=== PATIENT | male | born 1940 | race Caucasian/White ===

== ENCOUNTER 2018-03-30 09:27 | Inpatient (IN) | payer OTHER ==
[~2018-03-30] VITALS: Ht 167.6 cm; Wt 66.1 kg
[2018-03-30 10:07] LABS: BASOPHILS ABSOLUTE AUTO 0.03 K/mm3 (0.00-0.23); BASOPHILS PERCENT AUTO 0 % (0-2); EOSINOPHILS ABSOLUTE AUTO 0.24 K/mm3 (0.00-0.68); EOSINOPHILS PERCENT AUTO 2 % (0-6); Hematocrit 46.5 % (37.0-53.0); Hemoglobin 15.8 g/dL (13.5-17.5); IMMATURE GRAN ABSOLUTE AUTO 0.06 K/mm3 (0.00-0.10); IMMATURE GRAN PERCENT AUTO 0 % (0-1); LYMPHOCYTES ABSOLUTE AUTO 0.95 K/mm3 (0.84-5.20); LYMPHOCYTES PERCENT AUTO 6 % (21-46); MONOCYTES ABSOLUTE AUTO 1.43 K/mm3 (0.16-1.47); MONOCYTES PERCENT AUTO 9 % (4-13); Mean Corpuscular HGB 31.6 pg (26.0-34.0); Mean Corpuscular Volume 93 fL (80-100); Mean Platelet Volume 10.3 fL (9.1-12.4); NEUTROPHILS ABSOLUTE AUTO 12.68 K/mm3 (1.96-9.15); NEUTROPHILS PERCENT AUTO 82 % (41-73); Platelet Count 295 K/mm3 (150-400); RDW Standard Deviation 48.4 fL (35.1-46.3); White Blood Cell Count 15.39 K/mm3 (4.00-11.30)
[2018-03-30] MEDS ORDERED: NIAC500ER PO (10:19)
[2018-03-30] MEDS ORDERED: NIAC500 PO (10:19)
[2018-03-30] MEDS ORDERED: Ventolin/Prove6.7 GM INH (10:20)
[2018-03-30] MEDS ORDERED: LISI20 PO (10:20)
[2018-03-30] MEDS ORDERED: METO50ER PO (10:20)
[2018-03-30] MEDS ORDERED: AMLO5 PO (10:20)
[2018-03-30] MEDS ORDERED: Zanaflex4 MG PO (10:20)
[2018-03-30] MEDS ORDERED: CELE200 PO (10:20)
[2018-03-30 10:32] LABS: Alanine Aminotransfer (ALT/SGP 37 U/L (12-78); Albumin, Blood 3.6 g/dL (3.4-5.0); Alk Phos 85 U/L (50-136); Anion Gap 9 mmol/L (6-16); Aspartate Aminotrans (AST/SGOT 29 U/L (12-37); Bilirubin, Total 0.6 mg/dL (0.1-1.0); Blood Urea Nitrogen 18 mg/dL (8-24); Bun/Creatinine Ratio 36.8 (12.0-20.0); CO2, Blood 23 mmol/L (21-32); Calcium, Blood 8.1 mg/dL (8.5-10.1); Chloride, Blood 99 mmol/L (98-108); Creatinine, Blood 0.49 mg/dL (0.60-1.20); Globulin, Blood 3.7 g/dL (2.2-4.0); Glomerular Filtration Rate >60 (60-); Glucose, Blood 141 mg/dL (70-99); Potassium, Blood 3.8 mmol/L (3.5-5.5); Sodium, Blood 131 mmol/L (136-145); Total Protein, Blood 7.3 g/dL (6.4-8.2); Troponin I 0.018 ng/mL (0.000-0.040)
[2018-03-30 14:15] LABS: Adenovirus Not Detected (NOT DETECT); Bordetella pertussis Not Detected (NOT DETECT); Chlamydophila pneumoniae Not Detected (NOT DETECT); Coronavirus 229E Not Detected (NOT DETECT); Coronavirus HKU1 Not Detected (NOT DETECT); Coronavirus NL63 Not Detected (NOT DETECT); Coronavirus OC43 Not Detected (NOT DETECT); Human Metapneumovirus Not Detected (NOT DETECT); Human Rhinovirus/Enterovirus Not Detected (NOT DETECT); Influenza A Not Detected (NOT DETECT); Influenza A/2009-H1 Not Detected (NOT DETECT); Influenza A/H1 Not Detected (NOT DETECT); Influenza A/H3 Not Detected (NOT DETECT); Influenza B Not Detected (NOT DETECT); Mycoplasma pneumoniae Not Detected (NOT DETECT); Parainfluenza Virus 1 Not Detected (NOT DETECT); Parainfluenza Virus 2 Not Detected (NOT DETECT); Parainfluenza Virus 3 Not Detected (NOT DETECT); Parainfluenza Virus 4 Not Detected (NOT DETECT); Respiratory Syncytial Virus Not Detected (NOT DETECT)
--- NOTE | 2018-03-30 17:52 | NUR ---
PT ARRIVED TO PCU 11 VIA ERICH, IN ATTENDENCE, PT IS A/OX3, BUT FEELS THAT HE IS SLIGHTLY CONFUSED DUE TO ATIVAN GIVEN HIM IN ED. HE IS COOPERATIVE WITH CARE, FOLLOWS COMMANDS WELL, DENIES PAIN, LUNGS ARE COURSE WITH EXP WHEEZING T/O, RESP EVEN AND LABORED, HE IS CURRENTLY ON 2 LITERS O2 VIA N/C, HRR, TELE IN PLACE RUNNING SR PER MONITOR, SEE STRIP, TRACE EDEMA NOTED TO B/L LE, PPP FAINT, CAP REFILL <3SEC, VS STABLE, AFEBRILE, IV SITE IS CLEAR AND PATENT, BTX4, ABD FLAT SOFT NONTENDER, VOIDS WITHOUT DIFF, INCONT WHEN ARRIVED TO ROOM, ATTENDS PLACED, SKIN C/W/D, HERI VARGAS, ORIENTED TO ROOM LAYOUT AND CALL SYSTEM.
--- NOTE | 2018-03-30 20:25 | NUR ---
PM NOTE. ASSUMED CARE OF PT APROX 1900, PT IS A&O, PLEASENT AND COOPERATIVE WITH CARE, PT WAS ADMITTED DUE TO RESP FAILURE. PT IS ON 2L NC AT REST AND 4-5 L W/ACTIVITY, PT IS ON RA AT HOME. PT HAS LABORED BREATHING AND DYSPNEA W/ACTIVITY. TELE INTACT, NSR W/PVCS, PT HAS BIGEMINAL PVCS W/ACTIVITY. PT'S BP IS 97/66, TRACE EDEMA NOTED TO THE PT'S BLE. PT'S KNEES AND HANDS ARE BRIGH RED AND WARM TO TOUCH. L/S ARE COARSE T/O W/WHEEZES. BT PRESENT AND HYPERACTIVE, ABD IS SOFT AND NONTENDER TO PALP, PT HAS LARGE UMBILLICAL HERNIA. 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 PT IS A SBA TO THE BSC W/NURSE IN THE ROOM TO INCREASE 02 PRN. CALL LIGHT IN REACH, BED IS LOCKED AND LOW WILL CONTINUE TO MONITOR.
[2018-03-31 04:14] LABS: BASOPHILS ABSOLUTE AUTO 0.01 K/mm3 (0.00-0.23); BASOPHILS PERCENT AUTO 0 % (0-2); EOSINOPHILS PERCENT AUTO 0 % (0-6); Hematocrit 44.1 % (37.0-53.0); IMMATURE GRAN ABSOLUTE AUTO 0.04 K/mm3 (0.00-0.10); IMMATURE GRAN PERCENT AUTO 1 % (0-1); LYMPHOCYTES ABSOLUTE AUTO 0.38 K/mm3 (0.84-5.20); LYMPHOCYTES PERCENT AUTO 5 % (21-46); MONOCYTES ABSOLUTE AUTO 0.26 K/mm3 (0.16-1.47); MONOCYTES PERCENT AUTO 4 % (4-13); Mean Corpuscular HGB 30.9 pg (26.0-34.0); Mean Corpuscular Volume 91 fL (80-100); Mean Platelet Volume 10.3 fL (9.1-12.4); NEUTROPHILS ABSOLUTE AUTO 6.41 K/mm3 (1.96-9.15); NEUTROPHILS PERCENT AUTO 90 % (41-73); Platelet Count 261 K/mm3 (150-400); RDW Standard Deviation 46.7 fL (35.1-46.3); Red Blood Cell Count 4.85 M/mm3 (4.30-5.90)
[2018-03-31 04:33] LABS: Anion Gap 10 mmol/L (6-16); Blood Urea Nitrogen 20 mg/dL (8-24); Bun/Creatinine Ratio 32.1 (12.0-20.0); CO2, Blood 22 mmol/L (21-32); Calcium, Blood 8.7 mg/dL (8.5-10.1); Chloride, Blood 99 mmol/L (98-108); Creatinine, Blood 0.62 mg/dL (0.60-1.20); Glomerular Filtration Rate >60 (60-); Glucose, Blood 146 mg/dL (70-99); Potassium, Blood 4.2 mmol/L (3.5-5.5); Sodium, Blood 131 mmol/L (136-145)
--- NOTE | 2018-03-31 06:35 | NUR ---
SHIFT SUMMARY. NO ACUTE CHANGES NOTED THIS SHIFT. PT VS HAVE BEEN STABLE. PT HAS BEEN STABLE ON 2L NC WHILE AT REST. W/ACTIVITY HE QUICKLY DESATS DOWN TO THE 70'S-80'S, PT REQUIRES INCREASED O2 AT 4-5 L TO RECOVER. PT HAS BEEN HAVING INCREASED/BIGEMINAL PVCS PER TELE, PT HAS HAD 2 APROX 10 SECOND RUNS OF VTACH. PT IS NOT SYMPTOMATIC DURING THESE EPISODES. EKG WAS OBTAINED. CALL LIGHT IN REACH, PT DENIES ANY CHEST PAIN/PRESSURE OR N/V.
[2018-03-31 06:46] LABS: Magnesium, Blood 1.9 mg/dL (1.6-2.4)
--- NOTE | 2018-03-31 13:02 | NUR ---
Note Pt alert and oriented. Slightly ANIAK. VSS. Pt up to recliner at bedside. Voiding per urinal. Sr with pvc. Talked with DR Azul about PVC and runs of VT during the night. No orders at this time. was here thia am. Pt/ met with Dr Azul. Continue pot.
[2018-03-31] MEDS ORDERED: BREO ELLIPTA 11 EACH INH (14:34)
--- NOTE | 2018-03-31 18:47 | NUR ---
EVENING NOTE PT ALERT AND ORIENTED. SR. PT ENJOYINGH BEING UP IN THE CHAIR WATCHING IT SNOW AND DRINKING DECAF COFFEE. DENIED PAIN OR SOB. PT STILL NEEDING 3-4L N/C. ENCOURAGED HIM TO C&DB. VSS. CONTINUE POT.
--- NOTE | 2018-03-31 19:42 | NUR ---
PM NOTE. ASSUMED CARE OF PT APROX 1900, PT IS A&O, PT IS CURRENTLY UP IN RECLINER CHAIR. PT'S BREATHING IS LABORED BUT EVEN W/RR AT 23, PT IS CURRENTLY 93% ON 3L NC. TELE INTACT, NSR W/FREQUENT PVCS IN THE 80'S, PT'S BP 121/76. 3+ EDEMA NOTED TO THE PT'S BLE. L/S COARSE, WHEEZES T/O. ABD IS SLIGHTLY FIRM BUT NONTENDER TO PALP W/UMBILLICAL HERNIA NOTED. CALL LIGHT IN REACH, WILL CONTINUE TO MONITOR.
--- NOTE | 2018-04-01 06:12 | NUR ---
SHIFT SUMMARY. NO ACUTE CHANGES NOTED THIS SHIFT. PT'S VS HAVE BEEN STABLE T/O SHIFT. PT IS CURRENTLY ON 4L NC AT 91% AT REST. WILL TRY TO TITRATE POSSIBLE. PT WOKE UP DISORIENTED, PT GOT UP AND WALKED TO THE VIVAR LOOKING FOR STAFF, PT WAS EASILY REORIENTED. PT DENIES ANY CHEST PAIN/PRESSURE OR N/V. PT IS SOB WITH ACTIVITY. CALL LIGHT IN REACH, BED IS LOCKED AND LOW WILL CONTINUE TO MONITOR UNTIL REPORT IS GIVEN TO ONCOMING SHIFT.
--- NOTE | 2018-04-01 16:59 | NUR ---
IV DRESSING ON THE RIGHT ARM NOTED EDGES WERE COMING LOOSE FROM SKIN. REMOVED OLD DRESSING, VERIFIED PATENCY OF IV AND CLEANSED AREA PER PROTOCOL, NEW STERILE DRESSING APPLIED. PT DENIES ANY TENDERNESS OF THE IV.
--- NOTE | 2018-04-02 05:29 | NUR ---
SHIFT SUMMARY PT A&O X4, PLEASANT AND COOPERATIVE. LUNG SOUNDS COARSE, DIM IN BASES. SPO2 > 92% ON 3L HUMIDIFIED NC. BREATHING TX'S PROVIDED PER ORDERS. MONITOR SHOWS SR W/ FREQUENT PVC'S, SEE RHYTHM STRIPS PRINTED IN CHART. WILL CONTINUE TO MONITOR AND PROVIDE CARE UNTIL REPORT OFF TO DAY SHIFT RN.
--- NOTE | 2018-04-02 08:15 | NUR ---
INITIAL ASSESSMENT: Pt sitting up at edge of bed. States that he is feeling much better. A/O x4. VSS. HR irregular, appears to be in bigeminy this am. LS course. BIox 94% ON 3l NC/ decreased O2 to 2l. BT positive. Pulses palp. Edema in BLE. Call light in reach. Will monitor.
--- NOTE | 2018-04-02 18:54 | NUR ---
SHift Summary: Pt sitting up in recliner chair finishing dinner. Pt has done well this shift on 2L NC. BIox has remained at 90-94%. He was able to get up to shower and tolerated well. VS have been stable this shift. NO acute changes this shift. Will report to night RN.
--- NOTE | 2018-04-02 19:40 | NUR ---
ASSUMED CARE PT RESTING IN ROOM IN CHAIR COMFORTABLY. PER DAY SHIFT PT HAS BEEN IMPROVING ON O2 AND MOBILITY. PT REPORTS LESS SOB WITH AMBULATION. PT REPORTS PROVIDER TOOK PT OFF OXYGEN ENTIRELY THIS AFTERNOON. PT REPORTS WAS P[UT BACK ON IT LATER IN AFTERNOON TO ASSIST W/ SLIGHTLY DYSPNEA. PT ON 2L AT THIS TIME. RESP EVEN UNLABORED, SATS >92%. PT ABLE TO AMBULATE TO RR WITH O2 AND CANE WITH SBA. DENIES PAIN. SKIN PWD. PT REPORTS WILL SLEEP UPRIGHT IN CHAIR TONIGHT IT IS MORE COMFORTABLE FOR HIM. CALL LIGHT IN REACH.
--- NOTE | 2018-04-03 05:43 | NUR ---
SHIFT SUMMARY PT RESTING IN ROOM COMFORTABLY IN CHAIR AT BEDSIDE. NO ACUTE CHANGES IN STATUS OVERBNIGHT. PT DID HAVE ONE RUN OF BIGEMINY PER TELE, SEE GRAPHIC CHART. PT HAS BEEN PAIN FREE T/O NIGHT. SLEPT IN CHAIR PER REQUEST FOR COMFORT. DENIES NEEDS. PT CALLS APPROPRIATELY. PT TITRATED DOWN TO 1.5L NC, TOLERATING WELL. CALL LIGHT IN REACH.
--- NOTE | 2018-04-03 07:45 | NUR ---
INITIAL ASSESSMENT: Pt sitting up in recliner chair, where he slept last noc. Pt states that it was much more comfortable then the bed. Pt on 2L N/C with biox of 92%. BP stable. BT positive. Pulses palp. Pt denies pain at this time. States that he is feeling pretty good. HR irregular, tele still shows bigeminey. NO other changes at this time. Physician in to see pt. WIll follow through with new orders. Call light in reach. Will monitor.
[2018-04-03] MEDS ORDERED: NICO21TP TOP (14:24)
[2018-04-03] MEDS ORDERED: Pedi-Dri 100,0060 GM TOP (14:25)
[2018-04-03] MEDS ORDERED: AZIT250 PO (14:25)
[2018-04-03] MEDS ORDERED: PRED20 PO (14:27)
--- NOTE | 2018-04-03 16:00 | NUR ---
DISCHARGE: PT AND GIVEN DISCHARGE INSTRUCTIONS. VERBALZIED UNDERSTANDING. DENIES QUIESTIONS. IV DISCONTINUED, CATH INTACT. PT LEFT VIA W/C WITH PROCESS AUTOMATION ENGINEER. STABLE AT TIME OF DISCHARGE.
== END 2018-04-03 15:57 | disposition home or self-care (01) | DRG 189 ==
LOC: ER 09:27 → ERHOLD 11:19 → PCU 11:19
PROVIDERS: Emergency Medicine; ADMIT Hospitalist
DX: J96.01 Acute respiratory failure with hypoxia (principal); J44.1 Chronic obstructive pulmonary disease with (acute) exacerbation; J84.9 Interstitial pulmonary disease, unspecified; E87.1 Hypo-osmolality and hyponatremia; F17.210 Nicotine dependence, cigarettes, uncomplicated; J44.9 Chronic obstructive pulmonary disease, unspecified; I10 Essential (primary) hypertension; Z85.46 Personal history of malignant neoplasm of prostate
CPT/HCPCS: 36415; 71046; 80048; 80053; 83735; 83880; 84145; 84484; 85025; 87486; 87581; 87633; 87798; 93005; 93010; 94640; 94644; 94760; 94761; 96365; 96366; 96375; 97162; 97530; 99285-25; J0456; J1650; J1940; J2060; J2930; J7050

== ENCOUNTER 2018-06-10 02:51 | Inpatient (IN) | payer OTHER ==
[~2018-06-10] VITALS: Ht 167.6 cm; Wt 66.8 kg
[~2018-06-10 02:51] MED LIST: AMLO5 PO; AZIT250 PO; BREO ELLIPTA 11 EACH INH; CELE200 PO; LISI20 PO; METO50ER PO; NIAC500 PO; NIAC500ER PO; NICO21TP TOP; PRED20 PO; Pedi-Dri 100,0060 GM TOP; Ventolin/Prove6.7 GM INH; Zanaflex4 MG PO
[2018-06-10 03:11] LABS: BASOPHILS ABSOLUTE AUTO 0.02 K/mm3 (0.00-0.23); BASOPHILS PERCENT AUTO 0 % (0-2); EOSINOPHILS ABSOLUTE AUTO 0.04 K/mm3 (0.00-0.68); EOSINOPHILS PERCENT AUTO 0 % (0-6); Hematocrit 43.8 % (37.0-53.0); Hemoglobin 14.5 g/dL (13.5-17.5); IMMATURE GRAN PERCENT AUTO 1 % (0-1); LYMPHOCYTES PERCENT AUTO 3 % (21-46); MONOCYTES ABSOLUTE AUTO 0.33 K/mm3 (0.16-1.47); MONOCYTES PERCENT AUTO 2 % (4-13); Mean Corpuscular HGB 31.5 pg (26.0-34.0); Mean Corpuscular HGB Conc 33.1 g/dL (31.5-36.5); Mean Corpuscular Volume 95 fL (80-100); Mean Platelet Volume 10.8 fL (9.1-12.4); NEUTROPHILS ABSOLUTE AUTO 15.23 K/mm3 (1.96-9.15); NEUTROPHILS PERCENT AUTO 94 % (41-73); Platelet Count 156 K/mm3 (150-400); RDW Coefficient Variation 15.7 % (11.7-14.2); White Blood Cell Count 16.22 K/mm3 (4.00-11.30)
[2018-06-10 03:28] LABS: Alanine Aminotransfer (ALT/SGP 32 U/L (12-78); Albumin, Blood 3.2 g/dL (3.4-5.0); Albumin/Globulin Ratio 1.2 (0.8-1.8); Alk Phos 52 U/L (50-136); Anion Gap 9 mmol/L (6-16); Aspartate Aminotrans (AST/SGOT 24 U/L (12-37); Bilirubin, Total 0.3 mg/dL (0.1-1.0); Blood Urea Nitrogen 19 mg/dL (8-24); Bun/Creatinine Ratio 26.4 (12.0-20.0); CO2, Blood 19 mmol/L (21-32); Calcium, Blood 7.8 mg/dL (8.5-10.1); Chloride, Blood 107 mmol/L (98-108); Creatinine, Blood 0.72 mg/dL (0.60-1.20); Globulin, Blood 2.7 g/dL (2.2-4.0); Glomerular Filtration Rate >60 (60-); Glucose, Blood 130 mg/dL (70-99); Potassium, Blood 3.8 mmol/L (3.5-5.5); Sodium, Blood 135 mmol/L (136-145); Total Protein, Blood 5.9 g/dL (6.4-8.2); Troponin I 0.143 ng/mL (0.000-0.040)
[2018-06-10 03:40] LABS: International Normalized Ratio 1.02; Prothrombin Time Results 10.8 Sec (9.7-11.5)
[2018-06-10 05:16] LABS: Source, Urine Catheter
[2018-06-10 05:27] LABS: Bilirubin, Urine Neg (Neg); Blood, Urine Neg (Neg); Glucose Qualitative, Urine Neg (Neg); Ketones, Urine Neg (Neg); Leukocyte Esterase, Urine Neg (Neg); Nitrite, Urine Neg (Neg); Protein, Urine 1+ (Neg); Urobilinogen, Urine NORM (Normal)
[2018-06-10 05:30] LABS: Appearance, Urine Clear (Clear); Color, Urine Yellow (P-Yellow)
[2018-06-10 13:21] LABS: Adenovirus Not Detected (NOT DETECT); Bordetella pertussis Not Detected (NOT DETECT); Chlamydophila pneumoniae Not Detected (NOT DETECT); Coronavirus 229E Not Detected (NOT DETECT); Coronavirus HKU1 Not Detected (NOT DETECT); Coronavirus NL63 Not Detected (NOT DETECT); Coronavirus OC43 Not Detected (NOT DETECT); Human Metapneumovirus Not Detected (NOT DETECT); Human Rhinovirus/Enterovirus Not Detected (NOT DETECT); Influenza A Not Detected (NOT DETECT); Influenza A/2009-H1 Not Detected (NOT DETECT); Influenza A/H1 Not Detected (NOT DETECT); Influenza A/H3 Not Detected (NOT DETECT); Influenza B Not Detected (NOT DETECT); Mycoplasma pneumoniae Not Detected (NOT DETECT); Parainfluenza Virus 1 Not Detected (NOT DETECT); Parainfluenza Virus 2 Not Detected (NOT DETECT); Parainfluenza Virus 3 Not Detected (NOT DETECT); Parainfluenza Virus 4 Not Detected (NOT DETECT); Respiratory Syncytial Virus Not Detected (NOT DETECT)
--- NOTE | 2018-06-10 15:10 | NUR ---
0920 ADMIT NOTE... PT ON ADMIT IMMEDIATELY UP TO BSC FOR VOID AND VERY SMALL BM. PT ON 3L AND INC TO 7L WOB INC AND SATS DOWN TO MID 80'S RANGE. PT VERY WEAK AND REQUIRING FULL SBA. LUNG QUITE DIM. TO AND MINIMAL SECRATIONS AT THIS TIME. ABX AND IVF STARTED.
--- NOTE | 2018-06-10 15:28 | NUR ---
PT CHANGED TO PCU STATUS. HE IS CONT TO REQUIRE 6L NC BUT OVERALL WOB IS DOWN AND RESTING CALMLY, BUT DOES DESAT WHILE EATING TO TALKING TO MUCH. VOIDING W/O PROBLEMS.
--- NOTE | 2018-06-10 16:59 | NUR ---
Per admit trigger, I met with Mr. Pagan and his to offer information about Advanced Directives. informed me that pt has both AD and POLST at home, and she will provide copies tomorrow. Pt asked me to pray for those who love him. Provided this and theraputic listening. I will remain available.
--- NOTE | 2018-06-10 18:12 | NUR ---
PT HAS BEEN DOWN FOR CTA OF CHEST WITH RESULTS PENDING. PT CONT TO HAVE MOD SOB AND WOB DESPITE NC O2 AT 6L. SATS REMAIN IN LOW 91-92 RANGE WITH NOTICIABLE EXERSIONAL WOB. PT EARLIEY COUGHED UP BLOODY SPUTUN X 1 THUS FAR. O2 CHANGED TO HUMIDIFIER. PT HAS BEEN VOIDING IN BED AND EVEN THIS WORK WILL CONTRUBUTE TO INC. WOB. VS NOTED.
--- NOTE | 2018-06-10 19:30 | NUR ---
ASSUMED CARE OF PT PT ALERT AND ORIENTED ON 6L HUMIDIFIED AIR VIA NC. PT SOB WITH EXERTION WITH QUICK DESATURATION AND EXTENDED RECOVERY TIME. LUNG SOUNDS CLEAR WITH DIM BASES. LR RUNNING AT 100 ML/HR. SEE FULL SHIFT ASSESSMENT
[2018-06-11 04:37] LABS: BASOPHILS ABSOLUTE AUTO 0.01 K/mm3 (0.00-0.23); BASOPHILS PERCENT AUTO 0 % (0-2); EOSINOPHILS PERCENT AUTO 0 % (0-6); Hematocrit 40.1 % (37.0-53.0); Hemoglobin 13.3 g/dL (13.5-17.5); IMMATURE GRAN PERCENT AUTO 1 % (0-1); LYMPHOCYTES ABSOLUTE AUTO 0.57 K/mm3 (0.84-5.20); LYMPHOCYTES PERCENT AUTO 3 % (21-46); MONOCYTES ABSOLUTE AUTO 1.04 K/mm3 (0.16-1.47); MONOCYTES PERCENT AUTO 6 % (4-13); Mean Corpuscular HGB 31.1 pg (26.0-34.0); Mean Corpuscular HGB Conc 33.2 g/dL (31.5-36.5); Mean Corpuscular Volume 94 fL (80-100); Mean Platelet Volume 10.8 fL (9.1-12.4); NEUTROPHILS ABSOLUTE AUTO 15.05 K/mm3 (1.96-9.15); NEUTROPHILS PERCENT AUTO 90 % (41-73); Platelet Count 132 K/mm3 (150-400); RDW Coefficient Variation 16.1 % (11.7-14.2); RDW Standard Deviation 55.7 fL (35.1-46.3); Red Blood Cell Count 4.27 M/mm3 (4.30-5.90); White Blood Cell Count 16.77 K/mm3 (4.00-11.30)
[2018-06-11 04:51] LABS: Albumin, Blood 2.5 g/dL (3.4-5.0); Anion Gap 8 mmol/L (6-16); Blood Urea Nitrogen 17 mg/dL (8-24); Bun/Creatinine Ratio 23.7 (12.0-20.0); CO2, Blood 21 mmol/L (21-32); Calcium, Blood 8.4 mg/dL (8.5-10.1); Chloride, Blood 107 mmol/L (98-108); Creatinine, Blood 0.72 mg/dL (0.60-1.20); Glomerular Filtration Rate >60 (60-); Glucose, Blood 149 mg/dL (70-99); Phosphorus, Blood 3.4 mg/dL (2.5-4.9); Potassium, Blood 4.1 mmol/L (3.5-5.5); Sodium, Blood 136 mmol/L (136-145)
--- NOTE | 2018-06-11 05:55 | NUR ---
SHIFT SUMMARY PT STABLE THROUGHOUT THE NIGHT. O2 INCREASED TO 7L AT 0000 PT'S SATS WERE BETWEEN 86-88. PT HAS HAD MODERATE AMOUNT OF TALISHA BLOOD AROUND MOUTH AND CHIN FROM COUGHING ON MULTIPLE OCCASIONS. PT COUGHING BLOOD TINGED SPUTUM INTO TISSUE NEEDED. PT AFEBRILE, SBP 140-150'S, HR IN 70'S. 1600 ML URINARY OUTPUT. WILL REPORT TO DAYSHIFT NURSE.
--- NOTE | 2018-06-11 11:24 | NUR ---
0830 PT A/O AND "FEELING FINE". O2 REQUIREMENTS HAVE GONE UP OVER THE NOC AND NOW AT 7L PER HUMIDIFIED NC. PT DENIES CHEST PAIN OR DISTRESS. IS DESAT WITH MINIMAL EXERTION AND COACHED TO CALL FOR ANY ASSISTANCE.
[2018-06-12 04:13] LABS: BASOPHILS ABSOLUTE AUTO 0.01 K/mm3 (0.00-0.23); BASOPHILS PERCENT AUTO 0 % (0-2); EOSINOPHILS PERCENT AUTO 0 % (0-6); Hematocrit 38.3 % (37.0-53.0); Hemoglobin 12.4 g/dL (13.5-17.5); IMMATURE GRAN ABSOLUTE AUTO 0.12 K/mm3 (0.00-0.10); IMMATURE GRAN PERCENT AUTO 1 % (0-1); LYMPHOCYTES ABSOLUTE AUTO 0.37 K/mm3 (0.84-5.20); LYMPHOCYTES PERCENT AUTO 2 % (21-46); MONOCYTES ABSOLUTE AUTO 1.27 K/mm3 (0.16-1.47); MONOCYTES PERCENT AUTO 7 % (4-13); Mean Corpuscular HGB 30.9 pg (26.0-34.0); Mean Corpuscular HGB Conc 32.4 g/dL (31.5-36.5); Mean Corpuscular Volume 96 fL (80-100); Mean Platelet Volume 11.5 fL (9.1-12.4); NEUTROPHILS ABSOLUTE AUTO 15.38 K/mm3 (1.96-9.15); NEUTROPHILS PERCENT AUTO 90 % (41-73); Platelet Count 142 K/mm3 (150-400); RDW Standard Deviation 56.6 fL (35.1-46.3); Red Blood Cell Count 4.01 M/mm3 (4.30-5.90); White Blood Cell Count 17.15 K/mm3 (4.00-11.30)
[2018-06-12 04:37] LABS: Albumin, Blood 2.3 g/dL (3.4-5.0); Anion Gap 6 mmol/L (6-16); Blood Urea Nitrogen 23 mg/dL (8-24); Bun/Creatinine Ratio 35.8 (12.0-20.0); CO2, Blood 23 mmol/L (21-32); Chloride, Blood 107 mmol/L (98-108); Creatinine, Blood 0.64 mg/dL (0.60-1.20); Glomerular Filtration Rate >60 (60-); Glucose, Blood 155 mg/dL (70-99); Phosphorus, Blood 2.8 mg/dL (2.5-4.9); Potassium, Blood 3.9 mmol/L (3.5-5.5); Sodium, Blood 136 mmol/L (136-145)
--- NOTE | 2018-06-12 05:44 | NUR ---
PCU NOC SHIFT SUMMARY PATIENT ALERT AND ORIENTED X4 T/O SHIFT. PATIENT HAS HYPOXIC RESPIRTORY FAILURE - PATIENT EDUCATED ON COUGH AND DEEP BREATHING AND USING HIS FLUTTER VALVE. PATIENT EDUCATED TO BE SITTING UP WHEN DRINKING DUE TO RESPIRTORY EFFORT (WOB). PATIENT REMAINS ON BEDREST T/O SHIFT. PATIENT ON 13 LPM OXYMIZER T/O SHIFT AND NSR WITH NO ACUTE CHANGES NOTED. PICC WNL, DRAWING AND WORKING WELL. FLUIDS RUNNING PER EMAR. CALL LIGHT W/I REACH. WILL CONTINUE TO MONITOR AND REPORT TO DAYSHIFT RN.
--- NOTE | 2018-06-12 13:16 | NUR ---
Assumed care of pt at approx 0700. Pt VSS. This RN noticed discrepancy between heart rate noted on bedside monitor (48 bpm) and telesales specialist monitoring hr (70's). Pt with no signs of bradycardia. All HR assessments now taken from Tele Monitoring. Pt with 4 beat run of VTach while this RN was at bedside. Pt asymptomatic, denied chest pain or chest pressure, denied shortness of breath. No other VTach runs so far this shift. Pt enjoys participating in coversation with staff, pt's mood brightens with interaction. Pt does become SOB with conversation and SIMPSON. Pt educated on eating slowely to maintain o2 sats >88% and educated to limit conversation for improved respiratory function. Dr. Waldron in this am with pt. Repeat Chest Xray ordered and obtained. RT in with pt frequently this shift for CPT and resp tx. Pt currently resting comfortably, VSS, no apparent sign of distress or discomfrt. Will continue to monitor and update as appropriate. See shift assessment for detailed assessment.
--- NOTE | 2018-06-12 17:31 | NUR ---
No acute changes this shift. Pt remains in no apparent sign of distress. Pt educated on cough and deep breathing and has been compliant with teaching, pt coughing up moderate amount of thick sputum. Pt has been followed and tx by RT thoughout shift, RT using CPT. Pt , Megha, at bedside throughout shift. She is a very supportive presence to pt. Pt remains SIMPSON and SOB with converstion, pt reminded to limit conversation in order to focus on maintaining good respiratory saturations. Pt likes to be made aware of interventions and to be updated on condition frequently. Pt A&O, calls appropriately and answers questions appropriately. Pt seems to be mentating appropriately. Pt with stable BP, but on the lower end (noon vitals 97/55). HR stable in 90's per tele monitoring because bedside monitoring has not been accurate. Left arm swelling noted just above elbow, non tender, not warm to the touch, elevated and encouaged pt to mobilize arm. Pt voids with urnial independantly. Pt remains on 13L oxymizer this shift maintaining saturations between 88-92%. Will continue to monitor and update as appropriate.
--- NOTE | 2018-06-12 22:36 | NUR ---
PM NOTE. ASSUMED CARE OF PT APROX 1900, PT IS A&Ox4, PLEASENT AND COOPERATIVE WITH CARE. PT WAS ADMITTED DUE TO PNA AND COPD EXAC. PT IS ON 15L OXYMIZER AND DESATS VERY QUICKLY WITH MOVEMENT OR TALKING. TELE INTACT, NSR W/MANY PVCS IN THE 90'S PER SHAFT MECHANIC. PT'S BP 114/64. PT HAS 2+ PITTING EDEMA TO HIS BLLE, AND GENERALIZED EDEMA TO HIS ARMS/BACK/CHEST. L/S COARSE W/EXP WHEEZES T/O, PT IS ON 15L OXYMIZER, RR 24 EVEN BUT LABORED W/ACCESSORY MUSCLE USE AT TIMES. ABD IS SLIGHTLY DISTENDED, SOFT AND NONTENDER TO PALP, PT HAS UMBILICAL HERNIA PRESENT. BT PRESENT AND HYPOACTIVE. CALL LIGHT IN REACH, BED IS LOCKED AND LOW WILL CONTINUE TO MONITOR.
[2018-06-13 05:53] LABS: BASOPHILS ABSOLUTE AUTO 0.01 K/mm3 (0.00-0.23); BASOPHILS PERCENT AUTO 0 % (0-2); EOSINOPHILS PERCENT AUTO 0 % (0-6); Hematocrit 37.8 % (37.0-53.0); Hemoglobin 12.5 g/dL (13.5-17.5); IMMATURE GRAN ABSOLUTE AUTO 0.17 K/mm3 (0.00-0.10); IMMATURE GRAN PERCENT AUTO 1 % (0-1); LYMPHOCYTES ABSOLUTE AUTO 0.45 K/mm3 (0.84-5.20); LYMPHOCYTES PERCENT AUTO 3 % (21-46); MONOCYTES ABSOLUTE AUTO 0.92 K/mm3 (0.16-1.47); MONOCYTES PERCENT AUTO 7 % (4-13); Mean Corpuscular HGB 31.3 pg (26.0-34.0); Mean Corpuscular HGB Conc 33.1 g/dL (31.5-36.5); Mean Corpuscular Volume 95 fL (80-100); Mean Platelet Volume 11.5 fL (9.1-12.4); NEUTROPHILS ABSOLUTE AUTO 12.52 K/mm3 (1.96-9.15); NEUTROPHILS PERCENT AUTO 89 % (41-73); Platelet Count 147 K/mm3 (150-400); RDW Standard Deviation 56.2 fL (35.1-46.3); White Blood Cell Count 14.07 K/mm3 (4.00-11.30)
--- NOTE | 2018-06-13 05:58 | NUR ---
SHIFT SUMMARY. PT REQUIRED AN AIRVO AT APROX 2330 THIS SHIFT PER RT'S REQUEST. ONCE AIRVO SETTINGS WERE ESTABLISHED AT 55L AND 80% FIO2 PT'S WORK OF BREATHING DECREASED AND PT WAS ABLE TO RELAX. PT STATED THAT HE SLEPT VERY WELL DUE TO THE AIRVO. PT STILL DESATS VERY QUICKLY BUT IS ABLE TO RECOVER QUICKLY WELL. PT'S OTHER VS HAVE BEEN STABLE T/O SHIFT, NO CARDIAC EVENTS NOTED ON TELE. PT DENIES ANY CHEST PAIN/PRESSURE OR N/V. CALL LIGHT IN REACH, BED IS LOCKED AND LOW WILL CONTINUE TO MONITOR UNTIL REPORT IS GIVEN TO ONCOMING RN.
[2018-06-13 06:14] LABS: Albumin, Blood 2.4 g/dL (3.4-5.0); Anion Gap 9 mmol/L (6-16); Blood Urea Nitrogen 24 mg/dL (8-24); Bun/Creatinine Ratio 36.3 (12.0-20.0); CO2, Blood 24 mmol/L (21-32); Calcium, Blood 8.2 mg/dL (8.5-10.1); Chloride, Blood 104 mmol/L (98-108); Creatinine, Blood 0.66 mg/dL (0.60-1.20); Glomerular Filtration Rate >60 (60-); Glucose, Blood 169 mg/dL (70-99); Phosphorus, Blood 3.2 mg/dL (2.5-4.9); Potassium, Blood 3.7 mmol/L (3.5-5.5); Sodium, Blood 137 mmol/L (136-145)
--- NOTE | 2018-06-13 14:31 | NUR ---
Assumed care of pt at approx 0700. VSS and pt in no apparent sign of respiratory distress. Pt denies chest pain or chest pressure. Pt denies general pain at this time. Pt states he has chronic neck pain but refuses lidocain patch. Pt a&ox4, answers questions appropriately, responds and converses as at baseline. Uses call light PRN. , Megha, with pt at bedside on and off throughout shift. Pt breathing e/u on airvo. pt boosted as needed throughout shift, able to shift in bed to comfort. ABX tx continued this AM. No acute changes so far this shift. Will continue to monitor and update as appropriate. See shift assessment for detailed assessment.
--- NOTE | 2018-06-13 18:33 | NUR ---
Pt improving overall this shift. VSS. Pt with more energy and strength this shift noted with his ability to sit on the edge of the bed for dinner this evening. Pt A&Ox4. No changes or regression in mentation noted. Pt responds appropriately, calls appropriately, is able to position self to comfort, needs help with boosts, makes needs known. Dr. Aranda in with pt this afternoon. Increase in lasix ordered and given per orders. Pt voids with urinal independantly. Dr Aranda relayed to pt that he expects his hospital stay to be between 7-10 days. Pt maintaining oxygen saturations 88-93% on 80% fio2 and 55L airvo. Pt very conversational, but becomes SIMPSON and SOB with conversation. Will continue to monitor and update as appropriate
--- NOTE | 2018-06-13 23:10 | NUR ---
PM NOTE ASSUMED CARE OF PT APROX 1900, PT IS A&Ox4, PLEASENT AND COOPERATIVE WITH CARE. PT WAS ADMITTED DUE TO PNA AND HYPOXIA. PT IS CURRENTLY ON THE AIRVO AT 55L AND 80%FIO2. TELE INTACT, NSR W/MANY PVCS IN THE 90'S PER SUPERVISOR BORDER DEPARTMENT, PT'S BP 117/81. PT HAS 2+ EDEMA TO HIS BLLE AND GENERALIZED EDEMA T/O. PT'S L/S CLEAR IN THE UPPER BASES AND FINE CRACKELS T/O THE MID RIGHT AND LEFT LOWER LOBES. RR IS 28, EVEN AND SLIGHTLY LABORED. BT PRESENT AND HYPERACTIVE, ABD IS SOFT AND NONTENDER TO PALP. CALL LIGHT IN REACH, BED IS LOCKED AND LOW WILL CONTINUE TO MONITOR.
[2018-06-14 03:58] LABS: BASOPHILS ABSOLUTE AUTO 0.02 K/mm3 (0.00-0.23); BASOPHILS PERCENT AUTO 0 % (0-2); EOSINOPHILS PERCENT AUTO 0 % (0-6); Hematocrit 40.4 % (37.0-53.0); Hemoglobin 13.2 g/dL (13.5-17.5); IMMATURE GRAN ABSOLUTE AUTO 0.29 K/mm3 (0.00-0.10); IMMATURE GRAN PERCENT AUTO 2 % (0-1); LYMPHOCYTES ABSOLUTE AUTO 0.67 K/mm3 (0.84-5.20); LYMPHOCYTES PERCENT AUTO 5 % (21-46); MONOCYTES PERCENT AUTO 8 % (4-13); Mean Corpuscular HGB 30.9 pg (26.0-34.0); Mean Corpuscular HGB Conc 32.7 g/dL (31.5-36.5); Mean Corpuscular Volume 95 fL (80-100); Mean Platelet Volume 11.6 fL (9.1-12.4); NEUTROPHILS ABSOLUTE AUTO 11.32 K/mm3 (1.96-9.15); NEUTROPHILS PERCENT AUTO 85 % (41-73); NRBC ABSOLUTE 0.05 K/mm3 (0.00-0.02); NRBC Auto 0.4 /100 WBC (0.0-0.2); Platelet Count 171 K/mm3 (150-400); RDW Coefficient Variation 15.9 % (11.7-14.2); RDW Standard Deviation 55.8 fL (35.1-46.3); Red Blood Cell Count 4.27 M/mm3 (4.30-5.90)
[2018-06-14 04:21] LABS: Albumin, Blood 2.5 g/dL (3.4-5.0); Anion Gap 9 mmol/L (6-16); Blood Urea Nitrogen 24 mg/dL (8-24); Bun/Creatinine Ratio 39.7 (12.0-20.0); CO2, Blood 26 mmol/L (21-32); Calcium, Blood 8.1 mg/dL (8.5-10.1); Chloride, Blood 102 mmol/L (98-108); Creatinine, Blood 0.61 mg/dL (0.60-1.20); Glomerular Filtration Rate >60 (60-); Glucose, Blood 166 mg/dL (70-99); Phosphorus, Blood 3.6 mg/dL (2.5-4.9); Potassium, Blood 3.5 mmol/L (3.5-5.5); Sodium, Blood 137 mmol/L (136-145)
--- NOTE | 2018-06-14 06:41 | NUR ---
SHIFT SUMMARY. NO ACUTE CHANGES NOTED THIS SHIFT. PT HAS SLEPT A FEW HOURS THIS SHIFT. PT'S O2 STATUS HAS SLIGHTLY IMPROVED FROM PREVIOUS SHIFT, HIS AIRVO SETTING ARE STILL 55L AND 80% FIO2 W/O2 SATS AT 93%. PT HAS BEEN ABLE TO USE THE URINAL INDEPENDENTLY T/O THIS SHIFT. PT'S VS HAVE BEEN STABLE. PT DENIES ANY CHEST PAIN/PRESSURE, N/V. CALL LIGHT IN REACH, BED IS LOCKED AND LOW WILL CONTINUE TO MONITOR UNTIL REPORT IS GIVEN TO ONCOMING RN.
--- NOTE | 2018-06-14 08:15 | NUR ---
INITIAL ASSESSMENT: PT IS SITTIGN UP ON THE EDGE OF THE BED WITH LABORED BREATHING. PT STATES HE WAS ABLE TO GET HIMSELF TO A DANGLING POSITION INDEPENDENTLY, THAT IS WHY HE IS SO WINDED. PT IS ALERT AND OX3. PT DENIES PAIN AT THIS TIME. HRR, SR WITH PVC'S PER FRAME HAND. PT IS ON AIRVO 55L WITH 80% FIO2, RT WAS ABLE TO TITRATE DOWN TO 70% FIO2 AT THIS TIME. PT STATES HE HAS BEEN COUGHING UP ALOT MORE SINCE RT DID CPT THIS AM. SOME BROWN TINGED SPUTUM NOTED, PT STATES EARLIER IT WAS A LITTLE MORE RED, WILL CONTINUE TO REASSESS THIS. LS DIM T/O. PT HAS PC WITH THICK SPUTUM. BT+. PT HAS UMBILLICAL HERNIA, PT STATES THIS IS CHRONIC. PPP. SOME PITTING EDEMA NOTED TO BLE. VSS. PT DENIES NEEDS AT THIS TIME, CALL LIGHT IN REACH.
--- NOTE | 2018-06-14 11:45 | NUR ---
ASSESSMENT: INITIAL ASSESSMENT UNCHAGED. VSS. RT HAS BEEN SLOWLY TITRATING OXYGEN DOWN ON THE AIRVO, CURRENTLY THE SETTINGS ARE 45L WITH A 53% FIO2. PT IS OOB TO THE CHAIR. SPUTUM IS NOW A CLEAR COLOR. IS AT BEDSIDE. PT DENIES OTHER NEEDS AT THIS TIME. CALL LIGHT IN REACH.
--- NOTE | 2018-06-14 12:55 | NUR ---
PT WAS ASSISTED TO BSC. PT COMMENTED ON HOW WEAK HIS LEGS ARE, BUT HE WAS ABLE TO PIVOT TRANSFER TO BSC, PT HAD SMALL BM. PT BACK TO CHAIR. PT DENIES OTHER NEEDS AT THIS TIME, WILL CONTINUE TO MONITOR.
--- NOTE | 2018-06-14 17:00 | NUR ---
ASSESSMENT UNCHAGED FROM INITIAL ASSESSMENT. VSS. MEDS GIVEN. PT IS SITTING ON THE COMMODE, STATES HE WANTS TO STAY ON THE COMMODE UNTIL HE HAS A BM. PT DENIES OTHER NEEDS AT THIS TIME. CALL LIGHT IN REACH, WILL CONTINUE TO MONITOR.
--- NOTE | 2018-06-14 18:35 | NUR ---
PT HAS DONE REALLY WELL T/O THE SHIFT. OXYGEN ON AIRVO HAS BEEN ABLE TO BE TITRATED DOWN TO 45L AND FIO2 DOWN TO 45%. VSS, T/O THE SHIFT. NO ACUTE CHANGES THIS SHIFT, WILL REPORT TO ONCOMING RN.
[2018-06-15 05:14] LABS: BASOPHILS ABSOLUTE AUTO 0.06 K/mm3 (0.00-0.23); BASOPHILS PERCENT AUTO 0 % (0-2); EOSINOPHILS PERCENT AUTO 0 % (0-6); Hematocrit 40.7 % (37.0-53.0); Hemoglobin 13.4 g/dL (13.5-17.5); IMMATURE GRAN ABSOLUTE AUTO 0.77 K/mm3 (0.00-0.10); IMMATURE GRAN PERCENT AUTO 5 % (0-1); LYMPHOCYTES ABSOLUTE AUTO 0.72 K/mm3 (0.84-5.20); LYMPHOCYTES PERCENT AUTO 4 % (21-46); MONOCYTES ABSOLUTE AUTO 1.69 K/mm3 (0.16-1.47); MONOCYTES PERCENT AUTO 10 % (4-13); Mean Corpuscular HGB 31.1 pg (26.0-34.0); Mean Corpuscular HGB Conc 32.9 g/dL (31.5-36.5); Mean Corpuscular Volume 94 fL (80-100); Mean Platelet Volume 11.6 fL (9.1-12.4); NEUTROPHILS ABSOLUTE AUTO 13.78 K/mm3 (1.96-9.15); NEUTROPHILS PERCENT AUTO 81 % (41-73); NRBC ABSOLUTE 0.07 K/mm3 (0.00-0.02); NRBC Auto 0.4 /100 WBC (0.0-0.2); Platelet Count 179 K/mm3 (150-400); RDW Coefficient Variation 15.4 % (11.7-14.2); RDW Standard Deviation 53.3 fL (35.1-46.3); Red Blood Cell Count 4.31 M/mm3 (4.30-5.90); White Blood Cell Count 17.02 K/mm3 (4.00-11.30)
[2018-06-15 05:29] LABS: Anion Gap 6 mmol/L (6-16); Blood Urea Nitrogen 21 mg/dL (8-24); Bun/Creatinine Ratio 36.6 (12.0-20.0); CO2, Blood 29 mmol/L (21-32); Calcium, Blood 7.9 mg/dL (8.5-10.1); Chloride, Blood 100 mmol/L (98-108); Creatinine, Blood 0.57 mg/dL (0.60-1.20); Glomerular Filtration Rate >60 (60-); Glucose, Blood 167 mg/dL (70-99); Magnesium, Blood 2.2 mg/dL (1.6-2.4); Sodium, Blood 135 mmol/L (136-145)
--- NOTE | 2018-06-15 06:08 | NUR ---
SHIFT SUMMARY PT ALERT AND ORIENTED X 3 THROUGHOUT SHIFT. HE WAS ABLE TO MAKE NEEDS KNOWN, USED CALL LIGHT APPROPRIATELY AND COMMUNICATED EFFECTIVELY WITH STAFF. PT DENIED ANY UNMET NEEDS. HE HAS BEEN PLEASANT AND COOPERATIVE WITH VITALS AND ASSESSMENTS. PT SLEPT OFF AND ON DURING THE NIGHT. PT HAD NO ACUTE CHANGES TO VITALS OR LOC. CALL LIGHT WITHIN REACH. HE PREFERRED TO SLEEP IN THE RECLINER LAST NIGHT AND WAS ABLE TO AMBULATE TO BSC WITH ONE PERSON SBA AND FWW.
--- NOTE | 2018-06-15 09:25 | NUR ---
PT BACK FROM X-RAY, PT ASSISTED TO BSC. ARIVO BACK ON, PT IS SOB WITH EXERTION.
--- NOTE | 2018-06-15 09:30 | NUR ---
INITIAL ASSESSMENT: PT IS OOB TO CHAIR. PT IS AWAKE ALERT AND OXE. PT DENIES PAIN AT THIS TIME. HRR. LS DIM T/O. BIOX WNL ON 40L FIO2 37% ON AIRVO. PT HAS DRY NPC AT THIS TIME. PT IS EATING BREAKFAST. BT+. PPP. PT HAS PITTING EDEMA TO BLE. PT IS GOING DOWN FOR A CHEST X-RAY SOON. PO AM MEDS GIVEN. VSS. X-RAY TECH IN ROOM TO GET PATIENT. PT HAS BEEN SWITCHED FROM THE ARIVO TO A NRB FLUSH, BIOX WNL FOR TRANSPORT.
--- NOTE | 2018-06-15 09:45 | NUR ---
PT ASSISTED OFF THE BSC, WAS ABLE TO HAVE A SMALL BM. PT BACK TO CHAIR. REST OR AM MEDS GIVEN. PT DENIES OTHER NEEDS AT THIS TIME. CALL LIGHT IN REACH, WILL CONTINUE TO MONITOR.
--- NOTE | 2018-06-15 12:30 | NUR ---
INITIAL ASSESSMENT UNCHANGED. PT IS STILL SITTING UP IN THE CHAIR. AT BEDSIDE HAVING LUNCH WITH THE PATIENT. PT DENIES NEEDS AT THIS TIME, WILL CONTINUE TO MONITOR.
--- NOTE | 2018-06-15 14:00 | NUR ---
REPORT GIVEN TO GORDON RUSH.
--- NOTE | 2018-06-15 15:15 | NUR ---
ASSUMED PT CARE. INTRODUCED SELF TO PT. NO CONCERNS AT THIS TIME. SET UP I/S. IS RECEIVING CHEST PHYSIO THERAPY AT THIS TIME. BED IN LOW POSITION, CALL LITE N REACH, CALLS APPROP
--- NOTE | 2018-06-15 18:28 | NUR ---
PT STATES DOING BETTER. DID GET FROM CHAIR TO BSC TODAY WITH LITTLE ASST. MOSTLY MANAGING LINES. PT QUITE PLEASANT AND TALKATIVE. DENIES PAIN AT THIS TIME. TOLERATING AIRVO. NO OTHER CONCERNS AT THIS TIME. BED IN LOW POSITION, CALL LITE IN REACH, CALLS APPROP
[2018-06-16 00:21] LABS: Hemoglobin 10.5 g/dL (13.5-17.5)
--- NOTE | 2018-06-16 01:23 | NUR ---
PATIENT UPDATE PATIENT WAS OBSERVED TO BE INREASINGLY WEAK AND SHORT OF BREATH. HE STATED DIFFICULTY BREATHING AND REFUSED TO AMBULATE TO BSC FOR BOWEL MOVEMENT. NURSE AND BRICK VENEER MAKER, ALONG WITH PCT WENT INTO ROOM AND INSTRUCTED PATIENT ON IMPORTANCE OF GETTING TO THE BSC DUE TO BM CAUSING SERIOUS HARM TO SKIN THAT IS EXPOSED TO IT. IT WAS AT THIS TIME THAT PT WAS OBSERVED TO HAVE EXTRA LARGE MAROON BM DOWN THE FRONT OF HIS CHAIR AND OUT THE BACK OF HIS GOWN IN THE CHAIR. PT WAS AGREEABLE AT THIS TIME TO A TRANSFER TO BSC. HE HAD ADDITIONAL MAROON AND RED STOOL OUT IN THE BSC. PT DENIES ANY HISTORY OF GI BLEED AND NO REFERENCES WERE FOUND IN HIS H&P TO PAST HX OF BLEEDS. PT IS PALE AND BP IS ELEVATED. HE IS DIAPHORETIC AND CLAMMY WITH A TEMP OF 96.7. HE WAS PROVIDED WITH WARM BLANKETS, RESPIRATORY WAS CALLED TO INCREASE HIS AIRVO DUE TO HIS SOB. DOCTOR WAS NOTIFED ABOUT NEW GI BLEED AND ORDERS WERE RECIEVED TO BEGIN PROTONIX GTT AND GET STAT AND SERIAL H&H'S. PT WAS SHOWN TO HAVE A DECREASE IN HIS H&H SINCE PREVIOUS. ORDERS ARE TO MONITOR CONDITION AND IF BLEEDING DOES NOT SUBSIDE, TO TRANSFER PT TO ICU FOR CLOSER OBSERVATION. PT HAS BEEN CLEANED UP AND TRASNFERRED BACK TO HIS BED. HE IS CURRENTLY RECOVERING AT THIS TIME. O2 DEMANDS ARE STILL INCREASED AND HE CONTINUES TO BREATHE WITH INCREASED DIFFICULTY. HE WILL CONTINUE TO BE MONITORED.
--- NOTE | 2018-06-16 06:05 | NUR ---
SHIFT SUMMARY PT HAS BEEN TIRED THIS SHIFT. HE HAD INCREASED OXYGENATION NEEDS, DESATTED OFTEN AND PRESSURES TRENDED UP THIS SHIFT. PT STATED THAT HE WAS GENERALLY UNCOMFORTABLE AND HAD A DIFFICULT TIME SLEEPING. HE DEVELOPED A GI BLEED DURING THE SHIFT (SEE PREVIOUS NOTE). PT DID HAVE SOME ADDITIONAL BLOODY STOOLS T/O THE SHIFT. DOCTOR IS AWARE AND A GI CONSULT WAS CALLED IN. PT IS CONTINUING TO BE MONITORED. PT HAD SOME AGGRAVATION AT TIMES DURING THE NIGHT. HE WAS TOO WEAK AFTER GETTING TO BED TO STAND AND USE THE BSC SO HE USED BEDPAN INSTEAD. PT WAS ABLE TO USE THE CALL LIGHT APPRORPIATELY AND IT WAS LEFT WITHIN EASY REACH. PT FINALLY GOT SOME SLEEP ABOUT 0430 AND REMAINS SLEEPING AT THIS TIME. HE WILL CONTINUE TO BE MONITORED UNTIL HANDOFF TO DAYSHIFT RN.
[2018-06-16 08:00] LABS: Hematocrit 31.8 % (37.0-53.0); Hemoglobin 10.3 g/dL (13.5-17.5)
--- NOTE | 2018-06-16 11:06 | NUR ---
AM NOTE PT ALERT AND OREINTED. UP IN THE CHAIR AT BEDSIDE. HERE. PT HAD ONE MAROON BM EARLY AM. NO CRAMPING OR BLOATING NOTED FROM PT. DR ALBA CAME TO SEE PT. PROTONIX GTT INFUSING AT 10 MG/HR. DR BOYD DID NOT ADD ANY NEW ORDERS. PT/ AGREED TO A WAIT AND SEE PLAN OF CARE D/T PT LUNG STATUS. WILL BE CHECKING H/H AT [address] STOCKTON HERE TO SEE PT. PT CONTINUE TO REQUIRE AIRVO SUPPORT AT 40%. PT TOLERATED CPT VEST THIS AM WHILE UP INT HE CHAIR. SR WITH SHORT RUNS OF VT NOTED. PT HAD SEVERAL LAST NIGHT WELL. CONTINUE POT.
[2018-06-16 16:01] LABS: Hematocrit 28.5 % (37.0-53.0); Hemoglobin 9.3 g/dL (13.5-17.5)
--- NOTE | 2018-06-16 20:21 | NUR ---
1900 ASSUMED CARE OF PATIENT. UPON ASSESSMENT PATIENT LAYING IN BED, BECOMES MORE DYSPNIC WHEN ENTER ROOM D\T MOUTH BREATING. SEE [facility] FOR FULL ASSESSMENT. CALL LIGHT IN REACH. BED IN LOW POSITION PLANS FOR THIS SHIFT DISSCUSSED.
[2018-06-17 03:47] LABS: BASOPHILS ABSOLUTE AUTO 0.03 K/mm3 (0.00-0.23); BASOPHILS PERCENT AUTO 0 % (0-2); EOSINOPHILS ABSOLUTE AUTO 0.01 K/mm3 (0.00-0.68); EOSINOPHILS PERCENT AUTO 0 % (0-6); Hemoglobin 7.5 g/dL (13.5-17.5); IMMATURE GRAN ABSOLUTE AUTO 2.53 K/mm3 (0.00-0.10); IMMATURE GRAN PERCENT AUTO 10 % (0-1); LYMPHOCYTES ABSOLUTE AUTO 2.28 K/mm3 (0.84-5.20); LYMPHOCYTES PERCENT AUTO 9 % (21-46); MONOCYTES ABSOLUTE AUTO 1.91 K/mm3 (0.16-1.47); MONOCYTES PERCENT AUTO 8 % (4-13); Mean Corpuscular HGB Conc 32.6 g/dL (31.5-36.5); Mean Corpuscular Volume 95 fL (80-100); Mean Platelet Volume 11.9 fL (9.1-12.4); NEUTROPHILS ABSOLUTE AUTO 18.65 K/mm3 (1.96-9.15); NEUTROPHILS PERCENT AUTO 73 % (41-73); NRBC ABSOLUTE 0.25 K/mm3 (0.00-0.02); Platelet Count 176 K/mm3 (150-400); RDW Standard Deviation 55.5 fL (35.1-46.3); Red Blood Cell Count 2.42 M/mm3 (4.30-5.90); White Blood Cell Count 25.41 K/mm3 (4.00-11.30)
[2018-06-17 04:17] LABS: BAND PERCENT MAN 2 % (0-8); BASOPHILS PERCENT MAN 0 % (0-2); EOSINOPHILS PERCENT MAN 0 % (0-6); LYMPHOCYTES ABSOLUTE MAN 2.03 K/mm3 (0.84-5.20); LYMPHOCYTES PERCENT MAN 8 % (21-46); MONOCYTES ABSOLUTE MAN 0.76 K/mm3 (0.16-1.47); MONOCYTES PERCENT MAN 3 % (4-13); MYELOCYTE ABSOLUTE MAN 0.25 K/mm3 (0.00-0.00); MYELOCYTE PERCENT MAN 1 % (0-0); NEUTROPHILS ABSOLUTE MAN 22.36 K/mm3 (1.96-9.15); SEG NEUTROPHILS PERCENT MAN 86 % (41-73); TOTAL CELLS COUNTED 100
--- NOTE | 2018-06-17 08:49 | NUR ---
LOW BP PT RECEIVEING A UNIT OF PRBC. DR BOYD AWARE. PT BP LOW. REPORTED TO DR STOCKTON IN PERSON. NO ORDERS RECEIVED. CONTINUE TO INFUSE BLOOD. CONTINUE POT.
--- NOTE | 2018-06-17 10:15 | NUR ---
TRANSFER TO ICU [address] STOCKTON TO TRANSFER TO ICU. ROOM ASIGNMENT RECEIVED FOR ICU 7. REPORT CALLED TO SYBIL RUSH. CALLED PT TO LET HER KNOW ABOUT TRANSFER. RECALLED NOLA AFTER HE WAS SETTLED IN ICU7. PT AGREEABLE TO MOVE. DR AUGUSTIN CAME INTO THE ROOM UPON ARRIVAL TO ICU. CONTINUE POT.
--- NOTE | 2018-06-17 10:19 | NUR ---
ASSUMED CARE REPORT FROM TYLER RUSH, PT. ARRIVES TO UNIT ON 7L HIGH FLOW NC, PT SOB UPON ARRIVAL AND TRANSFER TO ICU BED. DR. AUGUSTIN AT BEDSIDE PER DR. NAM PT PLACED ON BIPAP, 01/10, 40%. PT. CURRENTLY HAS ONE UNIT OF BLOOD PRODUCTS INFUSING, HYPOTENSIVE UPON ARRIVAL, SYSTOLIC BP IN THE 80S. PT. DENIES PAIN AT THIS TIME. DENIES N/V. PT. AFEBRILE. PROVIDED WITH WARM BLANKETS PER REQUEST. 500CC BOLUS OF LR INFUSING PER DR. AUGUSTIN AND PT STARTED ON ANTIBIOTICS. ORAL MEDICATIONS HELD UNTIL MORE RESP. STABLE AND OFF BIPAP. CALL LIGHT IN REACH, BED IN LOW POSITION.
--- NOTE | 2018-06-17 11:09 | NUR ---
UPDATE BLOOD PRODUCTS COMPLETED, PT. TOLERATING BIPAP MASK WELL. BP IMPROVING.
--- NOTE | 2018-06-17 12:00 | NUR ---
DR. BOYD AT BEDSIDE NUC MED TEST CANCELLED DUE TO PT BEING UNABLE TO LAY FLAT, PLANS FOR ABD. CT.
[2018-06-17 12:11] LABS: Hematocrit 24.6 % (37.0-53.0); Hemoglobin 8.1 g/dL (13.5-17.5)
[2018-06-17 12:38] LABS: Magnesium, Blood 2.4 mg/dL (1.6-2.4)
[2018-06-17 12:42] LABS: Anion Gap 8 mmol/L (6-16); Blood Urea Nitrogen 53 mg/dL (8-24); CO2, Blood 26 mmol/L (21-32); Calcium, Blood 7.4 mg/dL (8.5-10.1); Chloride, Blood 104 mmol/L (98-108); Creatinine, Blood 0.74 mg/dL (0.60-1.20); Glomerular Filtration Rate >60 (60-); Glucose, Blood 94 mg/dL (70-99); Phosphorus, Blood 4.1 mg/dL (2.5-4.9); Potassium, Blood 3.8 mmol/L (3.5-5.5); Sodium, Blood 138 mmol/L (136-145)
--- NOTE | 2018-06-17 13:02 | NUR ---
HYPOTENSION PT. REMAINS HYPOTENSIVE. DR. AUGUSTIN AWARE, ADDITIONAL 500CC BOLUS COMPLETED AND PT STARTED ON LEVOPHED AT 5MCG/KG/MIN. PT NOW AT BEDSIDE AND UPDATED ON PT CONDITION.
[2018-06-17 13:15] LABS: Source, Urine Clean Catch
[2018-06-17 13:28] LABS: Bilirubin, Urine Neg (Neg); Blood, Urine Neg (Neg); Glucose Qualitative, Urine Neg (Neg); Ketones, Urine Neg (Neg); Leukocyte Esterase, Urine 1+ (Neg); Nitrite, Urine Neg (Neg); Protein, Urine Neg (Neg); Specific Gravity, Urine 1.015 (1.003-1.022); Urobilinogen, Urine NORM (Normal)
[2018-06-17 14:51] LABS: Appearance, Urine Clear (Clear); Color, Urine Yellow (P-Yellow)
[2018-06-17 14:53] LABS: Red Blood Cells, Urine 0-2 /hpf (0-2); White Blood Cells, Urine 0-2 /hpf (0-5)
[2018-06-17 14:54] LABS: Bacteria Rare /hpf; Squamous Epithelial Cells Rare /hpf (Few); Yeast/Fungi Urine Few /hpf
--- NOTE | 2018-06-17 17:18 | NUR ---
PT TO CT AND BACK.
--- NOTE | 2018-06-17 17:53 | NUR ---
SHIFT SUMMARY PT. REMAINS ALERT AND ORIENTED. PT. ON BIPAP T/O SHIFT WITH SHORT BREAKS. PT. CONTINUES ON CLEAR LIQUID DIET. AWAITING CT RESULTS. PT. STARTED ON LEVOPHED THIS SHIFT TITRATED TO 10MCG/KG/MIN. PT. VSS AT THIS TIME. CALL LIGHT IN REACH, REPORT TO ONCOMING RN.
--- NOTE | 2018-06-17 19:30 | NUR ---
ASSUMED CARE OF PT PT ALERT AND ORIENTED SITTING UP IN BED WEARING BIPAP 10/5 30%. LEVOPHED INFUSING AT 15 MCG/MIN. PT DENIES PAIN AT THIS TIME, NO SIGN OF ACTIVE BLEEDING. SEE FULL SHIFT ASSESSMENT.
[2018-06-17 20:25] LABS: Hematocrit 25.2 % (37.0-53.0); Hemoglobin 8.3 g/dL (13.5-17.5)
[2018-06-17 20:45] LABS: Creatine Kinase MB 2.5 ng/mL (0.0-3.6); Creatine Kinase MB Index 2.1 (0.0-4.0); Troponin I 0.055 ng/mL (0.000-0.040)
--- NOTE | 2018-06-17 22:00 | NUR ---
PERFORMED BLADDER SCAN PER DR AUGUSTIN'S REQUEST. PT VOIDED AND FELT THAT HE HAD COMPLETELY EMPTIED HIS BLADDER, BLADDER SCAN SHOWED 430 ML OF URINE RETAINED. VICTOR MANUEL ORDONEZ INSERTED COUDE AND IMMEDIATELY 400 ML OF URINE NOTED IN BAG.
--- NOTE | 2018-06-18 02:25 | NUR ---
PT CONTINUES TO BE HYPOTENSIVE WITH MAP IN THE LOW 50'S ON 20 MCG/MIN LEVOPHED. CALL PLACED TO DR CARDENAS, ORDER FOR VASOPRESSIN PLACED.
[2018-06-18 04:31] LABS: Hematocrit 18.9 % (37.0-53.0); Hemoglobin 6.2 g/dL (13.5-17.5)
[2018-06-18 04:32] LABS: BASOPHILS ABSOLUTE AUTO 0.08 K/mm3 (0.00-0.23); BASOPHILS PERCENT AUTO 0 % (0-2); Hematocrit 20.8 % (37.0-53.0); Hemoglobin 6.7 g/dL (13.5-17.5); LYMPHOCYTES ABSOLUTE AUTO 2.34 K/mm3 (0.84-5.20); LYMPHOCYTES PERCENT AUTO 7 % (21-46); MONOCYTES PERCENT AUTO 8 % (4-13); Mean Corpuscular HGB 29.9 pg (26.0-34.0); Mean Corpuscular HGB Conc 32.2 g/dL (31.5-36.5); Mean Corpuscular Volume 93 fL (80-100); Mean Platelet Volume 11.3 fL (9.1-12.4); NRBC ABSOLUTE 2.34 K/mm3 (0.00-0.02); NRBC Auto 6.8 /100 WBC (0.0-0.2); Platelet Count 199 K/mm3 (150-400); RDW Coefficient Variation 19.6 % (11.7-14.2); RDW Standard Deviation 65.9 fL (35.1-46.3); Red Blood Cell Count 2.24 M/mm3 (4.30-5.90); White Blood Cell Count 34.55 K/mm3 (4.00-11.30)
[2018-06-18 04:37] LABS: EOSINOPHILS ABSOLUTE AUTO 0.01 K/mm3 (0.00-0.68); EOSINOPHILS PERCENT AUTO 0 % (0-6); IMMATURE GRAN ABSOLUTE AUTO 4.44 K/mm3 (0.00-0.10); IMMATURE GRAN PERCENT AUTO 13 % (0-1); NEUTROPHILS ABSOLUTE AUTO 24.78 K/mm3 (1.96-9.15); NEUTROPHILS PERCENT AUTO 72 % (41-73)
[2018-06-18 04:46] LABS: International Normalized Ratio 1.14; Prothrombin Time Results 11.9 Sec (9.7-11.5)
[2018-06-18 04:51] LABS: Alanine Aminotransfer (ALT/SGP 19 U/L (12-78); Albumin, Blood 1.9 g/dL (3.4-5.0); Albumin/Globulin Ratio 0.9 (0.8-1.8); Alk Phos 25 U/L (50-136); Anion Gap 10 mmol/L (6-16); Aspartate Aminotrans (AST/SGOT 23 U/L (12-37); Bilirubin, Total 0.4 mg/dL (0.1-1.0); Blood Urea Nitrogen 52 mg/dL (8-24); Bun/Creatinine Ratio 70.8 (12.0-20.0); CO2, Blood 24 mmol/L (21-32); Calcium, Blood 6.9 mg/dL (8.5-10.1); Chloride, Blood 104 mmol/L (98-108); Creatine Kinase MB 2.3 ng/mL (0.0-3.6); Creatine Kinase MB Index 2.3 (0.0-4.0); Creatinine, Blood 0.73 mg/dL (0.60-1.20); Globulin, Blood 2.1 g/dL (2.2-4.0); Glomerular Filtration Rate >60 (60-); Glucose, Blood 180 mg/dL (70-99); Phosphorus, Blood 3.6 mg/dL (2.5-4.9); Potassium, Blood 3.8 mmol/L (3.5-5.5); Sodium, Blood 138 mmol/L (136-145); Troponin I 0.068 ng/mL (0.000-0.040)
[2018-06-18 04:53] LABS: BAND PERCENT MAN 5 % (0-8); BASOPHILS PERCENT MAN 0 % (0-2); EOSINOPHILS PERCENT MAN 0 % (0-6); LYMPHOCYTES ABSOLUTE MAN 2.07 K/mm3 (0.84-5.20); LYMPHOCYTES PERCENT MAN 6 % (21-46); METAMYELOCYTE ABSOLUTE MAN 0.34 K/mm3 (0.00-0.00); METAMYELOCYTE PERCENT MAN 1 % (0-0); MONOCYTES ABSOLUTE MAN 2.41 K/mm3 (0.16-1.47); MONOCYTES PERCENT MAN 7 % (4-13); MYELOCYTE ABSOLUTE MAN 0.69 K/mm3 (0.00-0.00); MYELOCYTE PERCENT MAN 2 % (0-0); NEUTROPHILS ABSOLUTE MAN 29.02 K/mm3 (1.96-9.15); SEG NEUTROPHILS PERCENT MAN 79 % (41-73); TOTAL CELLS COUNTED 100
[2018-06-18 05:12] LABS: PO2 Arterial 73.4 mmHg (80-100); pH Blood Arterial 7.48 (7.35-7.45)
--- NOTE | 2018-06-18 07:32 | NUR ---
PT CONTINUES TO HYPOTENSIVE DESPITE FLUID BOLUS, VASOPRESSIN AND LEVOPHED @ 30 MCG/MIN. PT APPEARS PALE AND ANXIOUS. HGB WAS 6.2 THIS MORNING AND HE IS RECEIVING 1 UN[address] PR[address] AT THIS TIME. DR AUGUSTIN CONSULTED REGARDING PT'S LABS, HYPOTENSION AND INCREASED RESPIRATORY EFFORT. PT PLACED BACK ON BIPAP TO DECREASE WORK OF BREATHING. PT'S CHULA NOTIFIED OF PT'S CURRENT CONDITION PER HIS REQUEST. PLEASE SEE PREVIOUS SHIFT NOTES AND ASSESSMENT. WILL REPORT TO DAYSHIFT NURSE.
--- NOTE | 2018-06-18 07:35 | NUR ---
Recieved report from Andres RUSH. Patient semi monreal with HOB at 30 Degrees. He is alert and oriented to self and family and place. He is wearing BIPAP 10/5 BR 10, FiO2 25% and sats 100% and breathing at 28 RR. He has PICC line LIBRADO dressing intact and site WNL's and is infusing Levophed 30mcg/kg/min , Vasopressin 0.04 inits/min and PRBC at 125 ml/hr, Protonix 10ml/hr. He has thick liquid stool black stool and rectal tube being placed. Bed change being done with partial bath. He has 16Fr ruiz draining to gravity for urine retention and has light eliazar urine. Patient becomes very SOB with any movement.
--- NOTE | 2018-06-18 09:00 | NUR ---
Patient intubated by Dr Lay using 7.5 ET and 25 cm at lips. He was started on Propofol at 30 mcg/kg/min, Levophed remains at 30mcg, kg/min, vasopressin at 0.04 unit/min and added Phenylepherine at 150mcg for about 20 minutes until Epinepherine arrived and started it at 150 mcg and stopped Phenylepherine. Systolics are 70-90's. Started NS bolus and increased blood rate to 250ml/hr and syatolic in the upper 90's with MAP >65. Started with vent settings of AC 14, TV 400, FiO2 100% and weaned to 50% and PEEP 5.0 and stats low to mid 90%.
--- NOTE | 2018-06-18 09:42 | NUR ---
06/18/18 0942 Min Lawrence PATIENT INTUBATED AND ON PROPOFOL DRIP.3-LEAD EKG REVIEWED WITH PHYSICIAN PRIOR TO START OF PROCEDURE.History, Chart, Medications and Allergies reviewed before start of procedure.MONITOR INTACT WITH CONTINUOUS PULSE OXIMETRY AND INTERMITTENT BP.O2 VIA N/C INTACT THROUGHOUT SEDATION/PROCEDURE.PATIENT DETERMINED TO BE ASA APPROPRIATE FOR PROPOFOL SEDATION PRIOR TO START OF PROCEDURE BY
--- NOTE | 2018-06-18 10:30 | NUR ---
Scope team in room and are finishing up, two clips and one spot cardirized of ulcer. Weaned off epi gtt and decreased Levophed to 25mcg/kg/min, no changes to Vasopressin or Propofol, Protonix, started LR at 200ml/hr and 2nd unit PRBC finishing and started Albumin. Started 2, 18ga IV one in each forearm. Vent setting change was TV to 450 no other changes. Zosyn done. OG tube place and verified.
--- NOTE | 2018-06-18 11:00 | NUR ---
PATIENT PERMISSION PATIENT GAVE THIS STUDENT NURSE PERMISSION TO PROVIDE CARE ON 06/18/18 FROM [id number].
[2018-06-18 11:31] LABS: PCO2 Arterial 45.5 mmHg (35-45); PO2 Arterial 69.7 mmHg (80-100); pH Blood Arterial 7.25 (7.35-7.45)
--- NOTE | 2018-06-18 12:12 | NUR ---
3rd unit PRBC infusing, no other changes at this time . Albumin done and have two other albumin infusions.
[2018-06-18 12:21] LABS: Creatine Kinase MB 3.6 ng/mL (0.0-3.6); Creatine Kinase MB Index 2.9 (0.0-4.0); Troponin I 0.092 ng/mL (0.000-0.040)
[2018-06-18 12:25] LABS: Hematocrit 25.7 % (37.0-53.0); Hemoglobin 8.7 g/dL (13.5-17.5)
--- NOTE | 2018-06-18 13:30 | NUR ---
Patient resting quietly on Propofol 30 mcg/kg/min, weaned off Epinepherine and have dropped Levophed to 20mcg/kg/min. Systolics 120's HR 70 and has very few PVC and this am many frequent and small runs of v-tach. He remsins on earlier vent settings and sats mid 90%'s.
--- NOTE | 2018-06-18 16:11 | NUR ---
Weanbed off Vasopressin and systolics low 100's and have increased Propofol to 40 mcg/kg /min as he is chewing at ET and moving arouns a little bit more. No vent setting changes and Continueing Protonix at 10ml/hr, Levophed 20mcg/kg/min, Propofol at 40 mcg/kg/min LR at 200ml/hr and all three doses of Albumin are in a nd intermitent Abx. Patient has gone home for the day. Dr Gannon by to check on patient. Hgb has increased to 8.7.
--- NOTE | 2018-06-18 17:55 | NUR ---
Patient going back and forth between SR and A-fib, rates 90-160's and discussed with Dr Aranda and started with Amiodarone bolus then 1mg for 6 houts and the 1/2 mg for 18 hours. Increased FiO2 to 60% and sast low 90%'s. Increased Levophed to 25 mcg/kg/min for systolics in the 70-80's and are currently 110-120's. Patient and some leakage around rectal tube that was placed this am when changing him, he has about 100ml of liquid brown stool and OG has dark output in very small amount in OG only. He has low grade fever and will medicate with Liq. Tylenol.
[2018-06-18 18:00] LABS: Hematocrit 25.2 % (37.0-53.0); Hemoglobin 8.4 g/dL (13.5-17.5)
--- NOTE | 2018-06-18 19:00 | NUR ---
ASSUMED CARE ASSUMED CARE OF PATIENT. REMAINS INTUBATED- AC 14, TV 450, PEEP 5, FIO2 60%. RR MID-20s AND APPEARS SLIGHTLY LABORED. SEDATED WITH PROPOFOL 30MCG/KG/MIN. OPENS EYES TO VERBAL STIMULI. WITHDRAWS ALL EXTREMITIES TO STIMULI. NOT FOLLOWING ANY COMMANDS. MILANA, 3MM, SLUGGISH. BILATERAL SOFT WRIST RESTRAINTS IN PLACE. MONITOR SHOW AFIB, RATE 100-130s. AMIODARONE CONTINUES @ 1MG/MIN. LEVOPHED INFUSING @ 25MCG/MIN TO MAINTAIN MAP >65. PROTONIX GTT CONTINUES PER ORDER. OG TO LIS WITH BROWN DRAINAGE. RECTAL TUBE PATENT WITH LIQUID BROWN STOOL. GRIMES PATENT AND DRAINING CLEAR YELLOW URINE. LR INFUSING @ 200CC/HR PER ORDER. PAS TO BLE. 2+ EDEMA NOTED TO BILATERAL UPPER AND LOWER EXTREMITIES. SEE SHIFT ASSESSMENT FOR FULL ASSESSMENT.
--- NOTE | 2018-06-18 20:45 | NUR ---
Review of pt care and prognosis with nursing. went home. Will review plan with secondary set up man in am.
--- NOTE | 2018-06-18 21:45 | NUR ---
NSR MONITOR SHOWS NSR WITH PVCs, RATE 70s. AMIODARONE CONTINUES @ 1MG/MIN.
[2018-06-18 23:33] LABS: Hematocrit 24.1 % (37.0-53.0); Hemoglobin 8.1 g/dL (13.5-17.5)
--- NOTE | 2018-06-19 03:30 | NUR ---
AMIODARONE MONITOR SHOWS SINUS BRADYCARDIA WITH PVCs, RATE 50s. AMIODARONE ON STANDBY AT THIS TIME.
[2018-06-19 03:47] LABS: Hematocrit 23.7 % (37.0-53.0); Hemoglobin 7.9 g/dL (13.5-17.5); Mean Corpuscular HGB Conc 33.3 g/dL (31.5-36.5); Mean Platelet Volume 11.7 fL (9.1-12.4); NRBC Auto 3.8 /100 WBC (0.0-0.2); Platelet Count 117 K/mm3 (150-400); RDW Coefficient Variation 18.1 % (11.7-14.2); RDW Standard Deviation 58.4 fL (35.1-46.3); Red Blood Cell Count 2.63 M/mm3 (4.30-5.90)
[2018-06-19 03:48] LABS: Mean Corpuscular Volume 90 fL (80-100)
--- NOTE | 2018-06-19 04:00 | NUR ---
CALL TO MD DR. TREVIZO NOTIFIED OF HR 50s AND THAT AMIODARONE IS ON HOLD. WILL CONTINUE TO HOLD AT THIS TIME.
[2018-06-19 05:18] LABS: Albumin, Blood 2.8 g/dL (3.4-5.0); Anion Gap 6 mmol/L (6-16); Blood Urea Nitrogen 23 mg/dL (8-24); CO2, Blood 26 mmol/L (21-32); Calcium, Blood 6.5 mg/dL (8.5-10.1); Chloride, Blood 105 mmol/L (98-108); Creatinine, Blood 0.52 mg/dL (0.60-1.20); Glomerular Filtration Rate >60 (60-); Glucose, Blood 193 mg/dL (70-99); Phosphorus, Blood 3.1 mg/dL (2.5-4.9); Potassium, Blood 4.1 mmol/L (3.5-5.5); Sodium, Blood 137 mmol/L (136-145)
[2018-06-19 05:26] LABS: BAND PERCENT MAN 1 % (0-8); BASOPHILS PERCENT MAN 0 % (0-2); EOSINOPHILS PERCENT MAN 0 % (0-6); LYMPHOCYTES ABSOLUTE MAN 0.34 K/mm3 (0.84-5.20); LYMPHOCYTES PERCENT MAN 1 % (21-46); METAMYELOCYTE ABSOLUTE MAN 0.68 K/mm3 (0.00-0.00); METAMYELOCYTE PERCENT MAN 2 % (0-0); MONOCYTES ABSOLUTE MAN 1.02 K/mm3 (0.16-1.47); MONOCYTES PERCENT MAN 3 % (4-13); NEUTROPHILS ABSOLUTE MAN 32.14 K/mm3 (1.96-9.15); SEG NEUTROPHILS PERCENT MAN 93 % (41-73); TOTAL CELLS COUNTED 100
--- NOTE | 2018-06-19 06:34 | NUR ---
SHIFT SUMMARY NO ACUTE CHANGES. REMAINS INTUBATED. FIO2 NOW 70% TO MAINTAIN SP02 >90%. SEDATED WITH PROPOFOL @ 30MCG/KG/MIN. OPENS EYES TO STIMULI AND WITHDRAWS EXTREMITIES TO STIMULI. MINIMAL SPONTANEOUS MOVEMENT NOTED. MILANA, 3MM, SLUGGISH. BILATERAL SOFT WRIST RESTRAINTS REMAIN IN PLACE. CONVERTED TO NSR WITH PVCs AT APPROCIMATELY 2145. HR NOW 60s. AMIODARONE REMAINS OFF. LEVOPHED INFUSED BETWEEN 7-25MCG/MIN DURING SHIFT- NOW INFUSING @ 7MCG/MIN. VASOPRESSIN RESTARTED DURING SHIFT, BUT IS NOW ON STANDBY. PROTONIX GTT CONTINUES @ 8MG/HR PER ORDER. LR INFUSING @ 200CC/HR PER ORDER. AFEBRILE. OG TO LIS WITH 100CC BROWN DRAINAGE. RECTAL TUBE TO GRAVITY WITH 100CC DARK BROWN LIQUID STOOL. GRIMES PATENT AND DRAINING TO GRAVITY. PAS TO BLE. WILL REPORT TO DAY SHIFT RN WHEN AVAILABLE.
--- NOTE | 2018-06-19 07:51 | NUR ---
Recieved report from Fernanda RUSH. Patient positioned on left side and HOB at 30 degrees. He is intubated and sedated. He has 7.5ET and is 25 cm at lips with vent settings of AC 14, TV 450, FiO2 70% and PEEP 5.0 and sats are 94%. He withdraws tgo painful stimuli and occassionaly opens eyes to loud verbal stimuli. He has PICC line in LIBRADO, dressing intact and site WNL's and is infusing Propofol at 30 mcg/kg/min, Protonix 10ml/hr, Levophed 7 mcg/min, and LR at 200ml/hr. He also has Bilateral 18ga IV in forearms, both with dressings intact and sites WNL's. He has [address] draining to gravity with clear yellow urine, He has bilateral SCD's in placeo calves. He has rectal tube in place and has dark black/green output in small amounts. Temporal temp was 97.4. Dr Lay in room with spouse, new orders. He converted to SR with multiple pvc with runs up to 4, Amiodarone remains off. Systolic 90's and HR 65. Will continue to monitor for changes.
--- NOTE | 2018-06-19 09:40 | NUR ---
Gave meds as per mar for new meds. Repositioned patient and sats went to 87-88 and increased FiO2 to 80% after frequent suctioning of creamy ET secretions. and no change. VSS
[2018-06-19 10:30] LABS: Vancomycin, Trough 4.1 ug/mL (5.0-10.0)
--- NOTE | 2018-06-19 10:59 | NUR ---
Dr Nogueira was in room and changed vent settings to spontaneous mode, PS 10, FiO2 70% and PEEP 10 and sats increased to 94%.
[2018-06-19 11:26] LABS: Hematocrit 25.4 % (37.0-53.0); Hemoglobin 8.4 g/dL (13.5-17.5)
--- NOTE | 2018-06-19 11:28 | NUR ---
Reduced FiO2 to 60% with sats 98% and they dropped to 94% with that decrease. Levophed increased to 9mcg/min for systolics in the 80's and MAPS< 65.
--- NOTE | 2018-06-19 14:34 | NUR ---
PATIENT CONTINUES TO REST ON SEDATION. HE REMAINS ON SPONTANEOUS MODE, PS 10 FiO2 55% PEEP 10.0 AND SATS LOW 90%, LEVOPHED AT 9MCG/MIN, PROPOFOL AT 30MCG/KG/MIN, PROTONIX 10ML/HR, AND LR HAS BEEN STOPPED BY DR BECK.
[2018-06-19 16:58] LABS: Hematocrit 25.7 % (37.0-53.0); Hemoglobin 8.6 g/dL (13.5-17.5)
--- NOTE | 2018-06-19 17:47 | NUR ---
Have weaned FiO2 down to 45% and rewmains on Spon. Mode at PS10, FiO2 45%, and Peep 10 and sats mid 90%'s. Went to double strength Levophed and is at 12mcg/min systolic 100-110 and HR 60-70's. He opens eyes to verbal stimuli. Protonix continues, with Propofol 30 mcg/kg/min, with intermitent abx. Patient has 4100ml of clear yellow.
--- NOTE | 2018-06-19 19:00 | NUR ---
ASSUMED CARE ASSUMED CARE OF PATIENT. REMAINS INTUBATED- SPONTANEOUS PS 10, PEEP 10, FIO2 45%. RESP RATE 24-30. SEDATED WITH PROPOFOL @ 30MCG/KG/MIN. OPENS EYES TO VERBAL STIMULI. FOLLOWS SIMPLE COMMANDS. NODS HEAD APPROPRIATELY TO YES/NO QUESTIONS. MOVES ALL EXTREMITIES WEAKLY. BILATERAL SOFT WRIST RESTRAINTS IN PLACE. MONITOR SHOWS NSR, RATE 70s. LEVOPHED INFUSING @ 12MCG/MIN TO MAINTAIN MAP >65. OG TO LIS WITH LIGHT BROWN DRAINAGE. RECTAL TUBE IN PLACE WITH LIQUID BROWN STOOL. PROTONIX GTT @ 8MG/HR (10CC/HR) PER ORDER. GRIMES PATENT AND DRAINING TO GRAVITY- CLEAR YELLOW URINE. PAS TO BLE. 2+ GENERAL EDEMA NOTED. WOUNDS NOTED. SEE SHIFT ASSESSMENT FOR FULL ASSESSMENT.
[2018-06-19 23:11] LABS: Hematocrit 24.2 % (37.0-53.0); Hemoglobin 8.2 g/dL (13.5-17.5)
[2018-06-20 04:11] LABS: Hematocrit 23.9 % (37.0-53.0); Hemoglobin 8.1 g/dL (13.5-17.5); Mean Corpuscular HGB 30.7 pg (26.0-34.0); Mean Corpuscular HGB Conc 33.9 g/dL (31.5-36.5); Mean Corpuscular Volume 91 fL (80-100); Mean Platelet Volume 11.5 fL (9.1-12.4); NRBC ABSOLUTE 1.02 K/mm3 (0.00-0.02); NRBC Auto 2.9 /100 WBC (0.0-0.2); Platelet Count 147 K/mm3 (150-400); RDW Standard Deviation 57.1 fL (35.1-46.3); Red Blood Cell Count 2.64 M/mm3 (4.30-5.90); White Blood Cell Count 35.74 K/mm3 (4.00-11.30)
[2018-06-20 04:29] LABS: Alanine Aminotransfer (ALT/SGP 21 U/L (12-78); Albumin, Blood 2.4 g/dL (3.4-5.0); Albumin/Globulin Ratio 1.1 (0.8-1.8); Alk Phos 32 U/L (50-136); Anion Gap 6 mmol/L (6-16); Aspartate Aminotrans (AST/SGOT 34 U/L (12-37); Bilirubin, Total 0.9 mg/dL (0.1-1.0); Blood Urea Nitrogen 15 mg/dL (8-24); CO2, Blood 29 mmol/L (21-32); Calcium, Blood 7.4 mg/dL (8.5-10.1); Chloride, Blood 105 mmol/L (98-108); Creatinine, Blood 0.58 mg/dL (0.60-1.20); Globulin, Blood 2.2 g/dL (2.2-4.0); Glomerular Filtration Rate >60 (60-); Glucose, Blood 161 mg/dL (70-99); Phosphorus, Blood 2.2 mg/dL (2.5-4.9); Potassium, Blood 3.5 mmol/L (3.5-5.5); Sodium, Blood 140 mmol/L (136-145); Total Protein, Blood 4.6 g/dL (6.4-8.2)
[2018-06-20 05:09] LABS: BAND PERCENT MAN 6 % (0-8); BASOPHILS PERCENT MAN 0 % (0-2); EOSINOPHILS PERCENT MAN 0 % (0-6); LYMPHOCYTES ABSOLUTE MAN 2.14 K/mm3 (0.84-5.20); LYMPHOCYTES PERCENT MAN 6 % (21-46); METAMYELOCYTE ABSOLUTE MAN 0.71 K/mm3 (0.00-0.00); METAMYELOCYTE PERCENT MAN 2 % (0-0); MONOCYTES ABSOLUTE MAN 2.14 K/mm3 (0.16-1.47); MONOCYTES PERCENT MAN 6 % (4-13); MYELOCYTE ABSOLUTE MAN 0.35 K/mm3 (0.00-0.00); MYELOCYTE PERCENT MAN 1 % (0-0); NEUTROPHILS ABSOLUTE MAN 30.37 K/mm3 (1.96-9.15); SEG NEUTROPHILS PERCENT MAN 79 % (41-73); TOTAL CELLS COUNTED 100
--- NOTE | 2018-06-20 06:08 | NUR ---
SHIFT SUMMARY NO ACUTE CHANGES DURING NOC. REMAINS INTUBATED- SPONTANEOUS VENTILATION PS 10, PEEP 10, FIO2 45%. SX COPIOUS AMOUNTS OF THICK KEITH SPUTUM VIA ETT. SEDATED WITH PROPOFOL BETWEEN 30-40MCG/KG/MIN DURING SHIFT- NOW INFUSING @ 40MCG/KG/MIN. PT OPENS EYES TO COMMANDS, NODS HEAD YES/NO, AND FOLLOWS SIMPLE COMMANDS. BILATERAL SOFT WRIST RESTRAINTS REMAIN IN PLACE. LEVOPHED INFUSED BETWEEN 9-12MCG/MIN TO KEEP MAP >65. NOW INFUSING @ 12MCG/MIN. PROTONIX GTT CONTINUES @ 8MG/HR PER ORDER. OG TO LIS WITH 450CC BROWN DRAINAGE. RECTAL TUBE IN PLACE WITH SCANT DRAINAGE. GRIMES PATENT AND DRAINING CLEAR YELLOW URINE TO GRAVITY. PAS TO BLE. WILL REPORT TO DAY SHIFT RN WHEN AVAILABLE.
--- NOTE | 2018-06-20 10:39 | NUR ---
0800 AM ASESSMENT NOTED. PT AT BEDSIDE. PT ON PS 10/8 AT 45% FIO2 AND TOLERATING WELL. PT MOVED TO PS 8/5, WILL FOLOW. VS NOTED AND PT IS ABLE TO RESPONED TO QUESTIONS APPROP AND NODS HEAD. PROPOFOL GTT IS AT 40MCG AND RR, TV, SATS ARE VERY ADIQUATE, SEE FLOW SHEET. IVF NOTED VIA PICC LINE AND R ARM PERIPHERIAL SITE. BOTTOM SKIN LOOKS GOOD AND SKIN CARE GIVEN. PT IS RESTRAINED AND ORDERS IN [place].
--- NOTE | 2018-06-20 15:08 | NUR ---
VHP STARTED AT 15ML WITH Q4 HOUR 30ML FLUSH. PT AGAIN IN TO VISIT AND SIT WITH PT. PT IS DIURESING WITH LASIX DOSE.
--- NOTE | 2018-06-20 16:15 | NUR ---
Initial Visit: Palliative consult to see patient. Pt is currently on vent. He appears comfortable at this time. No s/s of distress. , Megha, is present at bedside. Pt lives in [place]. He is usually oriented and alert. He has been active ambulating with 4ww at home. She shows me a picture of before his admit to the hospital. He has his 4ww on a hiking trail. She hopes he can return to this level of functioning. reports she is very encouraged to see his progress. Communication between doctors and nurses has been wonderful, per Megha. She feels up-to-date on all information. Denies needs at this time. She does report that pt has an advance directive AND a POLST form. She does not know where these documents are in her house, but she states she will look and try to bring them in for copies and scanning into [employer].
--- NOTE | 2018-06-20 17:29 | NUR ---
PT HAS GENERALLY HAD AN UNEVENTFUL DAY. PT LEVOPHED GTT ADJUSTED BUT VERY MODESTLY BETWEEN 10-13 RANGE AND CURRENTLY AT 11MCG. URINE OUT NOTED. PT REMAINS ON PS 10/8 AT 45% PS AND TOLERATING WELL WITH TV 400-600 ML AT TIMES. PT TF WAS STARTED AT 15ML AND STANDARD FLUSH OF 30ML/4 HOURS. MINIMAL RECTAL TUBE OUT AND WILL PLAN TO D/C POSSIBLE. PROTONIX 10, K-PHOS COMPLETING, AND PROPOFOL REMAINS [id number].
--- NOTE | 2018-06-20 19:00 | NUR ---
[place] of Care: Patient intubated/sedated, responds to verbal stimuli, following simple commands. Appears calm and comfortable, no s/s of pain/discomfort. Vent to PS 10, PEEP-8, FiO2-45%, O2-98-100%. Levophed, propofol, and Protonix gtt infusing to PICC, LIBRADO, see flow sheet. PICC patent and intact, clear serous drainage noted under dressing, plan to change dressing this shift. X2 peripheral IV's patent and intact. Chahal cath patent and intact, draining clear yellow urine. Rectal tube in place, appears to have only gas in tubing at this time, will D/C tube this shift if no output persist. Tube feed per OG tube, Vital High protein at goal rate of 15ml/hr, 30ml H2O flush q4hr. Will continue to monitor for pain, safety, comfort.
[2018-06-21 04:06] LABS: Hematocrit 23.9 % (37.0-53.0); Hemoglobin 7.9 g/dL (13.5-17.5); Mean Corpuscular HGB 29.7 pg (26.0-34.0); Mean Corpuscular HGB Conc 33.1 g/dL (31.5-36.5); Mean Corpuscular Volume 90 fL (80-100); Mean Platelet Volume 11.7 fL (9.1-12.4); NRBC ABSOLUTE 0.44 K/mm3 (0.00-0.02); NRBC Auto 1.7 /100 WBC (0.0-0.2); Platelet Count 156 K/mm3 (150-400); RDW Standard Deviation 55.7 fL (35.1-46.3); Red Blood Cell Count 2.66 M/mm3 (4.30-5.90); White Blood Cell Count 25.24 K/mm3 (4.00-11.30)
[2018-06-21 04:31] LABS: Albumin, Blood 2.4 g/dL (3.4-5.0); Anion Gap 7 mmol/L (6-16); Blood Urea Nitrogen 15 mg/dL (8-24); Bun/Creatinine Ratio 23.1 (12.0-20.0); CO2, Blood 34 mmol/L (21-32); Calcium, Blood 7.4 mg/dL (8.5-10.1); Chloride, Blood 102 mmol/L (98-108); Creatinine, Blood 0.65 mg/dL (0.60-1.20); Glomerular Filtration Rate >60 (60-); Glucose, Blood 149 mg/dL (70-99); Magnesium, Blood 1.9 mg/dL (1.6-2.4); Phosphorus, Blood 3.7 mg/dL (2.5-4.9); Potassium, Blood 2.8 mmol/L (3.5-5.5); Sodium, Blood 143 mmol/L (136-145)
[2018-06-21 04:44] LABS: BAND PERCENT MAN 2 % (0-8); BASOPHILS PERCENT MAN 0 % (0-2); EOSINOPHILS PERCENT MAN 0 % (0-6); LYMPHOCYTES ABSOLUTE MAN 1.26 K/mm3 (0.84-5.20); LYMPHOCYTES PERCENT MAN 5 % (21-46); METAMYELOCYTE ABSOLUTE MAN 0.25 K/mm3 (0.00-0.00); METAMYELOCYTE PERCENT MAN 1 % (0-0); MONOCYTES PERCENT MAN 2 % (4-13); MYELOCYTE ABSOLUTE MAN 0.75 K/mm3 (0.00-0.00); MYELOCYTE PERCENT MAN 3 % (0-0); NEUTROPHILS ABSOLUTE MAN 22.46 K/mm3 (1.96-9.15); SEG NEUTROPHILS PERCENT MAN 87 % (41-73); TOTAL CELLS COUNTED 100
--- NOTE | 2018-06-21 07:25 | NUR ---
Shift Summary: Patient remained on pressure support of 10, PEEP-8, FiO2 decreased from 45 to 35%, O2-97-98%, tolerated these settings without difficulty. Continues to rouse to verbal stimuli, following simple commands, appears calm and comfortable at rest. Levophed titrated between 9-11mcg/min throughout shift, BP/HR stable. Tube feed continued at goal rate of 15ml/hr, 0ml residual throughout shift. PICC line remains patent and intact, infusing medications without difficulty. Chahal cath patent and intact, draining light yellow clear urine. Report given to day shift RN Margarita and Zay.
--- NOTE | 2018-06-21 07:45 | NUR ---
ASSUMED CARE PT REMAINS ON VENT PS10/8, FIO2 35%. CURRENT GTTPS: PROPOFOL 40MCG/KG/MIN, LEVOPHED 10MCG/MIN, NS TKO, AND KCL 10ME/HR. PT IS FULLY SEDATED AND MAKING NO MOVEMENT. PT IS RECIEVING TUBE FEEDING AT 15ML/HR.
--- NOTE | 2018-06-21 07:52 | NUR ---
SEDATION VACATION PROPFOL PUT ON STANDBY AT 0715, PT RESPONDED TO VERBAL COMMANDS SLOWLY, SQUEEZED HANDS, WIGGLED TOES SLIGHTLY. PT OPENED EYES, BUT DID NOT MAKE EYE CONTACT, OR TRACK. PT SBP WENT UP TO 180+ WITH SEDATION VACATION AND ORAL CARE. PROPOFOL TURNED BACK ON AROUND 0725.
[2018-06-21 10:41] LABS: Vancomycin, Trough 15.6 ug/mL (5.0-10.0)
--- NOTE | 2018-06-21 12:15 | NUR ---
DR AUGUSTIN IN TO ASSESS PT. UPDATED WITH PT'S CURRENT STATUS. PT'S ([place]) AT THE BEDSIDE AND UPDATED WITH PLAN OF CARE. SEDATION VACATION STARTED W/ INTENTION OF EXTUBATING IF PT DOES WELL. 1250-PT TOLERATING SEDATION VACATION FAIRLY WELL. BP'S STARTING TO INCREASE AND SLOWLY WEANING DOWN LEVOPHED. TIDAL VOLUMES 350-500+, RESPIRATORY RATE STARTING TO INCREASE 30-38 (R/T ANXIETY). DR AUGUSTIN BACK IN ROOM AND REC'D PT UPDATE. CALLED RT ELLIOTT AND WILL EXTUBATE WHEN SHE ARRIVES. WILL USE BIPAP PRN. WILL ATTEMPT NASAL CANNULA.
--- NOTE | 2018-06-21 13:12 | NUR ---
EXTUBATION PT WAS EXTUBATED AND PUT ON NC 4L AT 1257. PT PREFERS TO BREATHE THROUGH MOUTH AND WAS SATTING 88-90, PT THAN PLACED ON BIPAP 10/6, FIO2 45% AT 1310. RESTRAINTS WERE REMOVED AT 1257.
--- NOTE | 2018-06-21 13:28 | NUR ---
PT UPDATE: PT TOLERATING BIPAP WELL. 02 SATS 100% ON FI02 @ 45%. PT DECREASED TO FI02-35%.
--- NOTE | 2018-06-21 14:50 | NUR ---
PT STATED "NO LIFE SUPPORT" WHEN ON BIPAP. PT WAS EDUCATED THAT BIPAP IS NOT LIFE SUPPORT MEASURES, AND THEN HE SAID "CALL CHULA AND TELL HER TO CALL IF OFF". NOT EXACTLY SURE WHAT HE IS TALKING ABOUT. HE CONTINUED BY SAYING "CALL CHULA I WANT TO TALK TO HER". GOING TO CALL CHULA AND HAVE HER COME IN AND TALK TO PT.
--- NOTE | 2018-06-21 17:55 | NUR ---
SHIFT SUMMARY PT CURRENTLY ON NO SEDATION AND WAS EXTUBATED AT 1257. PT IS ALERT, ORIENTED TO SELF, , AND LOCATION. PT IS STILL SLIGHTLY CONFUSED. PT IS ON THE OXYMIZER AT 9L. RESTRAINTS WERE REMOVED AT 1257. CURRENTLY RECIEVING LEVOPHED AT 4MCG/MIN. PERIPHERAL IV'S WERE REMOVED TODAY, AND PICC LINE IS STILL IN PLACE. PT IS STILL WEEPING SLIGHTLY.
--- NOTE | 2018-06-21 22:11 | NUR ---
ASSUMING CARE RECEIVED PT REPORT FROM VICTOR MANUEL COATES AND VICTOR MANUEL MARLEY. PT IS ON 9 L O2 VIA OXYMIZER. PT SPO2 IS MAINTAINING IN THE 90'S. PT LUNG SOUNDS ARE CLEAR THOUGH DIMINISHED IN THE BASES. PT HAS A PRODUCTIVE COUGH WITH THICK BROWN SPUTUM. PT IS RECEIVING LEVOPHED AT 4MCG/MIN AT THE TIME CARE ASSUMED. LEVOPHED TITRATED DOWN TO 3.5MCG/MIN SHORTLY AFTER CARE ASSUMED. PT BP IS MAINTAINING IN THE 100 SYSTOLIC RANGE. PT HR IS IN THE 70-80 RANGE, THOUGH PT HAS BEEN OBSERVED TO BE IN THE 110-120 RANGE OCCASIONALLY FOR APPROX 1 MIN AT A TIME. PT HAS ALSO BEEN OBSERVED TO HAVE FREQUENT PVC'S. PT HAS A GRIMES CATH IN PLACE, CURRENTLY PATENT AND DRAINING CLEAR YELLOW URINE. PT HAS RECTAL TUBE IN PLACE, CURRENTLY PATENT AND DRAINING DARK LIQUIDY STOOL. ASSUMED CARE OF PT AT THE TIME OF SHIFT REPORT. WILL CONTINUE TO MONITOR PT.
[2018-06-22 03:43] LABS: BASOPHILS ABSOLUTE AUTO 0.01 K/mm3 (0.00-0.23); BASOPHILS PERCENT AUTO 0 % (0-2); EOSINOPHILS ABSOLUTE AUTO 0.01 K/mm3 (0.00-0.68); EOSINOPHILS PERCENT AUTO 0 % (0-6); Hematocrit 24.3 % (37.0-53.0); Hemoglobin 7.8 g/dL (13.5-17.5); IMMATURE GRAN ABSOLUTE AUTO 0.32 K/mm3 (0.00-0.10); IMMATURE GRAN PERCENT AUTO 2 % (0-1); LYMPHOCYTES ABSOLUTE AUTO 0.55 K/mm3 (0.84-5.20); LYMPHOCYTES PERCENT AUTO 3 % (21-46); MONOCYTES ABSOLUTE AUTO 1.28 K/mm3 (0.16-1.47); MONOCYTES PERCENT AUTO 7 % (4-13); Mean Corpuscular HGB 29.7 pg (26.0-34.0); Mean Corpuscular HGB Conc 32.1 g/dL (31.5-36.5); Mean Corpuscular Volume 92 fL (80-100); Mean Platelet Volume 11.5 fL (9.1-12.4); NEUTROPHILS ABSOLUTE AUTO 16.35 K/mm3 (1.96-9.15); NEUTROPHILS PERCENT AUTO 88 % (41-73); NRBC ABSOLUTE 0.16 K/mm3 (0.00-0.02); NRBC Auto 0.9 /100 WBC (0.0-0.2); Platelet Count 150 K/mm3 (150-400); RDW Coefficient Variation 18.9 % (11.7-14.2); RDW Standard Deviation 57.2 fL (35.1-46.3); Red Blood Cell Count 2.63 M/mm3 (4.30-5.90); White Blood Cell Count 18.52 K/mm3 (4.00-11.30)
[2018-06-22 03:59] LABS: Anion Gap 8 mmol/L (6-16); Blood Urea Nitrogen 20 mg/dL (8-24); Bun/Creatinine Ratio 32.8 (12.0-20.0); CO2, Blood 33 mmol/L (21-32); Calcium, Blood 7.6 mg/dL (8.5-10.1); Chloride, Blood 104 mmol/L (98-108); Creatinine, Blood 0.61 mg/dL (0.60-1.20); Glomerular Filtration Rate >60 (60-); Glucose, Blood 118 mg/dL (70-99); Magnesium, Blood 1.9 mg/dL (1.6-2.4); Potassium, Blood 3.1 mmol/L (3.5-5.5); Sodium, Blood 145 mmol/L (136-145)
--- NOTE | 2018-06-22 06:18 | NUR ---
SHIFT SUMMARY NOTE PT HAS REMAINED AWAKE THROUGH MUCH OF THE NIGHT. PT REMAINS ON OXYMIZER AT 7L. PT O2 HAS BEEN TITRATED UP AND DOWN THROUGHOUT THE NIGHT TO MAINTAIN SPO2 GREATER THAN 90. PT HAS DENIED SOB THROUGH THE NIGHT. PT REMAINS ON LEVOPHED AT 2MCG/MIN. PT BP HAS MAINTAINED A MAP GREATER THAN 65 THROUGHOUT THE NIGHT. SYSTOLIC BP HAS REMAINED IN THE 90-110 RANGE THROUGH THE NIGHT. PT CONTINUES TO HAVE GRIMES CATH IN PLACE. PT HAD A LARGE AMOUNT OF URINE OUTPUT OVERNIGHT WITH APPROX 3000ML URINE OUTPUT. PT HAD APPROX 100ML OF DARK STOOL OUTPUT. PT CONTINUES TO RECEIVE LEVOPHED AT PREVIOUSLY STATED RATE AND NS AT TKO. PT HR IS MAINTAINING INT HE 70-80 RANGE AT THIS TIME. PT CONTINUES TO HAVE FREQUENT PVC'S WILL REPORT OFF TO ONCOMING DAY SHIFT NURSE.
--- NOTE | 2018-06-22 07:48 | NUR ---
ASSUMED CARE RECEIVED REPORRT FROM RIKI. PT WAS ON LEVOPHED AT 2.5MCG/MIN AND NS TKO. PT IS ON THE OXYMIZER AT 9L AND SAT'ING 95+. PT IS AWAKE, ALERT AND ORIENTED X 3.
--- NOTE | 2018-06-22 10:30 | NUR ---
DR. AUGUSTIN IN ROOM WITH PATIENT, WANTS TO DISCONTINUE LASIX, HOWEVER, CONTINUE WITH SOLU-CORTEF. PT IS TO REMAIN IN ICU, TILL HE BECOMES STABLE WITHOUT NEEDING LEVOPHED.
--- NOTE | 2018-06-22 19:30 | NUR ---
SHIFT SUMMARY PT IS ALERT AND ORIENTED X4; SPEAKING MORE CLEARLY AND ABLE TO COMMUNICATE WANTS AND NEEDS. PT IS UNDERSTANDING WHY HE IS STILL IN ICU. PT IS ON AIRVO, 8L AND SAT'ING MID 90'S; WHEN HE SLEEPS HE NEEDS IT IN HIS MOUTH TO MAINTAIN THOSE SAT'S. PT IS IN NSR MAJORITY OF DAY, BUT HAS HAD EPISODES OF BIGEMINY THAT HAVE LASTED <10MINS. PT IS DIURESING WELL, ~2200 UOP, SWELLING HAS GONE DOWN SIGNIFICANTLY IN HANDS, AND SOMEWHAT IN FEET, STILL SWELLING PRESENT IN FEET. PT'S RECTAL TUBE WAS REMOVED, AND A BATH WAS COMPLETED TODAY. CHULA, THE , WAS AT BEDSIDE MAJORITY OF DAY AND IS UPDATED ON PLAN OF CARE. PT IS ON PUREE DIET, AND TOLERATING FOOD, AND WATER WELL.
--- NOTE | 2018-06-22 20:27 | NUR ---
Review of paln of care with nursing. will review with family plan and needs
--- NOTE | 2018-06-22 20:59 | NUR ---
PM NOTE. ASSUMED CARE OF PT APROX 1900, PT IS A&O, CURRENTLY UP IN THE CHAIR IN HIS ROOM. PT WAS EXTUBATED ON 06/21 APROX 1200. PT IS ON 6L HI FLOW AT 97%. PT IS ON LEVOPHED GTT AT 2MCG/HR, CURRENTLY HIS BP 74/48, LEVOPHED WAS INCREASED TO 5MCG/HR. WILL MONITOR AND TITRATE. MONITORS INTACT, NSR W/FREQUENT PVCS, PT'S BP ABOVE, PT HAS 2+ PITTING EDEMA TO HIS LLE, BILATERAL ARMS ARE 3+ AND WHEEPING. PT'S L/S SLIGHTLY COARSE T/O AND DIM IN THE BASES. BT PRESENT AND HYPERACTIVE, ABD IS SOFT AND NONTENDER TO PALP. CALL LIGHT IN REACH, WILL CONTINUE TO MONITOR.
--- NOTE | 2018-06-22 23:46 | NUR ---
PT UPDATE... LEVOPHED GTT WAS STOPPED AT 2235, PT'S BP HAS TOLERATED THIS WELL. PT'S CURRENT BP IS 119/67. ORAL MIDODRINE WAS STARTED PER ORDERS. WILL CONTINUE TO MONITOR.
--- NOTE | 2018-06-23 02:54 | NUR ---
PT UPDATE... PT WOKE TO A COUGHING FIT, PT HAD COUGHED UP MODERATE AMOUNT OF DARK BROWN/FABIOLA, BRIGHT RED BLOOD TINGED SPUTUM. PT'S O2 SATS DROPPED TO THE LOW 80'S, HIS O2 NEEDED TO BE TITRATED FROM 4L NC TO 7L NC FOR <10 MINS FOR HIM TO RECOVER. PT RECOVERED AND WAS TITRATED BACK DOWN TO 4L NC WITH O2 SATS AT 93%. WILL CONTINUE TO MONITOR.
[2018-06-23 03:23] LABS: BASOPHILS ABSOLUTE AUTO 0.02 K/mm3 (0.00-0.23); BASOPHILS PERCENT AUTO 0 % (0-2); EOSINOPHILS ABSOLUTE AUTO 0.02 K/mm3 (0.00-0.68); EOSINOPHILS PERCENT AUTO 0 % (0-6); Hematocrit 24.6 % (37.0-53.0); Hemoglobin 7.6 g/dL (13.5-17.5); IMMATURE GRAN ABSOLUTE AUTO 0.15 K/mm3 (0.00-0.10); IMMATURE GRAN PERCENT AUTO 1 % (0-1); LYMPHOCYTES ABSOLUTE AUTO 0.52 K/mm3 (0.84-5.20); LYMPHOCYTES PERCENT AUTO 4 % (21-46); MONOCYTES ABSOLUTE AUTO 1.27 K/mm3 (0.16-1.47); MONOCYTES PERCENT AUTO 9 % (4-13); Mean Corpuscular HGB 29.1 pg (26.0-34.0); Mean Corpuscular HGB Conc 30.9 g/dL (31.5-36.5); Mean Corpuscular Volume 94 fL (80-100); Mean Platelet Volume 11.6 fL (9.1-12.4); NEUTROPHILS ABSOLUTE AUTO 12.05 K/mm3 (1.96-9.15); NEUTROPHILS PERCENT AUTO 86 % (41-73); NRBC ABSOLUTE 0.06 K/mm3 (0.00-0.02); NRBC Auto 0.4 /100 WBC (0.0-0.2); Platelet Count 158 K/mm3 (150-400); RDW Coefficient Variation 18.9 % (11.7-14.2); RDW Standard Deviation 59.4 fL (35.1-46.3); Red Blood Cell Count 2.61 M/mm3 (4.30-5.90); White Blood Cell Count 14.03 K/mm3 (4.00-11.30)
[2018-06-23 03:38] LABS: Anion Gap 8 mmol/L (6-16); Blood Urea Nitrogen 20 mg/dL (8-24); Bun/Creatinine Ratio 40.2 (12.0-20.0); CO2, Blood 30 mmol/L (21-32); Calcium, Blood 7.4 mg/dL (8.5-10.1); Chloride, Blood 110 mmol/L (98-108); Glomerular Filtration Rate >60 (60-); Glucose, Blood 128 mg/dL (70-99); Magnesium, Blood 1.9 mg/dL (1.6-2.4); Phosphorus, Blood 2.6 mg/dL (2.5-4.9); Potassium, Blood 3.3 mmol/L (3.5-5.5); Sodium, Blood 148 mmol/L (136-145)
--- NOTE | 2018-06-23 06:39 | NUR ---
SHIFT SUMMARY. PT HAS NOT SLEPT MUCH THIS SHIFT, APROX 3 HOURS BROKEN UP. PT'S BP HAS REMAINED STABLE OFF OF THE LEVOPHED, HIS MAP HAS REMAINED ABOVE 65. PT HAS CONTINUED TO HAVE BLACK TARRY STOOLS BUT HAS BEEN USING THE BED HARE. PT'S BILATERAL UPPER ARMS ARE EDEMATOUS AND CONTINUE TO WEEP. THERE IS AN AREA TO THE PT'S LEFT CHEW THAT IS WARM AND RED, THIS AREA HAS BEEN MARKED, THE REDNESS HAS NOT INCREASED OR PASSED THE MARKED AREA ALL THIS SHIFT BUT IT HAS NOT DECREASED EITHER. THIS AREA IS STILL WARM TO TOUCH. PT DENIES ANY PAIN TO THIS AREA, THERE IS A SMALL WOUND TO THE PT'S LEFT CALF, THIS WAS CLEANED AND NEW DRESSING PLACED, THIS WOUND IS IN THE RED/WARM AREA. PT HAS HAD SEVERAL RUNS OF BIGEMINY THIS SHIFT, BUT HAS RETURNED TO NSR. PT DENIES ANY CHEST PAIN/PRESSURE, N/V OR INCREASED SOB. PT IS CURRENTLY ON 5L NC, PT WAS TITRATED DOWN TO 4 L NC FOR SEVERAL HOURS BUT STARTED COUGHING UP DARK BROWN/FABIOLA BLOOD TINGED SPUTUM AND REQUIRED 5L NC SINCE THEN. CALL LIGHT IN REACH, BED IS LOCKED AND LOW WILL CONTINUE TO MONINTOR UNTIL REPORT IS GIVEN TO ONCOMING RN.
[2018-06-23 11:04] LABS: Percent Saturation 11.8 % (20.0-50.0)
--- NOTE | 2018-06-23 13:21 | NUR ---
NOTE PT ALERT AND ORIENTED. ST WITH PVC. PT HAD A SELF LMITED RUN OF VT. DR AUGUSTIN ASKED FOR AN EKG OVER CONCERNS ABOUT PROLONGED QTC AFTER STARTING MICAFUNGIN YESTERDAY. EKG DONE AFTER REURNING PT BACK TO BED AFTER LUNCH. NO CHANGE IN QTC. CALLED TO DR AUGUSTIN. SHE GAVE A VERBAL GO AHEAD TO GIVE THE NEXT DOSE. PT UP TO RECLINER USING CEILING HOIST. PT TOLERATED IT WELL. HE THOUGHT IT WAS FUN. THERE TO KEEP HIM COMPANY. PT SAT UP FOR ABOUT 2 HOURS. PT FELL ASLEEP ALMOST IMMEDIATELY UPON RETURN TO BED. PT ABLE TO FEED HIMSELF LUNCH WITH BUILT UP HANDLED SILVERWARE. HE IS VERY PROUD OF HIMSELF. PT AND ARE STARTING TO MAKE PLANS FOR GOING HOME. UNSURE YET WHETHER PT WILL BENEFIT FROM A SHORT VISIT IN REHAB YET. CONTINUE POT.
--- NOTE | 2018-06-23 13:52 | NUR ---
Schedule follow upw tih on AD and polst and plan of care
[2018-06-23 15:11] LABS: Phosphorus, Blood 2.6 mg/dL (2.5-4.9); Potassium, Blood 3.8 mmol/L (3.5-5.5)
--- NOTE | 2018-06-23 18:04 | NUR ---
EVENING NOTE PT ALERT AND ORIENTED. SR. VSS. PT EATING WELL. HE IS ABLE TO FEED HIMSELF. HE STILL NEEDS HELP WITH LIQUIDS BY SPOON. B-LE DOPPLER COMPLETED. RESULTS GIVEN TO DR AUGUSTIN. THIS NURSE HAS SPOKEN WITH PT . BLOOD COMPLETED. PT HAS TOLERATED WELL. NO S/S OF TRANSFUSION REACTION NOTED. CONTINUE POT.
--- NOTE | 2018-06-23 21:39 | NUR ---
PM NOTE. ASSUMED CARE OF PT APROX 1900, PT IS A&O. PT'S WEAKNESS HAS IMPROVED FROM PREVIOUS NOC SHIFT, PT IS ABLE TO FEED HIMSELF. PT'S BP HAS BEEN STABLE PER REPORT AND PT HAS NOT REQUIRED LEVOPHED AT THIS TIME. PT RECEIVED 1 UNIT OF PRBCS ON DAY SHIFT. UPON ASSESSMENT THIS RN NOTED THAT THE BOTTOM OF THE PT'S PICC LINE DRESSING HAD COME OFF DUE TO THE WEEPING OF THE PT'S ARMS FROM BILATERAL ARM EDEMA. DRESSING WAS CHANGED, IT WAS NOTED AT THIS TIME THAT THE PLACEMENT OF THE PICC LINE WAS AT 12 CM AND NOT 9 CM PER DOCUMENTATION, PICC RN ASSESSED THE PICC LINE, RECOMENDATIONS RECEIVED. CHARGE NURSE UPDATED. MONITORS INTACT, PT IS IN NSR W/FREQUENT PVCS. PT'S BP 115/58. PT HAS WEEPING EDEMA TO HIS BILATERAL ARMS, ARMS ARE ELEVATED ON PILLOWS. PT'S LEFT LEG HAS 1+ EDEMA, THIS IS IMPROVED FROM PREVIOUS NOC SHIFT. PT'S SCROTAL EDEMA HAS DECREASED FROM PRVIOUS SHIFT. L/S CLEAR IN THE UPPER LOBES, SLIGHT COARSENESS HEARD IN THE LOWER LOBES, PT IS ON 4L NC WITH O2 SATS 97%. BT PRESENT AND HYPERACTIVE, ABD IS SOFT AND NONTENDER TO PALP. CALL LIGHT IN REACH, BED IS LOCKED AND LOW WILL CONTINUE TO MONITOR.
[2018-06-24 03:39] LABS: BASOPHILS ABSOLUTE AUTO 0.01 K/mm3 (0.00-0.23); BASOPHILS PERCENT AUTO 0 % (0-2); EOSINOPHILS ABSOLUTE AUTO 0.02 K/mm3 (0.00-0.68); EOSINOPHILS PERCENT AUTO 0 % (0-6); Hematocrit 27.9 % (37.0-53.0); Hemoglobin 8.9 g/dL (13.5-17.5); IMMATURE GRAN PERCENT AUTO 1 % (0-1); LYMPHOCYTES ABSOLUTE AUTO 0.53 K/mm3 (0.84-5.20); LYMPHOCYTES PERCENT AUTO 5 % (21-46); MONOCYTES ABSOLUTE AUTO 1.17 K/mm3 (0.16-1.47); MONOCYTES PERCENT AUTO 11 % (4-13); Mean Corpuscular HGB 30.2 pg (26.0-34.0); Mean Corpuscular HGB Conc 31.9 g/dL (31.5-36.5); Mean Corpuscular Volume 95 fL (80-100); Mean Platelet Volume 11.9 fL (9.1-12.4); NEUTROPHILS ABSOLUTE AUTO 8.43 K/mm3 (1.96-9.15); NEUTROPHILS PERCENT AUTO 82 % (41-73); NRBC ABSOLUTE 0.04 K/mm3 (0.00-0.02); NRBC Auto 0.4 /100 WBC (0.0-0.2); Platelet Count 170 K/mm3 (150-400); RDW Coefficient Variation 18.6 % (11.7-14.2); RDW Standard Deviation 59.7 fL (35.1-46.3); Red Blood Cell Count 2.95 M/mm3 (4.30-5.90); White Blood Cell Count 10.26 K/mm3 (4.00-11.30)
[2018-06-24 03:58] LABS: Alanine Aminotransfer (ALT/SGP 53 U/L (12-78); Albumin, Blood 2.3 g/dL (3.4-5.0); Albumin/Globulin Ratio 0.8 (0.8-1.8); Alk Phos 48 U/L (50-136); Anion Gap 5 mmol/L (6-16); Aspartate Aminotrans (AST/SGOT 33 U/L (12-37); Blood Urea Nitrogen 20 mg/dL (8-24); Bun/Creatinine Ratio 34.1 (12.0-20.0); CO2, Blood 29 mmol/L (21-32); Calcium, Blood 7.7 mg/dL (8.5-10.1); Chloride, Blood 108 mmol/L (98-108); Creatinine, Blood 0.59 mg/dL (0.60-1.20); Glomerular Filtration Rate >60 (60-); Glucose, Blood 125 mg/dL (70-99); Potassium, Blood 3.7 mmol/L (3.5-5.5); Sodium, Blood 142 mmol/L (136-145); Total Protein, Blood 5.3 g/dL (6.4-8.2)
[2018-06-24 04:51] LABS: PCO2 Arterial 31.6 mmHg (35-45); PO2 Arterial 48.5 mmHg (80-100)
--- NOTE | 2018-06-24 05:18 | NUR ---
PT UPDATE... ABG WAS DRAWN PER ORDERS, PO2 WAS CRITICALLY LOW AT 48.5. THIS RN SPOKE WITH PLUMONOLOGIST AND RT ON THE PT'S CASE, NO NEW ORDERS WERE OBTAINED. PT HAS NOT BEEN IN DISTRESS DURING THIS SHIFT. PT'S O2 HAS BEEN TITRATED FROM 4L NC TO 2L NC AT THE TIME OF THE ABG. WILL CONTINUE TO MONITOR.
--- NOTE | 2018-06-24 06:30 | NUR ---
SHIFT SUMMARY. NO ACUTE CHANGES NOTED THIS SHIFT. PT'S VS HAVE BEEN STABLE. PT'S O2 HAS BEEN TITRATED FROM 4L NC TO 2L NC AND BACK TO 3L NC DEPENDING ON THE PT'S O2 SATS. PT IS VERY ANXIOUS TO "GO HOME WITH OUT ANY OXYGEN." THIS PT WAS EDUCATED ON CHRONIC DISEASE PROCESS AND PREPARED FOR THE POSSIBILITY THAT HE MIGHT NEED O2 AT HOME. PT CONTINUES TO COUGH UP DARK BROWN/FABIOLA/BLOOD TINGED SPUTUM. THE SWELLING IN THE PT'S LEFT LEG HAS GONE FROM 1+ TO 2+ EDEMA, PT'S LASIX WERE DECREASED RECENTLY THIS COULD BE DUE TO THAT, HOWEVER THE PT HAS DVTS IN THAT LEFT LEG. GRIMES IS PATENT AND DRAINING CLEAR YELLOW URINE TO GRAVITY.
--- NOTE | 2018-06-24 16:21 | NUR ---
REPORT GIVEN TO VICTOR MANUEL DE SANTIAGO, WHOM WILL ASSUME CARE OF PT WHEN TRANSFERRED TO PCU ROOM 4.
--- NOTE | 2018-06-24 16:22 | NUR ---
NURSING SUMMARY UPDATE PT SITTING IN BEDSIDE CHAIR X 5 HOURS THUS FAR TODAY. WORKED WITH OCCUPATIONAL THERAPY AND PHYSICAL THERAPY, WAS ABLE TO STAND UP TWICE THIS AFTERNOON WITH PHYSICAL THERAPY BUT NOT ABLE TO TAKE STEPS. PT WEAK WITH STANDING. USING CEILING LIFT TO TRANSFER PT BETWEEN BED AND CHAIR. DISCONTINUED GRIMES AT 1600, AWAITING FIRST VOID, PT HAS A URINAL WITHIN REACH AND INSTRUCTIONS PROVIDED ON HOW TO USE. CALL LIGHT WITHIN REACH, INSTRUCTED TO CALL WHEN THE URINAL NEEDS TO BE EMPTIED.
--- NOTE | 2018-06-24 17:55 | NUR ---
PT TRANSFERRED TO PCU ROOM 4 VIA BEDSIDE CHAIR FOR PT COMFORT.
--- NOTE | 2018-06-24 18:21 | NUR ---
REPORT RECEIVED FROM SAMINA ROUGHER FOR CEMENT. NO ACUTE ISSUES NOTED AT THIS TIME. PATIENT IS IN GOOD SPIRITS AND HAPPY TO BE IN PCU. NO CURRENT COMPLAINTS OF PAIN OR DISCOMFORT NOTED. PATIENT IS SITTING UP IN THE CHAIR. O2 @ 2LITERS NASAL CANULA SATTING AT 94%. WILL CONTINUE TO MONITOR FOR CHANGES.
[2018-06-25 05:00] LABS: BASOPHILS ABSOLUTE AUTO 0.01 K/mm3 (0.00-0.23); BASOPHILS PERCENT AUTO 0 % (0-2); EOSINOPHILS PERCENT AUTO 1 % (0-6); Hematocrit 30.5 % (37.0-53.0); Hemoglobin 9.4 g/dL (13.5-17.5); IMMATURE GRAN ABSOLUTE AUTO 0.09 K/mm3 (0.00-0.10); IMMATURE GRAN PERCENT AUTO 1 % (0-1); LYMPHOCYTES PERCENT AUTO 11 % (21-46); MONOCYTES ABSOLUTE AUTO 1.44 K/mm3 (0.16-1.47); MONOCYTES PERCENT AUTO 14 % (4-13); Mean Corpuscular HGB Conc 30.8 g/dL (31.5-36.5); Mean Corpuscular Volume 94 fL (80-100); Mean Platelet Volume 11.9 fL (9.1-12.4); NEUTROPHILS ABSOLUTE AUTO 7.37 K/mm3 (1.96-9.15); NEUTROPHILS PERCENT AUTO 73 % (41-73); NRBC ABSOLUTE 0.02 K/mm3 (0.00-0.02); NRBC Auto 0.2 /100 WBC (0.0-0.2); Platelet Count 187 K/mm3 (150-400); RDW Coefficient Variation 18.4 % (11.7-14.2); RDW Standard Deviation 57.9 fL (35.1-46.3); Red Blood Cell Count 3.24 M/mm3 (4.30-5.90); White Blood Cell Count 10.11 K/mm3 (4.00-11.30)
[2018-06-25 05:25] LABS: Alanine Aminotransfer (ALT/SGP 53 U/L (12-78); Albumin, Blood 2.5 g/dL (3.4-5.0); Albumin/Globulin Ratio 0.8 (0.8-1.8); Alk Phos 54 U/L (50-136); Anion Gap 9 mmol/L (6-16); Aspartate Aminotrans (AST/SGOT 33 U/L (12-37); Bilirubin, Total 0.9 mg/dL (0.1-1.0); Blood Urea Nitrogen 19 mg/dL (8-24); Bun/Creatinine Ratio 28.6 (12.0-20.0); CO2, Blood 23 mmol/L (21-32); Calcium, Blood 8.2 mg/dL (8.5-10.1); Chloride, Blood 106 mmol/L (98-108); Creatinine, Blood 0.66 mg/dL (0.60-1.20); Globulin, Blood 3.2 g/dL (2.2-4.0); Glomerular Filtration Rate >60 (60-); Glucose, Blood 79 mg/dL (70-99); Potassium, Blood 3.7 mmol/L (3.5-5.5); Sodium, Blood 138 mmol/L (136-145); Total Protein, Blood 5.7 g/dL (6.4-8.2)
--- NOTE | 2018-06-25 05:43 | NUR ---
SHIFT SUMMARY PT HAS REMAINED AOX4 THROUGHOUT SHIFT. VSS. PLEASANT AND COOPERATIVE WITH CARE. PT HAS REMAINED VERY WEAK AND UNABLE TO STAND TO TRANSFER THROUGHOUT SHIFT, THEREFORE CEILING LIFT HAS BEEN UTILIZED FOR TRANSFERS FROM BED TO CHAIR. PT AGREEABLE TO REST IN BED FOR A WHILE IN ORDER TO SHIFT POSITIONS FROM BACKSIDE, THOUGH CHAIR IS PREFERRED. PT EDUCATED ON PRESSURE ULCER PREVENTION AND IMPORTANCE OF MOVEMENT. O2 SATS HAVE REMAINED >90% ON 1L VIA NASAL CANNULA WHILE AT REST AND 2L WITH ACTIVITY- PT REPORTS MILD DYSPNEA ON EXERTION, BUT SIGNIFICANT IMPROVEMENT FROM THE LAST COUPLE OF DAYS. PRODUCTIVE COUGH NOTED OF THICK, YELLOW SPUTUM. CONTINUES TO USE URINAL IN BED INDEPENDENTLY. CALLS APPROPRIATELY FOR CARE. NO OTHER CHANGES NOTED FROM INITIAL ASSESSMENT. WILL CONTINUE TO MONITOR AND REPORT TO ONCOMING SHIFT RN. PT CURRENTLY UP IN CHAIR AT BEDSIDE WITH FEET ELEVATED ON STOOL. CALL LIGHT IN REACH.
--- NOTE | 2018-06-25 08:20 | NUR ---
AM ASSESSMENT: Pt sitting up in chair at this time. States that he is getting really tired and would like to take a nap. LS clear. HR reg. BT positive. Pulses palp. Pt states that he is having 2/10 pain in his LLE and some soreness on his buttock/coccyx. Pt on 2l NC and Biox was 97%. Decreased to 1L per NC by RT. BIox down to 93%. Will leave at 1L and monitor. Pt given medications per orders then back to bed using lift. Pt repositioned to L side in bed. Appears very comfortable and he dozed off. Call light in reach and will monitor.
--- NOTE | 2018-06-25 13:21 | NUR ---
update: Pt back up to chair via lift at around 1100. He tolerated well the worked with PT. Pt needed to use the BSC and was a heavy 2 person to stand and trade chairs. Had a large BM. Now back in chair. Pt took O2 off to clean out nose and decrased down to 91% only. Left Pt off of oxygen at that time. Call light in reach and will monitor.
--- NOTE | 2018-06-25 16:00 | NUR ---
TRANSFER: Report called to Uche RN and Pt. transfered to room 325. VSS. Pt still on RA and biox >90%. Tolerating well. Pt moved via bed. Pt and Pt spouse very concerned about leaving PCU stating "but PCU is our home!". Nursing supporvisor and PCU clinical coordinator in and talking to Pt and his spouse Megha and reassured them that he would be well taken care of. Stable at time of transfer
--- NOTE | 2018-06-25 16:05 | NUR ---
PATIENT TRANSFER THE PATIENT WAS TRANSFERRED TO THE MEDICAL FLOOR, ROOM # 325 AT 1535, [place] [facility] THE PATIENT ARRIVED VIA BED AND WAS TRANSFERRED TO THE MEDICAL FLOOR BED. THE PATIENT ARRIVED AFTER REPORT WAS CALLED TO THE FLOOR BY VICTOR MANUEL MCKEE. THE PATIENT IS A&O, ON RA AND VITALS WNL.
--- NOTE | 2018-06-26 04:54 | NUR ---
Shift summary. Pt very weak. Pt requires a lift to get from chair to bed. pt unable to help very much at all. Labs drawn from power picc at 0500. Picc lines flushing well x 3. Mepilex changed to red area on sacrum. Pt had difficult time trying to sleep. pt up to side of bedside x 3. pt incontinent of urine x 3 during the night. Pt unable to use the sit to stand for transfers.
[2018-06-26 05:19] LABS: BASOPHILS ABSOLUTE AUTO 0.01 K/mm3 (0.00-0.23); BASOPHILS PERCENT AUTO 0 % (0-2); EOSINOPHILS ABSOLUTE AUTO 0.07 K/mm3 (0.00-0.68); EOSINOPHILS PERCENT AUTO 1 % (0-6); Hematocrit 28.7 % (37.0-53.0); Hemoglobin 8.9 g/dL (13.5-17.5); IMMATURE GRAN ABSOLUTE AUTO 0.06 K/mm3 (0.00-0.10); IMMATURE GRAN PERCENT AUTO 1 % (0-1); LYMPHOCYTES ABSOLUTE AUTO 0.71 K/mm3 (0.84-5.20); LYMPHOCYTES PERCENT AUTO 8 % (21-46); MONOCYTES ABSOLUTE AUTO 1.05 K/mm3 (0.16-1.47); MONOCYTES PERCENT AUTO 12 % (4-13); Mean Corpuscular Volume 94 fL (80-100); Mean Platelet Volume 11.7 fL (9.1-12.4); NEUTROPHILS ABSOLUTE AUTO 7.16 K/mm3 (1.96-9.15); NEUTROPHILS PERCENT AUTO 79 % (41-73); Platelet Count 175 K/mm3 (150-400); RDW Coefficient Variation 18.3 % (11.7-14.2); Red Blood Cell Count 3.07 M/mm3 (4.30-5.90); White Blood Cell Count 9.06 K/mm3 (4.00-11.30)
[2018-06-26 05:38] LABS: Alanine Aminotransfer (ALT/SGP 46 U/L (12-78); Albumin, Blood 2.4 g/dL (3.4-5.0); Albumin/Globulin Ratio 0.8 (0.8-1.8); Alk Phos 56 U/L (50-136); Anion Gap 9 mmol/L (6-16); Aspartate Aminotrans (AST/SGOT 26 U/L (12-37); Bilirubin, Total 0.7 mg/dL (0.1-1.0); Blood Urea Nitrogen 21 mg/dL (8-24); Bun/Creatinine Ratio 30.6 (12.0-20.0); CO2, Blood 24 mmol/L (21-32); Calcium, Blood 7.9 mg/dL (8.5-10.1); Chloride, Blood 105 mmol/L (98-108); Creatinine, Blood 0.69 mg/dL (0.60-1.20); Globulin, Blood 3.2 g/dL (2.2-4.0); Glomerular Filtration Rate >60 (60-); Glucose, Blood 118 mg/dL (70-99); Potassium, Blood 3.7 mmol/L (3.5-5.5); Sodium, Blood 138 mmol/L (136-145); Total Protein, Blood 5.6 g/dL (6.4-8.2)
--- NOTE | 2018-06-26 17:36 | NUR ---
SHIFT SUMMARY 77 YR OLD MALE ADMITTED FOR PNEUMONIA/SEPSIS/GI BLEED. FULL CODE. WEANED OFF OF O2 TODAY. WAS INTUBATED WHILE IN PCU. POWER PICC LINE TO RT UPPER ARM. PT PLACED ON A SOFT DIET TODAY (UPGRADED FROM PUREE). STILL NO STRAWS. PILLS MAY BE TAKEN WHOLE WITH H2O. MEPILEX IN PLACE ON COCCYX. RECEIVING IV ANTIBIOTICS. LIVES WITH NOLA. PT IS ALERT AND ORIENTED. CURRENTLY WE ARE USING A LIFT FOR TRANSFERS, BUT HE IS WORKING WITH PT/OT. HX: COPD, PROSTATE CANCER
[2018-06-27 04:59] LABS: BASOPHILS ABSOLUTE AUTO 0.01 K/mm3 (0.00-0.23); BASOPHILS PERCENT AUTO 0 % (0-2); EOSINOPHILS ABSOLUTE AUTO 0.06 K/mm3 (0.00-0.68); EOSINOPHILS PERCENT AUTO 1 % (0-6); Hematocrit 28.3 % (37.0-53.0); Hemoglobin 8.7 g/dL (13.5-17.5); IMMATURE GRAN ABSOLUTE AUTO 0.04 K/mm3 (0.00-0.10); IMMATURE GRAN PERCENT AUTO 1 % (0-1); LYMPHOCYTES ABSOLUTE AUTO 0.62 K/mm3 (0.84-5.20); LYMPHOCYTES PERCENT AUTO 10 % (21-46); MONOCYTES ABSOLUTE AUTO 0.94 K/mm3 (0.16-1.47); MONOCYTES PERCENT AUTO 15 % (4-13); Mean Corpuscular HGB 29.8 pg (26.0-34.0); Mean Corpuscular HGB Conc 30.7 g/dL (31.5-36.5); NEUTROPHILS PERCENT AUTO 74 % (41-73); Platelet Count 181 K/mm3 (150-400); RDW Coefficient Variation 18.5 % (11.7-14.2); RDW Standard Deviation 61.5 fL (35.1-46.3); Red Blood Cell Count 2.92 M/mm3 (4.30-5.90); White Blood Cell Count 6.47 K/mm3 (4.00-11.30)
[2018-06-27 05:02] LABS: Mean Corpuscular Volume 97 fL (80-100)
[2018-06-27 05:35] LABS: Anion Gap 8 mmol/L (6-16); Blood Urea Nitrogen 17 mg/dL (8-24); Bun/Creatinine Ratio 22.6 (12.0-20.0); CO2, Blood 22 mmol/L (21-32); Calcium, Blood 7.8 mg/dL (8.5-10.1); Chloride, Blood 106 mmol/L (98-108); Creatinine, Blood 0.75 mg/dL (0.60-1.20); Glomerular Filtration Rate >60 (60-); Glucose, Blood 102 mg/dL (70-99); Potassium, Blood 3.4 mmol/L (3.5-5.5); Sodium, Blood 136 mmol/L (136-145)
--- NOTE | 2018-06-27 07:10 | NUR ---
SHIFT SUMMARY PT HAD GOOD SHIFT. PT SLEPT WELL T/O SHIFT. PT HAD NO ISSUES NOTED. PT WAS UP EARLY DOING HIS CHAIR EXERCISES. PT STATES HE IS READY TO GO HOME SOON. PT CALL LIGHT IN REACH.
--- NOTE | 2018-06-27 17:51 | NUR ---
SHIFT SUMMARY 77 YR OLD MALE ADMITTED FOR PNEUMONIA. FULL CODE. WEANED OFF OF O2 YESTERDAY, STILL SATURATING ABOVE 90% ON ROOM AIR. PT DUTIFULLY PERFORMING EXERCISES IN ROOM RECOMMENDED BY PHYSICAL THERAPY/OT. PT STILL USING A LIFT TO TRANSFER. PT REFUSING REHAB BUT IS WILLING TO HIRE HELP IF THE NEED SHOULD ARISE AT HOME. MEPILEX IS ON HIS COCCYX FOR A SKIN CRACK. PILLS MAY BE TAKEN WHOLE WITH WATER. POSSIBLE DVT IN LLE. PT LIVES AT HOME WITH . PT MAY DC TOMORROW TO HOME. POWER PICC IN RT UPPER ARM IS NOT OPTIMUM, BUT IF PT IS EXPECTED TO DC TOMORROW WE SHALL CONTINUE TO TRY TO MAKE IT WORK (UNLESS REDNESS OR SWELLING OCCUR). PT A&O X4, CALLS APPROPRIATELY, USES URINAL. WEARS BRIEFS. DIET IS SOFT/BITE SIZE, NO STRAWS.
--- NOTE | 2018-06-28 04:05 | NUR ---
SHIFT SUMMARY PT HAD NO ISSUES NOTED. PT HAS SLEPT WELL T/O SHIFT. PT IS EAGER TO GO HOME. PT CURRENTLY SLEEPING AND BREATHING EASY. CALL LIGHT IN REACH.
[2018-06-28] MEDS ORDERED: Metoprolol Tart25 MG PO (15:19)
[2018-06-28] MEDS ORDERED: MIDO5 PO (15:22)
[2018-06-28] MEDS ORDERED: PANT40 PO (15:22)
[2018-06-28] MEDS ORDERED: Aspercreme 1035.4 GM TOP (15:23)
[2018-06-28] MEDS ORDERED: LEVFLO500 PO (16:20)
--- NOTE | 2018-06-28 17:04 | NUR ---
DISCHARGE DISCHARGE INSTRUCTIONS, FOLLOW UP APPOINTMENTS AND MEDICATION LIST REVIEWED WITH PT. QUESTIONS/CONCERNS ANSWERED. PT VERBALLY INDICATED UNDERSTANDING OF ALL INSTRUCTIONS RECEIVED. NEW MEDS FAXED TO [facility] [address] PER PT PREFERENCE. PT TO BE TRANSPORTED HOME VIA [facility], WAITING FOR RIDE AT THIS TIME.
--- NOTE | 2018-06-28 17:15 | NUR ---
PT DISCHARGED VIA W/C WITH [facility]
== END 2018-06-28 17:26 | disposition home health service (06) | DRG 870 ==
LOC: ER 02:51 → ERHOLD 05:49 → ICUW 05:49 → ICUE 05:49 → MEDS 05:49 → PCU 05:49 → ICUW 09:20 → PCU 06-11 18:54 → ICUE 06-17 09:29 → PCU 06-24 18:01 → MEDS 06-25 15:58 → ENPENDDIS 06-28 15:01 → MEDS 06-28 17:26
PROVIDERS: Emergency Medicine; Hospitalist; Internal Medicine; Internal Medicine Critical Care Medicine; Internal Medicine Gastroenterology; Internal Medicine Pulmonary Disease; ADMIT Family Medicine
PROC: 3E0G8GC Introduction of Other Therapeutic Substance into Upper GI, Via Natural or Artificial Opening Endoscopic (ICD-10-PCS; 2018-06-18)
PROC: 0D598ZZ Destruction of Duodenum, Via Natural or Artificial Opening Endoscopic (ICD-10-PCS; 2018-06-18)
PROC: 3E033XZ Introduction of Vasopressor into Peripheral Vein, Percutaneous Approach (ICD-10-PCS; 2018-06-18)
PROC: 02HV33Z Insertion of Infusion Device into Superior Vena Cava, Percutaneous Approach (ICD-10-PCS; 2018-06-18)
PROC: 0BH17EZ Insertion of Endotracheal Airway into Trachea, Via Natural or Artificial Opening (ICD-10-PCS; principal; 2018-06-18 10:30)
PROC: 5A1955Z Respiratory Ventilation, Greater than 96 Consecutive Hours (ICD-10-PCS; 2018-06-18 10:30)
PROC: 5A09357 Assistance with Respiratory Ventilation, Less than 24 Consecutive Hours, Continuous Positive Airway Pressure (ICD-10-PCS; 2018-06-22)
PROC: 30233N1 Transfusion of Nonautologous Red Blood Cells into Peripheral Vein, Percutaneous Approach (ICD-10-PCS; 2018-06-23)
DX: A41.9 Sepsis, unspecified organism (principal); J96.01 Acute respiratory failure with hypoxia; R57.8 Other shock; I21.A1 Myocardial infarction type 2; J15.211 Pneumonia due to Methicillin susceptible Staphylococcus aureus; R65.21 Severe sepsis with septic shock; K26.4 Chronic or unspecified duodenal ulcer with hemorrhage; J44.1 Chronic obstructive pulmonary disease with (acute) exacerbation; J44.0 Chronic obstructive pulmonary disease with (acute) lower respiratory infection; I82.4Z2 Acute embolism and thrombosis of unspecified deep veins of left distal lower extremity; I82.442 Acute embolism and thrombosis of left tibial vein; K92.1 Melena; E87.1 Hypo-osmolality and hyponatremia; B37.0 Candidal stomatitis; F17.210 Nicotine dependence, cigarettes, uncomplicated; I10 Essential (primary) hypertension; I95.9 Hypotension, unspecified; R79.89 Other specified abnormal findings of blood chemistry; R60.9 Edema, unspecified; I27.20 Pulmonary hypertension, unspecified; B95.2 Enterococcus as the cause of diseases classified elsewhere; E87.6 Hypokalemia; D50.0 Iron deficiency anemia secondary to blood loss (chronic)
CPT/HCPCS: 31500; 31720; 36415; 36430; 36569; 36600; 51703; 71045; 71046; 71275; 74174; 80048; 80053; 80069; 80202; 81001; 82330; 82550; 82553; 82728; 82803; 82947; 83540; 83550; 83605; 83735; 83880; 84100; 84132; 84145; 84484; 85014; 85018; 85025; 85610; 85730; 86850; 86900; 86901; 86923; 87040; 87070; 87077; 87086; 87147; 87186; 87205; 87486; 87581; 87633; 87798; 92526; 92610; 93005; 93010; 93308; 93321; 93970; 93971; 94002; 94003; 94640; 94660; 94667; 94668; 94760; 94762; 96365; 96366; 96367; 96375; 97110; 97162; 97164; 97166; 97530; 97535; 98960; 99285-25; 99406; C1751; C9113; J0171; J0282; J0456; J0610; J0690; J0696; J0713; J1450; J1650; J1720; J1940; J1956; J2248; J2250; J2370; J2543; J2704; J2920; J2930; J3010; J3370; J3480; J7030; J7040; J7050; J7060; J7120; J7512; P9016; P9046; Q9967

== ENCOUNTER 2018-07-17 00:15 | Day surgery (SDC) | payer OTHER ==
[~2018-07-17 00:15] MED LIST changes: +Aspercreme 1035.4 GM TOP; +LEVFLO500 PO; +MIDO5 PO; +Metoprolol Tart25 MG PO; +PANT40 PO
[2018-07-17 11:44] LABS: BASOPHILS ABSOLUTE AUTO 0.04 K/mm3 (0.00-0.23); BASOPHILS PERCENT AUTO 0 % (0-2); EOSINOPHILS ABSOLUTE AUTO 0.02 K/mm3 (0.00-0.68); EOSINOPHILS PERCENT AUTO 0 % (0-6); Hemoglobin 8.3 g/dL (13.5-17.5); IMMATURE GRAN ABSOLUTE AUTO 0.14 K/mm3 (0.00-0.10); IMMATURE GRAN PERCENT AUTO 1 % (0-1); LYMPHOCYTES PERCENT AUTO 16 % (21-46); MONOCYTES ABSOLUTE AUTO 1.78 K/mm3 (0.16-1.47); MONOCYTES PERCENT AUTO 17 % (4-13); Mean Corpuscular HGB 26.4 pg (26.0-34.0); Mean Corpuscular HGB Conc 28.6 g/dL (31.5-36.5); Mean Corpuscular Volume 92 fL (80-100); Mean Platelet Volume 10.2 fL (9.1-12.4); NEUTROPHILS ABSOLUTE AUTO 6.92 K/mm3 (1.96-9.15); NEUTROPHILS PERCENT AUTO 65 % (41-73); Platelet Count 327 K/mm3 (150-400); RDW Coefficient Variation 18.6 % (11.7-14.2); RDW Standard Deviation 61.8 fL (35.1-46.3); Red Blood Cell Count 3.14 M/mm3 (4.30-5.90)
[2018-07-17] MEDS ORDERED: BUME2 PO (14:13)
[2018-07-17 17:12] LABS: BASOPHILS ABSOLUTE AUTO 0.03 K/mm3 (0.00-0.23); BASOPHILS PERCENT AUTO 0 % (0-2); EOSINOPHILS ABSOLUTE AUTO 0.04 K/mm3 (0.00-0.68); EOSINOPHILS PERCENT AUTO 0 % (0-6); Hematocrit 31.9 % (37.0-53.0); Hemoglobin 9.4 g/dL (13.5-17.5); IMMATURE GRAN ABSOLUTE AUTO 0.12 K/mm3 (0.00-0.10); IMMATURE GRAN PERCENT AUTO 1 % (0-1); LYMPHOCYTES ABSOLUTE AUTO 1.73 K/mm3 (0.84-5.20); LYMPHOCYTES PERCENT AUTO 19 % (21-46); MONOCYTES ABSOLUTE AUTO 1.42 K/mm3 (0.16-1.47); MONOCYTES PERCENT AUTO 15 % (4-13); Mean Corpuscular HGB 26.6 pg (26.0-34.0); Mean Corpuscular HGB Conc 29.5 g/dL (31.5-36.5); Mean Corpuscular Volume 90 fL (80-100); Mean Platelet Volume 10.7 fL (9.1-12.4); NEUTROPHILS ABSOLUTE AUTO 5.95 K/mm3 (1.96-9.15); NEUTROPHILS PERCENT AUTO 64 % (41-73); Platelet Count 329 K/mm3 (150-400); RDW Coefficient Variation 17.7 % (11.7-14.2); RDW Standard Deviation 57.8 fL (35.1-46.3); Red Blood Cell Count 3.54 M/mm3 (4.30-5.90); White Blood Cell Count 9.29 K/mm3 (4.00-11.30)
== END 2018-07-17 16:36 | disposition home or self-care (01) ==
LOC: ATC 00:15
PROVIDERS: Family Medicine
DX: D62 Acute posthemorrhagic anemia (principal); J44.9 Chronic obstructive pulmonary disease, unspecified; I10 Essential (primary) hypertension; M19.90 Unspecified osteoarthritis, unspecified site; F17.210 Nicotine dependence, cigarettes, uncomplicated
CPT/HCPCS: 36415; 36430; 85025; 86850; 86900; 86901; 86923; J7050; P9016

== ENCOUNTER → 2021-02-28 | Outpatient (CLI) | payer OTHER ==
[~2021-02-28] MED LIST changes: +ADVIL COLD; +AZELASTINE137 MCG/06 NS; +Acetaminophen650 M1 PO; +BREO ELLIPTA 11 EAC1 IH; +BUME2 PO; +CILOSTAZOL50 M1 PO; +MOXIOPS BOTHEYES; +XANAX0.25 MG PO; +[UNRECOGNIZED DRUG - OTHER]
== END | disposition home or self-care (01) ==
LOC: LAB SHORT 07:23
DX: C44.321 Squamous cell carcinoma of skin of nose (principal)
CPT/HCPCS: 88305

== ENCOUNTER 2021-03-05 03:08 | Inpatient (IN) | payer OTHER ==
[~2021-03-05] VITALS: Ht 172.7 cm; Wt 60.5 kg
[~2021-03-05 03:08] MED LIST changes: -ADVIL COLD; -AZELASTINE137 MCG/06 NS; -Acetaminophen650 M1 PO; -BREO ELLIPTA 11 EAC1 IH; -CILOSTAZOL50 M1 PO; -MOXIOPS BOTHEYES; -XANAX0.25 MG PO; -[UNRECOGNIZED DRUG - OTHER]
[2021-03-05 03:43] LABS: BASOPHILS ABSOLUTE AUTO 0.03 K/mm3 (0.00-0.23); BASOPHILS PERCENT AUTO 0 % (0-2); EOSINOPHILS ABSOLUTE AUTO 0.02 K/mm3 (0.00-0.68); EOSINOPHILS PERCENT AUTO 0 % (0-6); Hematocrit 45.2 % (37.0-53.0); Hemoglobin 14.5 g/dL (13.5-17.5); IMMATURE GRAN ABSOLUTE AUTO 0.07 K/mm3 (0.00-0.10); IMMATURE GRAN PERCENT AUTO 0 % (0-1); LYMPHOCYTES ABSOLUTE AUTO 0.73 K/mm3 (0.84-5.20); LYMPHOCYTES PERCENT AUTO 4 % (21-46); MONOCYTES ABSOLUTE AUTO 2.11 K/mm3 (0.16-1.47); MONOCYTES PERCENT AUTO 12 % (4-13); Mean Corpuscular HGB 28.2 pg (26.0-34.0); Mean Corpuscular HGB Conc 32.1 g/dL (31.5-36.5); Mean Corpuscular Volume 88 fL (80-100); Mean Platelet Volume 11.3 fL (9.1-12.4); NEUTROPHILS ABSOLUTE AUTO 14.09 K/mm3 (1.96-9.15); NEUTROPHILS PERCENT AUTO 83 % (41-73); Platelet Count 320 K/mm3 (150-400); RDW Coefficient Variation 16.4 % (11.7-14.2); RDW Standard Deviation 53.4 fL (35.1-46.3); Red Blood Cell Count 5.15 M/mm3 (4.30-5.90); White Blood Cell Count 17.05 K/mm3 (4.00-11.30)
[2021-03-05 04:03] LABS: Alanine Aminotransfer (ALT/SGP 52 U/L (12-78); Albumin, Blood 2.7 g/dL (3.4-5.0); Albumin/Globulin Ratio 0.6 (0.8-1.8); Alk Phos 101 U/L (50-136); Anion Gap 7 mmol/L (6-16); Aspartate Aminotrans (AST/SGOT 36 U/L (12-37); Bilirubin, Total 0.5 mg/dL (0.1-1.0); Blood Urea Nitrogen 24 mg/dL (8-24); CO2, Blood 27 mmol/L (21-32); Calcium, Blood 8.9 mg/dL (8.5-10.1); Chloride, Blood 102 mmol/L (98-108); Creatinine, Blood 0.71 mg/dL (0.60-1.20); Globulin, Blood 4.7 g/dL (2.2-4.0); Glomerular Filtration Rate >60 (60-); Glucose, Blood 138 mg/dL (70-99); Potassium, Blood 3.8 mmol/L (3.5-5.5); Sodium, Blood 136 mmol/L (136-145); Total Protein, Blood 7.4 g/dL (6.4-8.2); Troponin I <0.015 ng/mL (0.000-0.040)
[2021-03-05 04:20] LABS: Influenza A, PCR NEGATIVE (NEGATIVE); Influenza B, PCR NEGATIVE (NEGATIVE); Resp Syncytial Virus, PCR NEGATIVE (NEGATIVE); SARS-Cov-2 (COVID-19) PCR, MMC NEGATIVE (NEGATIVE)
[2021-03-05] MEDS ORDERED: MOXIOPS BOTHEYES (08:36)
[2021-03-05] MEDS ORDERED: XANAX0.25 MG PO (08:37)
[2021-03-05] MEDS ORDERED: AZELASTINE137 MCG/06 NS (08:37)
[2021-03-05] MEDS ORDERED: [UNRECOGNIZED DRUG - OTHER] (08:37)
[2021-03-05] MEDS ORDERED: ADVIL COLD (08:37)
[2021-03-05] MEDS ORDERED: BREO ELLIPTA 11 EAC1 IH (08:38)
[2021-03-05] MEDS ORDERED: CILOSTAZOL50 M1 PO (08:38)
[2021-03-05] MEDS ORDERED: Acetaminophen650 M1 PO (08:40)
[2021-03-05 15:18] LABS: PCO2 Arterial 37.7 mmHg (35-45); PO2 Arterial 59.2 mmHg (80-100); pH Blood Arterial 7.46 (7.35-7.45)
--- NOTE | 2021-03-05 17:47 | NUR ---
PT SUMMARY: PT ARRIVED IN THE UNIT AT 1530 VIA STRETCHER, USED SLIDE SHEET TO TRANSFER TO BED. REPORT RECEIVED FROM CHASITY RUSH. PT IS HERE FOR SEPSIS/COPD EXACERBATION, PT WAS ON NASAL CANNULA O2 5L UPON ARRIVAL SWITCH TO CPAP MACHINE WITH 5L O2 BLEED. PT IS ALERT AND ORIENTED X3, GARBLED SPEECH DUE TO BIPAP MASK AND HAS NO DENTURES IN PLACE. VITALS HRR SR AT 100'S, BP SYSTOLIC 140'S, SATS ABOVE 95%, AFEBRILE. PT IS CURRENTLY NPO POSS DUE TO BREATHING ISSUES, OFFERED DRINKS AND FOOD AT DINNER TIME PT REFUSED AND WOULD LIKE TO SLEEP MORE. NOLA CALLED AND WAS GIVEN UPDATE REGARDING PT. ABG WAS DONE CO2 WITHIN NORMAL RANGE PH 7.46. PT HAS BILATERAL EXTREMITIES REDNESS VENOUS DOPPLER ULTRASOUND PENDING. PT ORIENTED IN THE ROOM, PROPER USE OF CALL LIGHTS, NO OTHER ISSUES AT THIS TIME, WILL REPORT TO ONCOMING SHIFT
[2021-03-06 04:17] LABS: Hematocrit 46.5 % (37.0-53.0); Hemoglobin 14.8 g/dL (13.5-17.5); Mean Corpuscular HGB 27.9 pg (26.0-34.0); Mean Corpuscular HGB Conc 31.8 g/dL (31.5-36.5); Mean Corpuscular Volume 88 fL (80-100); Mean Platelet Volume 11.5 fL (9.1-12.4); Platelet Count 333 K/mm3 (150-400); RDW Coefficient Variation 16.4 % (11.7-14.2); RDW Standard Deviation 53.3 fL (35.1-46.3); White Blood Cell Count 12.84 K/mm3 (4.00-11.30)
[2021-03-06 04:57] LABS: Albumin, Blood 2.5 g/dL (3.4-5.0); Anion Gap 9 mmol/L (6-16); Blood Urea Nitrogen 31 mg/dL (8-24); Bun/Creatinine Ratio 37.8 (12.0-20.0); CO2, Blood 27 mmol/L (21-32); Chloride, Blood 102 mmol/L (98-108); Creatinine, Blood 0.82 mg/dL (0.60-1.20); Glomerular Filtration Rate >60 (60-); Glucose, Blood 126 mg/dL (70-99); Phosphorus, Blood 3.3 mg/dL (2.5-4.9); Sodium, Blood 138 mmol/L (136-145)
--- NOTE | 2021-03-06 05:25 | NUR ---
SHIFT SUMMARY: PATIENT'S BP AND LACTIC WNL. TELEMETRY REPORTED ONE RUN OF SR WITH PVCS AND HR >110 - THIS RN WAS IN ROOM WITH PATIENT WHO WAS TALKING NORMALLY AND DENIED CHEST DISCOMFORT. PATIENT COUGHING COPIOUS AMOUNTS OF TENACIOUS GREEN-BROWN SPUTUM - SUCTIONED ONCE THIS SHIFT. PATIENT REFUSED NICOTINE PATCH AND REQUESTS COFFEE. REMINDED HE CANNOT HAVE FLUIDS WHEN ON BIPAP. PATIENT STATES "I DON'T UNDERSTAND WHY I'M HERE" HE FEELS THE SAME HE DOES AT HOME. PATIENT EDUCATED THAT HIS OXYGEN DEMANDS HAVE INCREASED BECAUSE HE HAS PNEUMONIA. NO ADVERSE EVENTS THIS SHIFT, WILL CONTINUE TO MONITOR AND REPORT TO ONCOMING RN.
[2021-03-06 05:31] LABS: BAND PERCENT MAN 11 % (0-8); BASOPHILS PERCENT MAN 0 % (0-2); EOSINOPHILS PERCENT MAN 0 % (0-6); LYMPHOCYTES ABSOLUTE MAN 0.25 K/mm3 (0.84-5.20); LYMPHOCYTES PERCENT MAN 2 % (21-46); MONOCYTES ABSOLUTE MAN 0.89 K/mm3 (0.16-1.47); MONOCYTES PERCENT MAN 7 % (4-13); NEUTROPHILS ABSOLUTE MAN 11.68 K/mm3 (1.96-9.15); SEG NEUTROPHILS PERCENT MAN 80 % (41-73); TOTAL CELLS COUNTED 100
--- NOTE | 2021-03-06 18:11 | NUR ---
PT SUMMARY: NO ACUTE CHANGE FOR THE SHIFT. VITALS REMAINED STABLE. O2 TITRATED DOWN TO 6L ON OXYMIZER SATS REMAINED ABOVE 90%, WILL DESAT TO 85% RECOVERS BACK UP QUICK WHEN INSTRUCTED TO ABOUT DEEP BREATHING EXERCISES. PT HAS THICK MUCOUS PRODUCTIVE COUGH YELLOW BROWN IN COLOR, SUCTIONED OFTEN, PT WAS EDUCATED ABOUT USE OF SUCTION PT WAS ABLE TO DEMONSTRATE. PO INTAKE WITH NO ISSUES. PT HAS BEEN VOIDING USING THE URINAL, OCCASIONAL EPISODES OF INCONTINENCE. PT AHD A BED BATH TODAY REPOSITIONED IN BED FOR COMFORT, PT WAS UP IN THE CHAIR FOR DINNER, PT WAS A 2 PA VIA GAIT BELT TO TRANSFER TO A CHAIR, WILL ADDRESS PT/OT EVAL IN AM. NO PAIN REPORTED FOR THE SHIFT. NO TOHER ISSUES REPORTED, PT ABLE TO MAKE NEEDS KNOWN, CALLS APPROPRIATELY WILL REPORT TO ONCOMING SHIFT
--- NOTE | 2021-03-06 21:44 | NUR ---
ASSUMED CARE PT IS ALERT AND ORIENTED. VERY PLEASANT. VITAL SIGNS ARE STABLE. PT IS ON 9L OXYMIZER WITH SATS OF 91% AND ABOVE. PT DENIES CHEST PAIN OR SOB. HE IS ABLE TO COMMUNICATE NEEDS. CALL LIGHT IS IN REACH. WILL CONTINUE TO MONITOR.
--- NOTE | 2021-03-06 23:30 | NUR ---
CALLED DR MARTÍNEZ DUE TO PT REQUEST TO RESUME XANAX FROM [facility]. ORDERED ENTERED.
[2021-03-07 03:54] LABS: BASOPHILS ABSOLUTE AUTO 0.03 K/mm3 (0.00-0.23); BASOPHILS PERCENT AUTO 0 % (0-2); EOSINOPHILS PERCENT AUTO 0 % (0-6); Hematocrit 44.4 % (37.0-53.0); Hemoglobin 14.2 g/dL (13.5-17.5); IMMATURE GRAN ABSOLUTE AUTO 0.18 K/mm3 (0.00-0.10); IMMATURE GRAN PERCENT AUTO 1 % (0-1); LYMPHOCYTES ABSOLUTE AUTO 0.67 K/mm3 (0.84-5.20); LYMPHOCYTES PERCENT AUTO 5 % (21-46); MONOCYTES ABSOLUTE AUTO 1.13 K/mm3 (0.16-1.47); MONOCYTES PERCENT AUTO 8 % (4-13); Mean Corpuscular HGB 28.2 pg (26.0-34.0); Mean Corpuscular Volume 88 fL (80-100); Mean Platelet Volume 11.3 fL (9.1-12.4); NEUTROPHILS ABSOLUTE AUTO 12.15 K/mm3 (1.96-9.15); NEUTROPHILS PERCENT AUTO 86 % (41-73); Platelet Count 303 K/mm3 (150-400); RDW Coefficient Variation 16.2 % (11.7-14.2); RDW Standard Deviation 52.5 fL (35.1-46.3); Red Blood Cell Count 5.04 M/mm3 (4.30-5.90); White Blood Cell Count 14.16 K/mm3 (4.00-11.30)
[2021-03-07 04:16] LABS: Albumin, Blood 2.5 g/dL (3.4-5.0); Anion Gap 8 mmol/L (6-16); Blood Urea Nitrogen 38 mg/dL (8-24); Bun/Creatinine Ratio 46.5 (12.0-20.0); CO2, Blood 28 mmol/L (21-32); Calcium, Blood 8.6 mg/dL (8.5-10.1); Chloride, Blood 101 mmol/L (98-108); Creatinine, Blood 0.82 mg/dL (0.60-1.20); Glomerular Filtration Rate >60 (60-); Glucose, Blood 147 mg/dL (70-99); Phosphorus, Blood 3.6 mg/dL (2.5-4.9); Potassium, Blood 3.9 mmol/L (3.5-5.5); Sodium, Blood 137 mmol/L (136-145)
--- NOTE | 2021-03-07 06:27 | NUR ---
SHIFT SUMMARY PT IS ALERT AND ORIENTED. VITAL SIGNS ARE STABLE AND HAS BEEN ON 10L OXYMIZER WITH SATS ABOVE 90%. THERE HAVE BEEN NO ACUTE CHANGES T/O THE NIGHT. PT HAS NOT SLEPT T/O THE NIGHT. THIS AM WHEN GIVING AM MEDS HE WAS ASLEEP. PT HAS BEEN ASKING STAFF MEMBERS TO TAKE HIM OUTSIDE "FOR A SMOKE" REFUSING NICOTINE PATCH OPTION. PT WAS ABLE [place] [facility] WITH 2 MAX ASSIST, FWW, AND GAITBELT. USING URINAL AND DID NOT HAVE INCONT EPISODES. CALL LIGHT IS WITHIN REACH.
--- NOTE | 2021-03-07 11:09 | NUR ---
PT TRANSFERRED TO ROOM 312 REPORT GIVEN TO TAMEKA RN, PT TRANSPORTED VIA BED, ALL BELONGINGS SENT WITH THE PT, PT WITH TELE. NO ACUTE CHANGE FOR THE SHIFT, VITALS HAS BEEN STABLE, REMAINS ON 8L OF O2 VIA OXYMIZER PT TOLERATING WELL DESATS TO 85% WITH EXERTION RECOVERS QUICK. NO ISSUES WITH BREAKFAST AND TAKING PILLS. UPSET ABOUT PT BEING TRANSFERRED TO MEDICAL FLOOR ABOUT CARE PROVIDED 3 YEARS AGO WHEN PT WAS ADMITTED TO MEDICAL FLOOR, ISSUES ADDRESS WITH THE CHARGE NURSE RE-ASSURED PT CARE SATISFACTION. PT/OT ORDERED, REPEAT CHEST XRAY DONE.
[2021-03-08 04:35] LABS: BASOPHILS ABSOLUTE AUTO 0.03 K/mm3 (0.00-0.23); BASOPHILS PERCENT AUTO 0 % (0-2); EOSINOPHILS PERCENT AUTO 0 % (0-6); Hemoglobin 14.2 g/dL (13.5-17.5); IMMATURE GRAN ABSOLUTE AUTO 0.22 K/mm3 (0.00-0.10); IMMATURE GRAN PERCENT AUTO 2 % (0-1); LYMPHOCYTES ABSOLUTE AUTO 0.59 K/mm3 (0.84-5.20); LYMPHOCYTES PERCENT AUTO 5 % (21-46); MONOCYTES PERCENT AUTO 7 % (4-13); Mean Corpuscular HGB 28.1 pg (26.0-34.0); Mean Corpuscular HGB Conc 31.6 g/dL (31.5-36.5); Mean Corpuscular Volume 89 fL (80-100); Mean Platelet Volume 11.7 fL (9.1-12.4); NEUTROPHILS ABSOLUTE AUTO 10.51 K/mm3 (1.96-9.15); NEUTROPHILS PERCENT AUTO 86 % (41-73); Platelet Count 311 K/mm3 (150-400); RDW Coefficient Variation 15.9 % (11.7-14.2); RDW Standard Deviation 52.6 fL (35.1-46.3); Red Blood Cell Count 5.06 M/mm3 (4.30-5.90); White Blood Cell Count 12.25 K/mm3 (4.00-11.30)
[2021-03-08 05:34] LABS: Albumin, Blood 2.3 g/dL (3.4-5.0); Anion Gap 9 mmol/L (6-16); Blood Urea Nitrogen 43 mg/dL (8-24); Bun/Creatinine Ratio 48.5 (12.0-20.0); CO2, Blood 28 mmol/L (21-32); Calcium, Blood 8.8 mg/dL (8.5-10.1); Chloride, Blood 99 mmol/L (98-108); Creatinine, Blood 0.89 mg/dL (0.60-1.20); Glomerular Filtration Rate >60 (60-); Glucose, Blood 230 mg/dL (70-99); Phosphorus, Blood 3.6 mg/dL (2.5-4.9); Potassium, Blood 3.8 mmol/L (3.5-5.5); Sodium, Blood 136 mmol/L (136-145)
--- NOTE | 2021-03-08 18:32 | NUR ---
SHIFT SUMMARY- PT IS A/O, PLESANT AND COOPERATIVE. HE IS EATING AND DRINKING WELL. HIS INC AND ATTENDS ARE IN PLACE. HE IS RECIEVING IV STEROIDS. HE WORKED WITH PT AND OT THIS SHIFT AND TOLERATED WELL.
[2021-03-09 05:20] LABS: BASOPHILS ABSOLUTE AUTO 0.03 K/mm3 (0.00-0.23); BASOPHILS PERCENT AUTO 0 % (0-2); EOSINOPHILS PERCENT AUTO 0 % (0-6); Hematocrit 45.1 % (37.0-53.0); Hemoglobin 14.1 g/dL (13.5-17.5); IMMATURE GRAN ABSOLUTE AUTO 0.47 K/mm3 (0.00-0.10); IMMATURE GRAN PERCENT AUTO 4 % (0-1); LYMPHOCYTES ABSOLUTE AUTO 0.56 K/mm3 (0.84-5.20); LYMPHOCYTES PERCENT AUTO 5 % (21-46); MONOCYTES ABSOLUTE AUTO 1.26 K/mm3 (0.16-1.47); MONOCYTES PERCENT AUTO 11 % (4-13); Mean Corpuscular HGB 27.6 pg (26.0-34.0); Mean Corpuscular HGB Conc 31.3 g/dL (31.5-36.5); Mean Corpuscular Volume 88 fL (80-100); Mean Platelet Volume 11.9 fL (9.1-12.4); NEUTROPHILS ABSOLUTE AUTO 9.71 K/mm3 (1.96-9.15); NEUTROPHILS PERCENT AUTO 81 % (41-73); Platelet Count 317 K/mm3 (150-400); RDW Coefficient Variation 15.9 % (11.7-14.2); RDW Standard Deviation 52.2 fL (35.1-46.3); White Blood Cell Count 12.03 K/mm3 (4.00-11.30)
[2021-03-09 05:41] LABS: Albumin, Blood 2.4 g/dL (3.4-5.0); Anion Gap 9 mmol/L (6-16); Blood Urea Nitrogen 38 mg/dL (8-24); Bun/Creatinine Ratio 50.5 (12.0-20.0); CO2, Blood 32 mmol/L (21-32); Calcium, Blood 8.1 mg/dL (8.5-10.1); Chloride, Blood 98 mmol/L (98-108); Creatinine, Blood 0.75 mg/dL (0.60-1.20); Glomerular Filtration Rate >60 (60-); Glucose, Blood 139 mg/dL (70-99); Phosphorus, Blood 3.8 mg/dL (2.5-4.9); Potassium, Blood 4.2 mmol/L (3.5-5.5); Sodium, Blood 139 mmol/L (136-145)
--- NOTE | 2021-03-09 15:37 | NUR ---
Received referral from nurse career guidance counselor (Cristina Guzman) on 03/09/2021. Patient is to discharge with orders for home health and elected [place]. Met with patient to further discuss the above. Patient is agreeable to the above. Discussed homebound status definition with patient. Patient verbalized understanding. Discussed what home health is vs what it is not (in home caregivers/housekeeping). Patient verbalized understanding. Discussed the next steps in the process of an initial assessment to determine frequency of visits. Again patient verbalized understanding. Offered a chance for patient to ask questions regarding the above of which there were none. At this time patient has no discharge orders entered. Will continue to monitor and follow for discharge. Chika Gorman Referral Liaison
--- NOTE | 2021-03-09 17:30 | NUR ---
ALERT. ORIENTED. COOPERATIVE. VERY WEAK, 2 PERSON ASSIST. WANTS TO GO HOME SO HE "CAN SMOKE." ON 10LPM OXYMIZER WITH SAT >89%. BRUISING T/O . DOES NOT SEEM TO USE CALL LIGHT,BUT IS ABLE TO MAKE NEEDS KNOWN. WCTM
[2021-03-10 05:45] LABS: Anion Gap 10 mmol/L (6-16); Blood Urea Nitrogen 36 mg/dL (8-24); Bun/Creatinine Ratio 53.1 (12.0-20.0); CO2, Blood 32 mmol/L (21-32); Calcium, Blood 8.2 mg/dL (8.5-10.1); Chloride, Blood 93 mmol/L (98-108); Creatinine, Blood 0.68 mg/dL (0.60-1.20); Glomerular Filtration Rate >60 (60-); Glucose, Blood 135 mg/dL (70-99); Potassium, Blood 4.2 mmol/L (3.5-5.5); Sodium, Blood 135 mmol/L (136-145)
--- NOTE | 2021-03-10 07:24 | NUR ---
SHIFT SUMMARY: PATIENT IS VERY MOTIVATED TO WEAN DOWN 02. STARTED THE SHIFT ON 8L OXIMIZER. NOW ON 5L VIA OXIMIZER SATS 87-93%. INC. OF URINE. BED ALARM IN ON FOR SAFETY.
--- NOTE | 2021-03-10 15:16 | NUR ---
ADVISED , NOLA, WOULD LIKE A CALL ABOUT CT RESULTS AND WHEN HE IS GOING HOME. TO CALL.
--- NOTE | 2021-03-10 17:37 | NUR ---
ALERT. ORIENTED. VERY WEAK. WAS ABLE TO STAND AND MOVE 2 TINY STEPS TO THE SIDE NEXT TO THE BED AND THEN SIT BACK DOWN. UPDATED ON PATIENT CONDITION. OXYGEN WAS TURNED UP TO 8 LPM THIS A.M. DUE TO SATS IN MID 80'S. PATIENT DESATS WHEN TALKING, MOVING OR EATTING. AT THIS TIME OXYGEN AT 6LPM WITH SATS 90-91%. FACE TIMES MOST OF DAY WITH . INCONTINENT OF BOWEL AND URINE AND PATIENT DOES NOT APPEAR TO NOTICE IF HE IS SOILED OR WET. TELE ON AND HAS BEEN SR IN 60'S. [facility]
--- NOTE | 2021-03-11 06:46 | NUR ---
SHIFT SUMMARY: PATIENT STARTED SHIFT ON 6L OXIMIZER. PROGRESSIVELY THROUGH THE NIGHT SATS DROPPED TO MID 8O'S REQUIRING AND INCREASE IN 02 1 L AT A TIME. PATIENT IS NO ON 10 VIA OXIMIZER. LINGS ARE DIMINISHED WITH A PRODUCTIVE COUGH, A LARGE AMOUNT OF THICK YELLOW SPUTUM WAS FOUND ON THE BLANKET. INC. OF BOWEL AND BLADDER.
--- NOTE | 2021-03-11 16:34 | NUR ---
SHIFT SUMMARY PATIENT IS ALERT AND ORIENTED X4. PATIENT IS VERY WEAK. PATIENT IS A 2 PERSON ASSIST FOR MOVEMENT. PATIENT IS ON 8 LITERS OXIMIZER. PATIENT HAS FACETIMED HIS FREQUENTLY FOR COMPANY ON PHONE. PATIENT IS INCONTINENT OF BOWEL AND URINE. PATIENT IS APPROPRIATE USING THE CALL LIGHT. VITAL SIGNS REVIEWED. NO ACUTE EVENTS THIS SHIFT. WILL MONITOR UNTIL SHIFT CHANGE.
--- NOTE | 2021-03-12 08:11 | NUR ---
HAD C/O OF SOB. SMOKER WITH COPD. CURRENTLY ON OXYMIZER AT 11L TO KEEP SPO2 ABOVE 89%. PATIENT IS IN MID 90'S% WHEN SLEEPING, BUT DROPS TO HIGH 80'S% WHEN HE ROLLS AROUND IN BED. SPUTUM POSITIVE FOR PSEUDOMONAS. CT CHEST AND CHEST XR BOTH SHOW BLL PNA. NO COMPLAINTS OF PAIN DURING SHIFT.
[2021-03-12 09:19] LABS: PCO2 Arterial 46.5 mmHg (35-45); PO2 Arterial 80.2 mmHg (80-100)
--- NOTE | 2021-03-12 10:29 | NUR ---
PATIENT NOTE PATIENT WAS SATTING IN THE LOW TO MID 80S ON 15 LITERS OXIMIZER. RT WAS NOTIFIED AND TRIED A BREATHING TREATMENT. BREATHING TREATMENT DID NOT HELP 02. PATIENT WAS ULTIMATELY PUT ON AIRVO 60 LITERS 80 PERCENT.
[2021-03-12 10:38] LABS: Influenza A, PCR NEGATIVE (NEGATIVE); Influenza B, PCR NEGATIVE (NEGATIVE); Resp Syncytial Virus, PCR NEGATIVE (NEGATIVE); SARS-Cov-2 (COVID-19) PCR, MMC NEGATIVE (NEGATIVE)
--- NOTE | 2021-03-12 16:02 | NUR ---
pt on airvo mouth breathing. pt called to review care. still wanting full treatment. pt does not have vocational training teacher. He only sees dr pulido. will suggest consult. states pt has been fighting bad sinus infection. Pt denies headache or sinus pain no ringing in his ears no difficulty swallowing. States he feels he is working to breath. RT in to adjust his oxygen. at this point pt and family want full treatment.
--- NOTE | 2021-03-12 17:49 | NUR ---
SHIFT SUMMARY PATIENT IS ALERT AND ORIENTED X4. PATIENT IS HARD OF HEARING. PATIENT STARTED SHIFT ON 11L OXIMIZER. PATIENT SATTED LOW 80S ON 15 LITERS OF O2. RT WAS NOTIFIED AND ATTEMPTED A BREATHING TREATMENT. RT DECIDED TO PUT PATIENT ON AIRVO. CURRENT AIRVO SETTINGS ARE 55 LITERS 70 FIO2 SATTING MID TO HIGH 90S. PALATIVE CARE CONSULTED. PATIENT HAD NO COMPLAINTS OF NAUSEA, SOB, OR VOMITTING THIS SHIFT. PULMONARY WAS CONSULTED AND LEFT MESSAGE. CALL LIGHT IN PLACE. WILL MONITOR UNTIL SHIFT CHANGE.
[2021-03-13 05:11] LABS: Hematocrit 34.4 % (37.0-53.0); Mean Corpuscular HGB 27.9 pg (26.0-34.0); Mean Corpuscular Volume 87 fL (80-100); Mean Platelet Volume 11.5 fL (9.1-12.4); Platelet Count 222 K/mm3 (150-400); RDW Coefficient Variation 15.7 % (11.7-14.2); RDW Standard Deviation 49.7 fL (35.1-46.3); Red Blood Cell Count 3.94 M/mm3 (4.30-5.90); White Blood Cell Count 24.47 K/mm3 (4.00-11.30)
[2021-03-13 05:29] LABS: Albumin, Blood 2.2 g/dL (3.4-5.0); Anion Gap 9 mmol/L (6-16); Blood Urea Nitrogen 46 mg/dL (8-24); Bun/Creatinine Ratio 66.4 (12.0-20.0); CO2, Blood 31 mmol/L (21-32); Calcium, Blood 8.3 mg/dL (8.5-10.1); Chloride, Blood 95 mmol/L (98-108); Creatinine, Blood 0.69 mg/dL (0.60-1.20); Glomerular Filtration Rate >60 (60-); Glucose, Blood 156 mg/dL (70-99); Phosphorus, Blood 3.6 mg/dL (2.5-4.9); Potassium, Blood 4.1 mmol/L (3.5-5.5); Sodium, Blood 135 mmol/L (136-145)
--- NOTE | 2021-03-13 06:42 | NUR ---
PATIENT STILL DEALING WITH DYSPNEA ON EXERTION. HE WAS ABLE TO BE LOWERED TO 45L AND 40 FIO2 ON THE AIRVO. HE IS STATING HE FEELS MUCH BETTER THIS MORNING. WBC WERE 24.47 THIS AM BLOOD DRAW. CURRENTLY A TOBACCO USER WITH SEVEVERE COPD. PALLIATIVE CONSULT WAS DONE YESTERDAY AND FAMILY WANTS HIM TO STAY A FULL CODE.
--- NOTE | 2021-03-13 16:37 | NUR ---
SHIFT SUMMARY PATIENT IS ALERT AND ORIENTED X3-4. PATIENT HAS BEEN PLEASENT AND COOPERATIVE WITH CARE. PATIENT HAS WORKED WITH PT AND IS IN CHAIR CURRENTLY. PATIENT IS ON AN AIRVO @ 45LITERS 45 PERCENT AND SATTING MID 90S. PATIENT HAS PULMONARY VEST DONE 3 TIMES DAILY. I HAVE CALLED AND UPDATED TWICE THIS SHIFT. PATIENT HAD PE STUDY DONE TODAY AND SHOWED NO ACUTE PULMONARY EMBOLISM PRESENT. VITAL SIGNS REVIEWED. NO ACUTE EVENTS THIS SHIFT. WILL MONITOR UNTIL SHIFT CHANGE. PLEASE ALERT DAY SHIFT THAT PATIENT HAS AN ORDER FOR A PICC LINE TO BE PLACED ON SUNDAY.
[2021-03-14 04:36] LABS: Hematocrit 32.5 % (37.0-53.0); Hemoglobin 10.2 g/dL (13.5-17.5); Mean Corpuscular HGB 28.2 pg (26.0-34.0); Mean Corpuscular HGB Conc 31.4 g/dL (31.5-36.5); Mean Corpuscular Volume 90 fL (80-100); Mean Platelet Volume 11.9 fL (9.1-12.4); Platelet Count 217 K/mm3 (150-400); RDW Coefficient Variation 15.8 % (11.7-14.2); RDW Standard Deviation 51.7 fL (35.1-46.3); Red Blood Cell Count 3.62 M/mm3 (4.30-5.90)
[2021-03-14 04:55] LABS: Albumin, Blood 2.1 g/dL (3.4-5.0); Anion Gap 6 mmol/L (6-16); Blood Urea Nitrogen 35 mg/dL (8-24); Bun/Creatinine Ratio 47.7 (12.0-20.0); CO2, Blood 31 mmol/L (21-32); Calcium, Blood 8.1 mg/dL (8.5-10.1); Chloride, Blood 100 mmol/L (98-108); Creatinine, Blood 0.73 mg/dL (0.60-1.20); Glomerular Filtration Rate >60 (60-); Glucose, Blood 101 mg/dL (70-99); Phosphorus, Blood 2.9 mg/dL (2.5-4.9); Potassium, Blood 3.9 mmol/L (3.5-5.5); Sodium, Blood 137 mmol/L (136-145)
--- NOTE | 2021-03-14 06:28 | NUR ---
PATIENT IS ON AIRVO AT 45L AND 46% FIO2. CT CHEST WAS NEGATIVE FOR PE BUT SHOWED SEVERE EMPHYSEMA. WBCs CONTINUE TO GO UP AND ARE NOW 26.2 . HE IS A&Ox3 AND NOT ORIENTED TO TIME. HE IS A CURRENT TOBACCO USER AND ASKS FOR CIGARETTES A FEW TIMES PER SHIFT. PALLIATIVE WAS CONSULTED AND FAMILY WANTS HIM FULL CODE AT THIS TIME. PLANS ARE FOR HIM TO GET A PICC LINE THIS MORNING FOR LONG-TERM CARE OF [facility]
--- NOTE | 2021-03-14 12:16 | NUR ---
PATIENT COMPLAINED OF FEELING SHORT OF BREATH AT ABOUT 1100. HIS HEAD OF BED WAS LOW. RAISED HEAD OF BED TO 45 DEGRESS, ASSESSED O2 WHICH WAS 95%, AND LISTENED TO LUNG SOUNDS. PATIENT STATED HIS BREATHING IMPROVED WHEN HE SAT UP HIGHER IN BED.
--- NOTE | 2021-03-14 13:19 | NUR ---
PATIENT ATE ABOUT 50% OF LUNCH WHILE UP IN CHAIR. PATIENT IS NOW RECLINING IN CHAIR WITH A WARM BLANKET AND RESTING COMFORTABLY.
--- NOTE | 2021-03-14 19:19 | NUR ---
SHIFT SUMMARY PTS ORIENTATION COMING IN AND OUT THROUGHOUT THE DAY. UP TO RECLINER CHAIR PRIOR TO LUNCH WITH O.T. O2 DROPPED TO 45L/40% WITH SATS REMAINING IN MID 90'S. CALLING AND SPEAKING WITH MULTIPLE TIMES THROUGH THE DAY. ASKING FOR SNACKS FREQUENTLY. NO S/S OF RESP DISTRESS TODAY EXCEPT FOR SHOR TIME THIS MORNING WHICH RAISING THE HEAD OF HIS BED HELPED. MOIST NON PRODUCTIVE COUGH.
--- NOTE | 2021-03-15 04:42 | NUR ---
PATIENT HAS HAD AN UNEVENTFUL NIGHT. CALLS FOR STAFF NEEDED. HYPOTENSIVE AT THE START OF SHIFT HOWEVER VITALS ARE ALL STABLE AND WNL AT AM CHECK. NO COMPLAINTS OF PAIN OR DISCOMFORT. CONTINUES ON IV ABX WITHOUT S/SX ADVERSE REACTIONS NOTED OR REPORTED. PATIENT CONTINUES ON 45L O2 VIA AIRVO. PATIENT ASLEEP IN BED AT THIS TIME. CALL LIGHT WITHIN REACH.
--- NOTE | 2021-03-15 17:19 | NUR ---
SHIFT SUMMARY PT UP IN RECLINER CHAIR TODAY AFTER LUNCH FOR SEVERAL HOURS. TOLERATED WELL. AIRVO ON AND CONTINUOUS PULSE OX ON AND HAS REMAINED IN HIGH 90'S THROUGHOUT THE DAY. O.T. REPORTED THAT HIS SATS WERE AT 88% JUST AFTER GETTING HIM IN CHAIR. NO RESP DISTRESS REPORTED AND DENIED WHEN ASKED TODAY. NAPPING ON AND OFF AND CHATTING WITH ON THE PHONE FREQUENTLY. ORIENTATION SEEMS MORE STABLE TODAY.
--- NOTE | 2021-03-16 03:48 | NUR ---
PATIENT HAS HAD A GOOD NIGHT WITHOUT COMPLAINTS OF PAIN OR DISCOMFORT. CONTINUES ON IV ABX WITHOUT S/SX ADVERSE REACTIONS NOTED OR REPORTED. PATIENT HAS BEEN WEANED DOWN TO 5L O2 NC AND IS MAINTAINING O2 SATS. MELATONIN GIVEN AT HS AND PATIENT HAS HAD MUCH MORE SUCCESS WITH SLEEPING TONIGHT. CALL LIGHT WITHIN REACH.
--- NOTE | 2021-03-16 19:35 | NUR ---
SHIFT SUMMARY NO ACUTE CHANGES THIS SHIFT. PT UP TO CHAIR FOR MOST OF THE DAY. PT EAGER TO BE DISCHARGED HOME. IV PATENT AND SALINE LOCKED. DENIES PAIN, SOB AND NV. ON 5L VIA HFNC. BED IN LOW POSITION, CALL LIGHT WITHIN REACH. BP LOW THIS AM, BP MED HELD, PARAMETERS PLACED IN EMAR.
--- NOTE | 2021-03-17 05:42 | NUR ---
SHIFT SUMMARY 80 YR M ADMITTED ON 03/05/21 FOR PSEUDOMONOUS PNEUMONIA. PT EXPRESSES DESIRE TO GO HOME HE HAS BEEN HERE FOR NEARLY 2 WEEKS. HIS FACETIMES HIM DAILY AND HE APPEARS TO BE IN GOOD SPIRITS WHEN HE SPEAKS WITH HER. PT WILL DISCHARGE SOON ARRANGEMENTS ARE MADE FOR FINISHING HIS ABX COURSE. HE DID NOT SLEEP MUCH AT ALL THIS SHIFT BUT HE WAS PLEASANT AND HAD A GOOD DEMEANOR.
--- NOTE | 2021-03-17 17:41 | NUR ---
DAY SHIFT SUMMARY 80 YR OLD MALE WITH SEVERE SEPSIS AND PSEUDOMONAS. PT ALSO HAS ORAL THRUSH AND FUNGAL RASH TO FOLDS/GROIN. MEDICATED PER EMAR. STATES PT TO DC HOME WHEN ARANGEMENTS ARE MADE TO FINISH PLANNED IV ABX COURSE. CALL LIGHT WITHIN REACH OF PT. PT ABLE TO GET UP TO BEDSIDE CHAIR FOR LUNCH TODAY. PT IS A HEAVY 2 PERSON ASSIST. NO ACUTE CHANGES WITH PT THIS SHIFT.
--- NOTE | 2021-03-17 22:47 | NUR ---
2130 HRS PT FOUND TO HAVE SBP IN 80'S. DR RODRIGUEZ CALLED AND ORDERED 500ML BOLUS AND 1 LITER OF NS. PT NOT SYMPTOMATIC. WCTM.
--- NOTE | 2021-03-18 05:36 | NUR ---
SHIFT SUMMARY ASSUMED CARE OF PATIENT. HE IS RESTING IN BED COMFORTABLY. ASSESSMENT COMPLETED. SNACK PROVIDED AT PATIENTS REQUIEST. REMAINS ON 3L NC. NO SIGINIFICANT EVENTS OVERNIGHT.
[2021-03-18 08:06] LABS: Hematocrit 30.7 % (37.0-53.0); Hemoglobin 9.9 g/dL (13.5-17.5)
[2021-03-18 08:28] LABS: Anion Gap 6 mmol/L (6-16); Blood Urea Nitrogen 16 mg/dL (8-24); Bun/Creatinine Ratio 19.3 (12.0-20.0); CO2, Blood 28 mmol/L (21-32); Calcium, Blood 8.3 mg/dL (8.5-10.1); Chloride, Blood 103 mmol/L (98-108); Creatinine, Blood 0.83 mg/dL (0.60-1.20); Glomerular Filtration Rate >60 (60-); Glucose, Blood 90 mg/dL (70-99); Potassium, Blood 3.9 mmol/L (3.5-5.5); Sodium, Blood 137 mmol/L (136-145)
--- NOTE | 2021-03-18 13:18 | NUR ---
theraputic visit with pt to help him call his . Reviewed with setting up a plan of care that is safe. updated care managers.
--- NOTE | 2021-03-18 17:38 | NUR ---
SHIFT SUMMARY PATIENT DENIES PAIN, NAUSEA, AND SHORTNESS OF BREATH. PATIENT WAS TITRATED TO ROOM AIR. PATIENT MAINTAINING SATURATIONS ABOVE 93%. PATIENT IS A 2 PERSON MAX ASSIST. PATIENT UP TO CHAIR TODAY. PATIENT WORKED WITH PT AND OT TODAY. PATIENT SLEPT MOST OF AFTERNOON DUE TO BEING TIRED AFTER THERAPY. PATIENT VERY FORGETFUL TODAY. DID NOT REMEMBER HE WAS IN THE HOSPITAL, ASKED THE SAME QUESTION MULTIPLE TIMES. PATIENT IS EATING AND DRINKING WELL. PATIENT IS PLEASANT AND COOPERATIVE WITH CARE.
--- NOTE | 2021-03-19 06:21 | NUR ---
Patient alert and oriented x3, forgets place. Patient is max assist. Patient was upset because he thought he was going home today. Patient's called and gave her updates. Patient does not complain of pain. But he is feeling anxious, PRN medication given. Patient had a hard time sleeping, melatonin given. Patient fell asleep after. No signs of distress. Call light within reach.
[2021-03-19 06:22] LABS: Hematocrit 28.5 % (37.0-53.0); Mean Corpuscular HGB 28.1 pg (26.0-34.0); Mean Corpuscular HGB Conc 31.6 g/dL (31.5-36.5); Mean Corpuscular Volume 89 fL (80-100); Mean Platelet Volume 11.4 fL (9.1-12.4); Platelet Count 271 K/mm3 (150-400); RDW Coefficient Variation 16.8 % (11.7-14.2); RDW Standard Deviation 52.4 fL (35.1-46.3); White Blood Cell Count 15.66 K/mm3 (4.00-11.30)
[2021-03-19 06:52] LABS: Percent Saturation 13.6 % (20.0-50.0)
--- NOTE | 2021-03-19 17:43 | NUR ---
SHIFT SUMMARY PATIENT DENIES PAIN, NAUSEA, AND SHORTNESS OF BREATH. PATIENT IS ON 1L VIA N/C AND SATURATING ABOVE 94%. PATIENT IS A 2 PERSON MAX ASSIST FOR TRANSFERS. PATIENT DID NOT WANT TO GET OUT OF BED TODAY. PATIENT BP THIS AFTERNOON WAS 80/57. DR. BARRIENTOS NOTIFIED. NEW ORDERS TO DISCONTINUE METOPROLOL AND DO A 500ML BOLUS. WILL RECHECK. PATIENT IS EATING AND DRINKING WELL. PATIENT IS PLEASANT AND COOPERATIVE WITH CARE.
--- NOTE | 2021-03-20 06:31 | NUR ---
Patient is alert and oriented x3 sometimes forgets place. patient's blood pressure was low at SBP of 80s and DBP of 60s. MD aware. 1L bolus ordered. patient's blood pressure came up to baseline. No signs or symptoms of hypotension. patient was awake and talking when his BP was low. Patient was in and out of sleep. melatonin given. patient had 2x BM. call light within reach.
--- NOTE | 2021-03-20 17:13 | NUR ---
SHIFT SUMMARY PATIENT DENIES PAIN, NAUSEA, AND SHORTNESS OF BREATH. PATIENT IS ON 1L, SATURATING AT 95%. PATIENT IS A 2 PERSON MAX ASSIST FOR TRANSFERS. PATIENT BLOOD PRESSURE BETTER THIS AFTERNOON. PATIENT TO DISCHARGE SUNDAY, WILL NEED POWERGLIDE DRESSING CHANGED BEFORE DISCHARGE. PATIENT IS EATING AND DRINKING WELL. PATIENT REALLY ENJOYS ROOT BEER FLOATS. PATIENT IS PLEASANT AND COOPERATIVE WITH CARE.
--- NOTE | 2021-03-21 05:58 | NUR ---
Patient is alert and oriented x3, seldom forgets time. He is pleasant and can assist with turns. He is able to call and ask for help and let his needs be known. Provided snacks and drinks before bedtime. Patient is in and out of sleep. Call light within reach.
[2021-03-21 06:18] LABS: Hemoglobin 9.2 g/dL (13.5-17.5); Mean Corpuscular HGB 28.8 pg (26.0-34.0); Mean Corpuscular HGB Conc 32.9 g/dL (31.5-36.5); Mean Corpuscular Volume 88 fL (80-100); Mean Platelet Volume 11.8 fL (9.1-12.4); Platelet Count 247 K/mm3 (150-400); RDW Coefficient Variation 17.2 % (11.7-14.2); RDW Standard Deviation 53.1 fL (35.1-46.3); White Blood Cell Count 12.53 K/mm3 (4.00-11.30)
[2021-03-21 06:42] LABS: Anion Gap 9 mmol/L (6-16); Blood Urea Nitrogen 20 mg/dL (8-24); Bun/Creatinine Ratio 27.3 (12.0-20.0); CO2, Blood 26 mmol/L (21-32); Calcium, Blood 8.5 mg/dL (8.5-10.1); Chloride, Blood 102 mmol/L (98-108); Creatinine, Blood 0.73 mg/dL (0.60-1.20); Glomerular Filtration Rate >60 (60-); Glucose, Blood 92 mg/dL (70-99); Sodium, Blood 137 mmol/L (136-145)
--- NOTE | 2021-03-21 18:19 | NUR ---
NO ACUTE CHANGES AT THIS TIME PT DOING WELL. PT WAS ABLE TO HAVE PHYSICAL THERAPY GET HIM UP TO BED AND HE HAS INSISTED ON STAYING UP IN CHAIR EVEN AFTER DINNER WAS DONE. PT IS ABLE TO MAKE NEEDS KNOWN AND CALLS APPROPRIATELY. AOX3 WITH SOME MILD CONFUSION. NO DISTRESS NOTED. WILL CONTINUE TO MONITOR.
[2021-03-22 05:41] LABS: Albumin, Blood 2.4 g/dL (3.4-5.0); Anion Gap 8 mmol/L (6-16); Blood Urea Nitrogen 25 mg/dL (8-24); Bun/Creatinine Ratio 31.9 (12.0-20.0); CO2, Blood 25 mmol/L (21-32); Calcium, Blood 8.7 mg/dL (8.5-10.1); Chloride, Blood 102 mmol/L (98-108); Creatinine, Blood 0.78 mg/dL (0.60-1.20); Glomerular Filtration Rate >60 (60-); Glucose, Blood 99 mg/dL (70-99); Phosphorus, Blood 3.3 mg/dL (2.5-4.9); Potassium, Blood 4.1 mmol/L (3.5-5.5); Sodium, Blood 135 mmol/L (136-145)
--- NOTE | 2021-03-22 06:23 | NUR ---
PM SHIFT SUMMARY PATIENT REMAINS ON 1L O2 NC AND CONTINUES TO HAVE 02 SAT IN THE 93-95% RANGE. MELATONIN SEEMED TO HELP HIM GET A BIT OF REST DURING THE EVENING. HE IS HOPING TO DC HOME TODAY WITH ABX. HE HAS NO COMPLAINTS AT THIS TIME.
--- NOTE | 2021-03-22 14:51 | NUR ---
Patient now has discharge orders entered. Gathered all supporting documentation for referral (face sheet, face to face, med list, H&P, discharge summary, and most recent PT assessment) and sent to [facility] for review. Attempted to contact patient's (Megha Pagan) today- 03/22/2021 at 1447 to confirm that patient's IV ABX have been delivered. Left message asking for to return this press writer's call. No further interventions required. Chika Gorman Referral Liaison
[2021-03-22] MEDS ORDERED: GUAI600T33 PO (15:23)
[2021-03-22] MEDS ORDERED: MELATONIN5 M1 PO (15:24)
[2021-03-22] MEDS ORDERED: ANTIFUNGAL POWD71 GM TOP (15:25)
[2021-03-22] MEDS ORDERED: TAZICEF2 G2 IV (15:26)
[2021-03-22] MEDS ORDERED: PRED5 PO (15:29)
[2021-03-22] MEDS ORDERED: VISBIOME 112.51 EACH PO (15:29)
--- NOTE | 2021-03-22 17:59 | NUR ---
PT DISCHARGED AT 1725 WITH TO TRANSPORT. ALL PAPERWORK REVIEWED AND EDUCATIONAL MATERIAL SENT WITH PT. PT DOING WELL TODAY ON 1-2 L O2. TRANPORTABLE O2 TANK WAS RECIEVED IN PT'S ROOM PRIOR TO DISCHARE. PT DENIED PAIN AND WAS RESTING COMFORTABLY MOST OF THE DAY. PT WAS A TWO PERSON WITH GAIT BELT TRANSFER TO WHEEL CHAIR. PT DID WELL. MEDICATION [facility]XED TO [facility] PER [facility] REQUEST. NO DISTRESS NOTED. HOME HEALTH TO MEET TOMORROW WITH THEM.
== END 2021-03-22 17:25 | disposition home health service (06) | DRG 871 ==
LOC: ER 03:08 → ERHOLD 05:12 → MEDS 05:12 → PCU 15:32 → MEDS 03-07 10:45
PROVIDERS: Family Medicine; Internal Medicine; Student in an Organized Health Care Education/Training Program; ADMIT Internal Medicine
PROC: 5A09357 Assistance with Respiratory Ventilation, Less than 24 Consecutive Hours, Continuous Positive Airway Pressure (ICD-10-PCS; principal; 2021-03-05)
DX: A41.52 Sepsis due to Pseudomonas (principal); J15.1 Pneumonia due to Pseudomonas; J96.21 Acute and chronic respiratory failure with hypoxia; J44.1 Chronic obstructive pulmonary disease with (acute) exacerbation; J44.0 Chronic obstructive pulmonary disease with (acute) lower respiratory infection; J84.9 Interstitial pulmonary disease, unspecified; Z20.822 Contact with and (suspected) exposure to COVID-19; R65.20 Severe sepsis without septic shock; R60.0 Localized edema; K22.89 Other specified disease of esophagus; I48.0 Paroxysmal atrial fibrillation; G31.84 Mild cognitive impairment of uncertain or unknown etiology; D63.8 Anemia in other chronic diseases classified elsewhere; K21.9 Gastro-esophageal reflux disease without esophagitis; I10 Essential (primary) hypertension; F17.210 Nicotine dependence, cigarettes, uncomplicated; Z85.828 Personal history of other malignant neoplasm of skin; Z85.46 Personal history of malignant neoplasm of prostate; Z90.49 Acquired absence of other specified parts of digestive tract; Z98.890 Other specified postprocedural states; Z28.21 Immunization not carried out because of patient refusal; Z79.899 Other long term (current) drug therapy
CPT/HCPCS: 0241U; 36415; 36600; 71045; 71250; 71260; 80048; 80053; 80069; 82728; 82803; 83540; 83550; 83605; 83880; 84145; 84484; 85014; 85018; 85025; 85027; 85379; 87070; 87077; 87186; 87205; 92507; 92523; 92526; 92610; 93005; 93010; 93970; 94640; 94644; 94660; 94664; 94667; 94668; 94760; 94761; 94762; 96374; 96375; 97110; 97116; 97129; 97162; 97166; 97530; 97535; 99285-25; A9270; J0456; J0696; J0713; J1650; J2543; J2930; J7030; J7040; J7050; J7512; Q9967

== ENCOUNTER 2021-09-15 02:25 | Inpatient (IN) | payer OTHER ==
[~2021-09-15] VITALS: Ht 160 cm; Wt 60.3 kg
[~2021-09-15 02:25] MED LIST changes: +ADVIL COLD; +ANTIFUNGAL POWD71 GM TOP; +AZELASTINE137 MCG/06 NS; +Acetaminophen650 M1 PO; +BREO ELLIPTA 11 EAC1 INH; +CILOSTAZOL50 M1 PO; +GUAI600T33 PO; +MELATONIN5 M1 PO; +MOXIOPS BOTHEYES; +PRED5 PO; +TAZICEF2 G2 IV; +VISBIOME 112.51 EACH PO; +XANAX0.25 MG PO; +[UNRECOGNIZED DRUG - OTHER]
[2021-09-15 02:52] LABS: BASOPHILS ABSOLUTE AUTO 0.05 K/mm3 (0.00-0.23); BASOPHILS PERCENT AUTO 0 % (0-2); EOSINOPHILS ABSOLUTE AUTO 0.03 K/mm3 (0.00-0.68); EOSINOPHILS PERCENT AUTO 0 % (0-6); Hematocrit 44.5 % (37.0-53.0); IMMATURE GRAN ABSOLUTE AUTO 0.11 K/mm3 (0.00-0.10); IMMATURE GRAN PERCENT AUTO 1 % (0-1); LYMPHOCYTES PERCENT AUTO 3 % (21-46); MONOCYTES ABSOLUTE AUTO 1.59 K/mm3 (0.16-1.47); MONOCYTES PERCENT AUTO 8 % (4-13); Mean Corpuscular HGB 27.9 pg (26.0-34.0); Mean Corpuscular HGB Conc 33.7 g/dL (31.5-36.5); Mean Corpuscular Volume 83 fL (80-100); Mean Platelet Volume 10.2 fL (9.1-12.4); NEUTROPHILS ABSOLUTE AUTO 17.13 K/mm3 (1.96-9.15); NEUTROPHILS PERCENT AUTO 88 % (41-73); Platelet Count 224 K/mm3 (150-400); Red Blood Cell Count 5.37 M/mm3 (4.30-5.90); White Blood Cell Count 19.41 K/mm3 (4.00-11.30)
[2021-09-15 03:03] LABS: Base Excess Venous -2.9 mmol/L; Bicarbonate Venous 21.2 mmol/L (24.0-30.0); PCO2 Venous 45.6 mmHg (38-42); pH Blood Venous 7.32 (7.34-7.37)
[2021-09-15 03:07] LABS: Bun/Creatinine Ratio 26.4 (12.0-20.0); Calcium, Blood 8.5 mg/dL (8.5-10.1); Creatinine, Blood 0.72 mg/dL (0.60-1.20); Potassium, Blood 4.2 mmol/L (3.5-5.5)
[2021-09-15 03:29] LABS: Influenza A, PCR NEGATIVE (NEGATIVE); Influenza B, PCR NEGATIVE (NEGATIVE); Resp Syncytial Virus, PCR NEGATIVE (NEGATIVE); SARS-Cov-2 (COVID-19) PCR, MMC NEGATIVE (NEGATIVE)
--- NOTE | 2021-09-15 06:37 | NUR ---
CARE ASSUMPTION/ SHIFT SUMMARY PT ARRIVED TO THE UNIT W 02 SATS >92% ON BIPAP 12/6 W AND 30% FIO2. BP WNL. TELE SHOWING SR IN THE 80'S W PVC'S. RR <20. PT DENYING ANY PAIN OR NAUSEA AT THIS TIME. WILL REPORT TO ONCOMING RN
[2021-09-15 08:33] LABS: Base Excess Venous -5.5 mmol/L; Bicarbonate Venous 20.6 mmol/L (24.0-30.0); PCO2 Venous 31.9 mmHg (38-42); pH Blood Venous 7.39 (7.34-7.37)
--- NOTE | 2021-09-15 10:00 | NUR ---
PATIENT UPDATE PATIENT WAS DEPENDENT ON BIPAP AT 12/6 WITH 30% FIO2 AT BEGINNING OF SHIFT AND ASSUMPTION OF CARE AT 0700 THIS AM. UPON PT REQUEST TO EAT, WITH ASSISTANCE FROM SHARIF LA, PT WAS TAKEN OFF THE BIPAP AND PUT ONTO 4L VIA NASAL CANULA. PT IS TOLERATING WELL AND MAINTAINING SATS 90-92% WITH RR <20. WILL CONTINUE TO MONITOR FOR INTOLERANCE AND NEED TO BE PLACED BACK ONTO THE BIPAP DUE TO DESATS OF O2. PT VERBALIZED COMFORT, BED IN LOWEST POSITION AND CALL LIGHT WITHIN REACH.
--- NOTE | 2021-09-15 13:37 | NUR ---
PT NOTED TO HAVE INCREASINGLY COARSE LUNG SOUNDS, PT IS AGREEABLE TO HAVE THE BIPAP MASK PLACED ON HIM. PT UNABLE TO USE URINAL STS UNABLE TO START URINE FLOW, PT OFFERED CATHETERIZATION BUT REFUSED, BLADDER SCAN PERFORMED PT WITH 500ML URINE IN BLADDER HE AGAIN ATTEMPTED TO USE URINAL WITHOUT SUCCESS BUT CONTINUES TO REFUSE CATHETERIZATION DESPITE EDUCATION. PT TOLERATING BIPAP WILL, WILL CONTINUE TO OFFER URINAL
--- NOTE | 2021-09-15 14:21 | NUR ---
LUNGS CONTINUE TO BECOME MORE COARSE SOUNDING DESPITE BIPAP USE, VSS, SPO2 >94% ON BIPAP. DR COLLINS CALLED, NEW ORDERS OBTAINED FOR BNP. WILL CONTINUE TO MONITOR AND KEEP MD UPDATED
--- NOTE | 2021-09-15 17:18 | NUR ---
SHIFT SUMMARY PATIENT IS A&O X4. CALM AND COOPERATIVE WITH CARE. PT CONTINUES TO BE ON THE BIPAP / WITH 30% FIO2. IMPROVEMENT IN RESPIRATORY RATE NOTED PATIENT SPENDS MORE TIME ON THE BIPAP; RR 20-22. O2 SATS HAVE IMPROVED TO 96%. SBP 100-110S. NSR WITH OCCASIONAL PVCs 80-90S. PATIENT EDUCATION PROVIDED FOR THE NEED TO KEEP THE BIPAP ON TO STABALIZE BREATHING BEFORE WE CAN TRY THE NASAL CANULA AGAIN SO THAT HE CAN EAT DINNER. PATIENT VERBALIZES UNDERSTANDING. PATIENT HAS URINARY RETENTION, WHICH THE PATIENT AND SPOUSE STATES ARE NORMAL FOR HIM. PATIENT WAS ABLE TO VOID EARLIER BUT WILL CONTINUE TO MONITOR WITH BLADDER SCAN FOR COMPLICATIONS. PATIENT HAS BILATERAL ELBOW LACS THAT WERE FROM A PREVIOUS FALL AND ARE DRESSED WITH A DRESSING FROM HOME. PATIENT CURRENTLY CANNOT TOLERATE DRESSING CHANGE DUE TO RESPIRATORY STATUS. PATIENT HAS TRACE EDEMA NOTED IN BLE. LACTIC ACID OF 2.8; MD NOTIFIED WITH CRITICAL VALUE DOCUMENTATION DONE. NO ADDITIONAL ORDERS AT THIS TIME DUE TO CURRENT INTERVENTIONS. SCDs AT FOOT OF BED; HOWEVER, PT REFUSED PLACEMENT DESPITE TEACHING. BED IN LOWEST POSITION AND CALL LIGHT WITHIN REACH. FREQUENT CHECKS FOR SAFETY. BED ALARM ON. WILL CONTINUE TO MONITOR FOR CHANGES IN CONDITION UNTIL SHIFT CHANGE AT 1900.
--- NOTE | 2021-09-15 18:08 | NUR ---
NO NEW ORDERS FROM DR COLLINS WHEN UPDATED ON CRITICAL LACTIC ACID OF 2.8. PT TAKEN OFF OF BIPAP AND PLACED ON TO NASAL CANNULA TO EAT DINNER, BIPAP WILL BE REPLACED SOON PT IS COMPLETED WITH DINNER TRAY. PT REMAINS WITH COARSE LUNG SOUNDS WITH PROLONED EXPIRATION BOTH ON AND OFF BIPAP.
--- NOTE | 2021-09-15 18:39 | NUR ---
PT UPDATE PT PLACED BACK ON BIPAP ON 01/10 AND 30% FIO2. PT WAS PREVIOUSLY ON 4L NASAL CANULA TO EAT DINNER, WITH NOTED DESATS TO 85%. PATIENT TOLERATING BIPAP WELL WITH INCREASED SPO2 >92%. GEL PAD IN PLACE ON BRIDGE OF NOSE TO HELP PREVENT BREAKDOWN. PADDED DRESSING PLACED ON BILATERAL ELBOWS DUE TO ABRASIONS FROM FALL IN THE PAST WEEK AND TO ASSIST WITH PADDING PATIENT USES ELBOWS TO POSITION SELF IN TRIPOD/HIGH FOWLERS POSITIONS. BED IN LOWEST POSITION, CALL LIGHT IN REACH, BED ALARM ON.
[2021-09-16 04:07] LABS: Hematocrit 38.6 % (37.0-53.0); Mean Corpuscular HGB 27.9 pg (26.0-34.0); Mean Corpuscular HGB Conc 33.7 g/dL (31.5-36.5); Mean Corpuscular Volume 83 fL (80-100); Mean Platelet Volume 11.1 fL (9.1-12.4); Platelet Count 215 K/mm3 (150-400); RDW Standard Deviation 60.7 fL (35.1-46.3); Red Blood Cell Count 4.66 M/mm3 (4.30-5.90); White Blood Cell Count 12.59 K/mm3 (4.00-11.30)
[2021-09-16 04:26] LABS: BAND PERCENT MAN 3 % (0-8); BASOPHILS PERCENT MAN 0 % (0-2); EOSINOPHILS PERCENT MAN 0 % (0-6); LYMPHOCYTES ABSOLUTE MAN 0.25 K/mm3 (0.84-5.20); LYMPHOCYTES PERCENT MAN 2 % (21-46); MONOCYTES ABSOLUTE MAN 0.88 K/mm3 (0.16-1.47); MONOCYTES PERCENT MAN 7 % (4-13); MYELOCYTE ABSOLUTE MAN 0.12 K/mm3 (0.00-0.00); MYELOCYTE PERCENT MAN 1 % (0-0); NEUTROPHILS ABSOLUTE MAN 11.33 K/mm3 (1.96-9.15); SEG NEUTROPHILS PERCENT MAN 87 % (41-73); TOTAL CELLS COUNTED 100
[2021-09-16 04:28] LABS: Albumin, Blood 2.8 g/dL (3.4-5.0); Albumin/Globulin Ratio 0.8 (0.8-1.8); Bilirubin, Total 0.4 mg/dL (0.1-1.0); Calcium, Blood 8.5 mg/dL (8.5-10.1); Creatinine, Blood 0.64 mg/dL (0.60-1.20); Globulin, Blood 3.7 g/dL (2.2-4.0); Potassium, Blood 4.3 mmol/L (3.5-5.5); Total Protein, Blood 6.5 g/dL (6.4-8.2)
--- NOTE | 2021-09-16 06:01 | NUR ---
SHIF SUMMARY ASSUMED CARE OF PT AT 1900. PT IS A/OX4. HEART SOUNDS REGULAR. LUNG SOUNDS VERY COURSE WITH EXPIRATORY WHEEZES. PT REMAINED ON THE BIPAP T/O THE NIGHT BUT CAN TOLERATE ON 6L NC TO TALK ON THE PHONE AND EAT. PT HAS AN EXCESS AMOUNT OF SILIVA AND HAD TO USE SUCTION OFTEN. PT WAS INCONTINENT OF URINE T/O THE NIGHT. PT HAS CUTS AND BRUISING ALL OVER. LOWER EXTREMITES DISCOLORED WITH FAINT PULSES. PT HAD NO NEW COMPLAINTS.
--- NOTE | 2021-09-16 14:22 | NUR ---
PATIENT UPDATE PATIENT COMPLAINED OF "GAS PAIN" IN STOMACH AND ASKED THIS NURSE FOR SOMETHING FOR THE PAIN. CALL PLACED TO MD COLLINS, NEW ORDERS FOR PRN SIMETHICONE.
--- NOTE | 2021-09-16 17:51 | NUR ---
SHIFT SUMMARY PATIENT CALM AND COOPERATIVE WITH CARE DURING THIS SHIFT. PATIENT IS A&OX4 WITH BRIEF MOMENTS OF CONFUSION WITH REPETITIVE QUESTIONS AND CHILDLIKE MENTATION. VSS. MEDICATED PER EMAR FOR HTN ONCE THIS AFTERNOON. CONTINUED PAIN IN THE BLE/FEET RATING 8-10; MEDICATING PER EMAR. CONTINUED EDEMA AND REDNESS IN RIGHT LEG. PATIENT HAD DIALYSIS THIS AM AT 0900. METAPHYSICS TEACHER SPOKE WITH PATIENT ABOUT THE PLAN TO GET CAREGIVERS SET UP SO SHE CAN BE DC'D HOME WITH MOTHER. PATIENT EXPRESSED HECTOR TO THIS PLAN. PATIENT CHOSE LESS CARBS AND MORE PROTEIN FOODS FOR ALL MEALS WITH LESS NEED FOR INSULIN COVERAGE DURING THE SHIFT. DRESSING ON RIGHT HEEL WOUND DRESSED PER WOUND CARE ORDERS. PATIENT UP IN CHAIR WITH TAB ALARM ON AND CALL LIGHT IN REACH. FREQUENT CHECKS FOR SAFETY.
--- NOTE | 2021-09-16 18:14 | NUR ---
SHIFT SUMMARY PATIENT IS CALM AND COOPERATIVE WITH CARE. A&O X4. CALLS APPROPRIATELY FOR HELP FROM STAFF. PATIENT HAS BEEN ON 4L NASAL CANULA DURING THIS SHIFT WITH O2 SATS 88-94% DEPENDENT ON TALKING/EXERTION. SBP 110S. NSR WITH OCCASIONAL PVCS WITH HR IN THE 80S. RR 20-24. BIPAP CONTINUES TO BE ON STANDBY AT BEDSIDE WITH SETTINGS AT 12/6 AND 30% FIO2. FREQUENT REPOSITIONING DUE TO BACK/NECK PAIN; MEDICATING PER EMAR. PATIENT HAS BEEN EXPERIENCING AN INCREASE IN SECRETIONS THIS SHIFT WITH THE NEED FOR SUCTIONING FREQUENTLY. ECHO WAS DONE AT BEDSIDE THIS AFTERNOON. BED BATH AND LINEN CHANGED DONE THIS MORNING. BED IN LOWEST POSITION WITH BED ALARM ON. CALL LIGHT IN REACH. FREQUENT CHECKS FOR SAFETY
[2021-09-17 04:07] LABS: BASOPHILS ABSOLUTE AUTO 0.01 K/mm3 (0.00-0.23); BASOPHILS PERCENT AUTO 0 % (0-2); EOSINOPHILS PERCENT AUTO 0 % (0-6); Hematocrit 37.9 % (37.0-53.0); Hemoglobin 12.6 g/dL (13.5-17.5); IMMATURE GRAN ABSOLUTE AUTO 0.07 K/mm3 (0.00-0.10); IMMATURE GRAN PERCENT AUTO 1 % (0-1); LYMPHOCYTES ABSOLUTE AUTO 0.42 K/mm3 (0.84-5.20); LYMPHOCYTES PERCENT AUTO 4 % (21-46); MONOCYTES ABSOLUTE AUTO 1.32 K/mm3 (0.16-1.47); MONOCYTES PERCENT AUTO 12 % (4-13); Mean Corpuscular HGB 27.9 pg (26.0-34.0); Mean Corpuscular HGB Conc 33.2 g/dL (31.5-36.5); Mean Corpuscular Volume 84 fL (80-100); Mean Platelet Volume 11.1 fL (9.1-12.4); NEUTROPHILS ABSOLUTE AUTO 9.12 K/mm3 (1.96-9.15); NEUTROPHILS PERCENT AUTO 83 % (41-73); Platelet Count 224 K/mm3 (150-400); RDW Coefficient Variation 19.9 % (11.7-14.2); Red Blood Cell Count 4.52 M/mm3 (4.30-5.90); White Blood Cell Count 10.94 K/mm3 (4.00-11.30)
[2021-09-17 04:26] LABS: Albumin, Blood 2.8 g/dL (3.4-5.0); Anion Gap 9 mmol/L (6-16); Blood Urea Nitrogen 24 mg/dL (8-24); Bun/Creatinine Ratio 44.8 (12.0-20.0); CO2, Blood 23 mmol/L (21-32); Calcium, Blood 8.2 mg/dL (8.5-10.1); Chloride, Blood 102 mmol/L (98-108); Creatinine, Blood 0.54 mg/dL (0.60-1.20); Glomerular Filtration Rate 100 (60-); Glucose, Blood 133 mg/dL (70-99); Phosphorus, Blood 2.5 mg/dL (2.5-4.9); Potassium, Blood 4.4 mmol/L (3.5-5.5); Sodium, Blood 134 mmol/L (136-145)
--- NOTE | 2021-09-17 05:48 | NUR ---
SHIFT SUMMARY ASSUMED CARE OF PT AT 1900. PT IS A/OX4 BUT THIS AM AT AROUND 0330 PT AWOKE CONFUSED AND HTINKING IT WAS DAY TIME. PT C/O FEELING DISORIENTED AND WASNT ABLE TO SLEEP MUCH TONIGHT. HEART SOUNDS REGULAR. LUNG SOUNDS COARSE WITH EXPIRATORY WHEEZE, BUT BETTER THAN YESTERDAYS ASSESSMENT. PT WORE 4L NC T/O THE NIGHT, BUT WILL DESAT WHILE ROLLING IN BED OR EATING. PT HAS AN EXCESS AMOUNT OF SALIVA WHILE EATING. PT WAS INCONTIENT T/O THE NIGHT. PT C/O BACK BACK, LIDOCAINE PATCH ORDERED PER RESIDENT BUT PT STATES THAT HIS BACK STILL HURT ALL NIGHT.
--- NOTE | 2021-09-17 09:04 | NUR ---
AM NOTE: PATIENT ALERT AND ORIENTED, AT TIMES INTERMIT CONFUSION UPON WAKING. OVERALL VERY WEAK AND FRAGILE. 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 PATIENT STATES HE USES WALKER AT HOME TO GET AROUND. ON 4L NASAL CANNULA SATING 88-93%. DESATS WHEN TALKING AND EATING. EXPIRATORY WHEEZE HEARD THROUGHOUT LUNGS, RESPIRATORY IN TO GIVE BREATHING TREATMENTS. PATIENT PRODUCING LOTS OF SECRETIONS, SUCTION AT BEDSIDE. BIPAP ON STANDY AT BEDSIDE. TELE SHOWING SINUS RHYTHM WITH PVC'S THIS AM. HR 60-70'S. DENIES CHEST PAIN/PRESSURE. DENIES ABDOMINAL PAIN/NAUSEA. COMPLAINS OF GAS DISCOMFORT. PRN MEDS GIVEN THIS AM. PATIENT ALSO COMPLAINS OF BACK PAIN, LIDOCAINE PATCH APPLIED WITH GOOD RELIEF. AT BEDSIDE. USING URINAL TO VOID. DENIES NEEDS AT THIS TIME. WILL CONTINUE TO MONITOR.
[2021-09-17] MEDS ORDERED: SPIR25 PO (10:05)
[2021-09-17] MEDS ORDERED: Preservision S1 EACH PO (10:06)
--- NOTE | 2021-09-17 11:09 | NUR ---
DR. COLLINS IN TO SEE PATIENT. THIS RN VOICED CONCERNS OF EXCESS SECRETIONS, NEW ORDERS FOR SPEECH THERAPY WELL PHYSICAL AND OCCUPATIONAL THERAPY. THIS RN REVIEWED AND CORRECTED MED REC WITH . PATIENT USING URINAL TO VOID, GOOD OUTPUT SINCE IV LASIX THIS AM. X1 BOWEL MOVEMENT. TURNING Q2 AND NEEDED. SLEEPING AT THIS TIME. REMAINS ON 4L NASAL CANNULA.
--- NOTE | 2021-09-17 12:08 | NUR ---
PHYSICAL THERAPY IN TO WORK WITH PATIENT, ABLE STAND AT EDGE OF BED WITH FRONT WHEEL WALKER. DESAT TO MID 80'S. ABLE TO RECOVER WITHIN A FEW MIN. SPEECH THERAPY UNABLE TO SEE PATIENT UNTIL SUNDAY. THIS RN TAKING SPEECH PRECAUTIONS SUCH , MEDS IN APPLESAUCE, NO STRAWS, MECH SOFT DIET, UPRIGHT AT 90 DEGREES FOR ALL MEALS AND FREQUENT ORAL CARE. PATIENT EATING LUNCH AT THIS TIME. DENIES NEEDS, CALL LIGHT IN REACH. WILL CONTINUE TO MONITOR.
--- NOTE | 2021-09-17 17:31 | NUR ---
SHIFT SUMMARY: SEE PREVIOUS NOTES FOR UPDATES THROUGHOUT SHIFT. PATIENT REMAINS ON 4L NASAL CANNULA SATING LOW 90'S. DESATS HIGH 80'S WHEN TALKING AND EATING. PT IN TO WORK WITH PATIENT. PATIENT OVERALL VERY WEAK. BILATERAL ELBOW WOUNDS FROM FALL AT HOME CLEANED AND REDRESSED. ANTIBIOTICS INFUSED. TELE REMAINS UNCHANGED. GOOD URINE OUTPUT, USING URINAL. IN TO VISIT THIS AM. PATIENT EATING DINNER AT THIS TIME. PATIENT STATES HE IS FEELING MUCH BETTER TODAY. SLEEPING ON AND OFF THROUGHOUT DAY SHIFT. CALL LIGHT IN REACH. DENIES NEEDS AT THIS TIME. BED IN LOW LOCKED POSITION. WILL CONTINUE TO MONITOR AND REPORT OFF TO ONCOMING RN.
--- NOTE | 2021-09-17 20:48 | NUR ---
ASSUMED CARE ASSUMED CARE OF NURSE CHIN UNTIL 2099. VVS AND MEDCATIONS ADMINISTERED.
[2021-09-18 04:18] LABS: BASOPHILS ABSOLUTE AUTO 0.01 K/mm3 (0.00-0.23); BASOPHILS PERCENT AUTO 0 % (0-2); EOSINOPHILS PERCENT AUTO 0 % (0-6); Hematocrit 41.7 % (37.0-53.0); Hemoglobin 13.5 g/dL (13.5-17.5); IMMATURE GRAN ABSOLUTE AUTO 0.09 K/mm3 (0.00-0.10); IMMATURE GRAN PERCENT AUTO 1 % (0-1); LYMPHOCYTES ABSOLUTE AUTO 0.55 K/mm3 (0.84-5.20); LYMPHOCYTES PERCENT AUTO 4 % (21-46); MONOCYTES ABSOLUTE AUTO 1.55 K/mm3 (0.16-1.47); MONOCYTES PERCENT AUTO 10 % (4-13); Mean Corpuscular HGB 27.2 pg (26.0-34.0); Mean Corpuscular HGB Conc 32.4 g/dL (31.5-36.5); Mean Corpuscular Volume 84 fL (80-100); Mean Platelet Volume 10.7 fL (9.1-12.4); NEUTROPHILS ABSOLUTE AUTO 13.51 K/mm3 (1.96-9.15); NEUTROPHILS PERCENT AUTO 86 % (41-73); Platelet Count 251 K/mm3 (150-400); RDW Coefficient Variation 19.9 % (11.7-14.2); RDW Standard Deviation 60.6 fL (35.1-46.3); Red Blood Cell Count 4.97 M/mm3 (4.30-5.90); White Blood Cell Count 15.71 K/mm3 (4.00-11.30)
[2021-09-18 04:32] LABS: Albumin, Blood 2.9 g/dL (3.4-5.0); Anion Gap 8 mmol/L (6-16); Blood Urea Nitrogen 23 mg/dL (8-24); Bun/Creatinine Ratio 41.3 (12.0-20.0); CO2, Blood 27 mmol/L (21-32); Calcium, Blood 8.2 mg/dL (8.5-10.1); Chloride, Blood 99 mmol/L (98-108); Creatinine, Blood 0.56 mg/dL (0.60-1.20); Glomerular Filtration Rate 98 (60-); Glucose, Blood 119 mg/dL (70-99); Potassium, Blood 4.7 mmol/L (3.5-5.5); Sodium, Blood 134 mmol/L (136-145)
--- NOTE | 2021-09-18 05:42 | NUR ---
NOC SHIFT SUMMARY ASSUMED CARE OF PT @2100. PT SLEPT WELL OVERNIGHT, ON 4LNC. NO COMPLAINTS OF PAIN OR DISCOMFORT. VSS PER PT TREND. COARSE SOUNDS IN LOWER LUNGS. SECRETIONS/DROOLING NOTED AND PLANS FOR SPEECH EVAL ON SUNDAY. SUCTION AT BEDSIDE. PT UPDATED ON PLAN OF CARE. WILL CONTINUE TO MONITOR AND PASS ON TO DAY RN
--- NOTE | 2021-09-18 14:41 | NUR ---
SHIFT SUMMARY ASSUMED CARE AT 0645 PT A&O X4, PLEASANT AND COOPERATIVE DURING CARE. VSS; SR W/HR IN 70'S, SBP 120S-140'S. O2 SATS REMAINED WITHIN 88%-92% on 4L VIA NC. DYSPNEA NOTED UPON EXERTION. PT DENIES SOB, CHEST PAIN OR CHEST PRESSURE. IV PATENT AND FLUSHING. SUCTION AT BEDSIDE. SMALL AMOUNT OF SECRETION NOTED, NO SUCTION NEEDED DURING SHIFT. CRACKLES AND COURSE LUNG SOUNDS NOTED. PT HAD WET, COUGH. PT STATES THAT IS "NORMAL IN THE MORNINGS" AND "IS IMPROVING FROM A FEW DAYS AGO". GENERAL WEAKNESS NOTED; PT SLEPT ON AND OFF THROUGHOUT SHIFT. PT TOLERATED MEALS WELL. MEDICATIONS TOLERATED WELL WHOLE IN APPLESAUCE. PT DECLINED NICOTINE PATCH AND LIDOCAINE PATCH. PT REPORTED NECK PAIN 07/15 AND REQUESTED REPOSITIONING AND TYLENOL; MEDICATED PER EMAR. PT USING URINAL WITH GOOD URINE OUPUT. ONE INCONTINENT BOWEL DURING SHIFT. ATTENDS CHANGED AND FULL LINEN CHANGE COMPLETED. PT UP TO BEDSIDE CHAIR FOR LUNCH W/ 2 PERSON ASSSIST. PT TOLERATED FAIR, MILD DYSPNEA NOTED O2 SATS REMAINED 88%-90%. PT STATED "THAT WAS A WORKOUT AND MADE HIM A LITTLE TIRED" BUT WAS GLAD TO BE UP OUT OF BED. 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 PT STATED THIS IS "NORMAL SOMETIMES". DRESSINGS ON ELBOWS AND SKIN TEARS CLEAN, DRY AND INTACT. SPEECH CONSULT FOR AM. AT BEDSIDE AND HELPFUL. PATIENT AND EXPRESSED CONCERN ABOUT RECOMMENDATION FOR SNF, BOTH WOULD LIKE THE PATIENT TO RETURN HOME WITH HOMEHEALTH OR OTHER SUPPORT. REQUESTED TO TALK WITH PT OR PROVIDER ABOUT THIS RECOMMENDATION. TRANSFERRED TO MEDICAL FLOOR, REPORT GIVEN TO JNONATHAN FARLEY RN.
--- NOTE | 2021-09-18 18:22 | NUR ---
SHIFT SUMMARY PT A&OX4 AND IN PLEASENT MOOD SINCE ARRIVAL TO UNIT. PT TOLERATING PO INTAKE. PAIN MEDICATED PER EMAR. SPOKE TO ON PHONE, PLAN FOR HER TO COME IN THE MORNING. CALL LIGHT W/IN REACH. VSS. RESTING IN RECLINER. TELE IN PLACE.
--- NOTE | 2021-09-19 03:19 | NUR ---
INSPECTOR AND HAND PACKAGER SUMMARY WAS ASSISTED TO BED FROM BEDSIDE CHAIR AT . SOME SOB AFTER GETTING IN BED. O2 PER NC AT 4L/MIN. HOB ELEVATED AT 45 DEGREES. VSS. ASSISTED WITH DAILY ACTIVITIES. USES URINAL WITHOUT ASSIST. CALL LIGHT IN REACH. HAS BEEN RESTING QUIETLY WITH FEW INTERRUPTIONS. NO NOTED S/S ACUTE DISTRESS. WILL CONTINUE TO MONITOR
[2021-09-19 04:50] LABS: BASOPHILS ABSOLUTE AUTO 0.02 K/mm3 (0.00-0.23); BASOPHILS PERCENT AUTO 0 % (0-2); EOSINOPHILS ABSOLUTE AUTO 0.04 K/mm3 (0.00-0.68); EOSINOPHILS PERCENT AUTO 0 % (0-6); Hematocrit 44.7 % (37.0-53.0); Hemoglobin 14.5 g/dL (13.5-17.5); IMMATURE GRAN ABSOLUTE AUTO 0.15 K/mm3 (0.00-0.10); IMMATURE GRAN PERCENT AUTO 1 % (0-1); LYMPHOCYTES ABSOLUTE AUTO 2.15 K/mm3 (0.84-5.20); LYMPHOCYTES PERCENT AUTO 12 % (21-46); MONOCYTES ABSOLUTE AUTO 2.77 K/mm3 (0.16-1.47); MONOCYTES PERCENT AUTO 16 % (4-13); Mean Corpuscular HGB 27.7 pg (26.0-34.0); Mean Corpuscular HGB Conc 32.4 g/dL (31.5-36.5); Mean Corpuscular Volume 86 fL (80-100); Mean Platelet Volume 10.4 fL (9.1-12.4); NEUTROPHILS ABSOLUTE AUTO 12.77 K/mm3 (1.96-9.15); NEUTROPHILS PERCENT AUTO 71 % (41-73); Platelet Count 217 K/mm3 (150-400); RDW Coefficient Variation 19.8 % (11.7-14.2); RDW Standard Deviation 60.4 fL (35.1-46.3); Red Blood Cell Count 5.23 M/mm3 (4.30-5.90)
[2021-09-19 05:12] LABS: Albumin, Blood 2.8 g/dL (3.4-5.0); Anion Gap 6 mmol/L (6-16); Blood Urea Nitrogen 24 mg/dL (8-24); Bun/Creatinine Ratio 42.4 (12.0-20.0); CO2, Blood 28 mmol/L (21-32); Calcium, Blood 8.3 mg/dL (8.5-10.1); Chloride, Blood 98 mmol/L (98-108); Creatinine, Blood 0.57 mg/dL (0.60-1.20); Glomerular Filtration Rate 98 (60-); Glucose, Blood 89 mg/dL (70-99); Phosphorus, Blood 2.6 mg/dL (2.5-4.9); Potassium, Blood 4.8 mmol/L (3.5-5.5); Sodium, Blood 132 mmol/L (136-145)
--- NOTE | 2021-09-19 12:19 | NUR ---
7 beat run of V-TAC- Sinus at 89 with pvc's after a 7 beat run of vtac was noted by tele at 1211. Pt in bed, denies cp or sob at this time. No current s&s of distress noted. bp 154/100 resp rate 20 o2 sats freater than 90%, chargemaster specialist notified. Will ctm
--- NOTE | 2021-09-19 12:57 | NUR ---
8 BEAT RUN OF VTACH REPORTED BY TANK MAKER WOOD, VSS. DENIES CP/PRESSURE, ATTEMPTED TO CALL DR. PINEDO AND NOTIFY-NO ANSWER
--- NOTE | 2021-09-19 17:49 | NUR ---
SHIFT SUMMARY PT A&OX4 AND IN PLEASENT MOOD T/O SHIFT. IN TO SEE PT IN AM HOURS. BANDAGES REMOVED FROM ARMS, ONE BANDAGE APPLIED TO SM. SKIN TEAR ON R ELBOW. WORKED W/ PHYSICAL, OCCUPATIONAL AND SPEECH THERAPY THIS SHIFT. BED BATH AND LINEN CHANGE THIS SHIFT. CALL LIGHT W/IN REACH. VSS. 4L N/C. TELE IN PLACE, 8 BEAT V-TACH PER TELE MONITOR REPORTED TO DR. PINEDO. PLAN TO DISCHARGE TO WHEN PT STABLE.
--- NOTE | 2021-09-19 21:10 | NUR ---
HEMAL TELE REPORTED TRIGEMINY RUN. UPON ASSESSMENT, ASYMPTOMATIC AND DENIED ANY PAIN OR VERTIGO. ALERT AND ORIENTED. CURRENTLY SINUS RHYTHM AT 73. O2 PER NC. CALL LIGHT IN REACH
--- NOTE | 2021-09-20 04:14 | NUR ---
A&Ox4. OPTED TO STAY IN RECLINER T/O SHIFT AND DECLINES TRANSFER TO BED. DECLINED ALL ATTEMPTS TO GO TO BATHROOM OR REPOSITION. SEEN BY RT FOR BREATHING TX X2 T/O SHIFT. C/O FEELING THOUGH HE IS GETTING THRUSH; WILL PASS TO DAYSHIFT RN TO DISCUSS WITH PCP. EPISODE OF VTACH AND TRIGEMINY ON TELE REPORTED TO BIGG DANGELO RN; PT WAS ASYMPTOMATIC.
[2021-09-20 04:58] LABS: BASOPHILS ABSOLUTE AUTO 0.03 K/mm3 (0.00-0.23); BASOPHILS PERCENT AUTO 0 % (0-2); EOSINOPHILS ABSOLUTE AUTO 0.05 K/mm3 (0.00-0.68); EOSINOPHILS PERCENT AUTO 0 % (0-6); Hematocrit 45.2 % (37.0-53.0); Hemoglobin 14.8 g/dL (13.5-17.5); IMMATURE GRAN ABSOLUTE AUTO 0.28 K/mm3 (0.00-0.10); IMMATURE GRAN PERCENT AUTO 2 % (0-1); LYMPHOCYTES ABSOLUTE AUTO 1.66 K/mm3 (0.84-5.20); LYMPHOCYTES PERCENT AUTO 9 % (21-46); MONOCYTES ABSOLUTE AUTO 2.49 K/mm3 (0.16-1.47); MONOCYTES PERCENT AUTO 14 % (4-13); Mean Corpuscular HGB 27.5 pg (26.0-34.0); Mean Corpuscular HGB Conc 32.7 g/dL (31.5-36.5); Mean Corpuscular Volume 84 fL (80-100); Mean Platelet Volume 11.2 fL (9.1-12.4); NEUTROPHILS ABSOLUTE AUTO 13.75 K/mm3 (1.96-9.15); NEUTROPHILS PERCENT AUTO 75 % (41-73); Platelet Count 275 K/mm3 (150-400); RDW Coefficient Variation 19.6 % (11.7-14.2); RDW Standard Deviation 58.9 fL (35.1-46.3); Red Blood Cell Count 5.39 M/mm3 (4.30-5.90); White Blood Cell Count 18.26 K/mm3 (4.00-11.30)
[2021-09-20 05:27] LABS: Albumin, Blood 2.8 g/dL (3.4-5.0); Anion Gap 10 mmol/L (6-16); Blood Urea Nitrogen 25 mg/dL (8-24); Bun/Creatinine Ratio 38.5 (12.0-20.0); CO2, Blood 24 mmol/L (21-32); Calcium, Blood 8.4 mg/dL (8.5-10.1); Chloride, Blood 98 mmol/L (98-108); Creatinine, Blood 0.65 mg/dL (0.60-1.20); Glomerular Filtration Rate 94 (60-); Glucose, Blood 93 mg/dL (70-99); Phosphorus, Blood 3.1 mg/dL (2.5-4.9); Potassium, Blood 4.8 mmol/L (3.5-5.5); Sodium, Blood 132 mmol/L (136-145)
--- NOTE | 2021-09-20 15:48 | NUR ---
SHIFT SUMMARY PATIENT A&OX3-4, FORGETFUL. CONT OF BLADDER, NEEDING ASSITANCE USING URINAL. ON 4L VIA NC. RECEIVED MULTIPLE BREATHING TREATMENTS T/O SHIFT. WORKED WITH PT AND OT. 2P MAX ASSIST. PT/OT RECOMMENDING SNF. IN THIS AM HELPING WITH PATIENT CARE. VSS. WILL CONTINUE TO MONITOR.
--- NOTE | 2021-09-20 19:40 | NUR ---
ASSISTED OUT OF BED INTO BEDSIDE RECLINER. PT VOICED LETHARGY AND THAT HE COULDNT HELP MUCH HE USUALLY DID. O2 PER NC AT 4L/MIN. CALL LIGHT IN REACH.
--- NOTE | 2021-09-20 21:49 | NUR ---
PT'S BROUGHT HIM IN SOME CRACKERS, CONTRAINDICATED IN HIS PUREE DIET ORDERED BY SPEECH THERAPY. PT CALLED , UPSET, BECAUSE HIS CRACKERS WERE PUTA WAY. HIS CALLED THIS NURSE AND REQUESTED THE CRACKERS BE GIVEN BACK TO THE PATIENT. SHE STATES THEY ACCEPT ANY ADVERSE EFFECT THAT MAY BE ENCOUNTERED BY THE PT'S CONSUMPTION OF SAID CRACKERS IN LIGHT OF HIS PUREE DIET ORDER. PT AGREES TO EAT HIS CRACKERS WITH HIS COFFEE, TO SOFTEN THEM AND HELP WITH EASIER SWALLOWING. PT AND WERE OKAY WITH THIS. SHE WAS ALSO CONCERNED HE WAS HAVING C/O BACK PAIN. UPDATED HIS , LETTING HIM KNOW THIS RN HAD ALREADY ADMINISTERED PRN APAP AND REPOSITIONED INTO RECLINER TO AID IN BACK PAIN RELIEF. WAS GRATEFUL AND PATIENT STATES HE IS FEELING BETTER.
--- NOTE | 2021-09-21 04:04 | NUR ---
A&Ox3-4 WITH OCCASIONAL EPISODE OF CONFUSION. C/O BACK PAIN AT BEGINNING OF SHIFT RELIEVED WITH REPOSITIONING AND APAP. CONSISTENT IN USING BEDSIDE URINAL. NO BM DURING THIS SHIFT. CONTINUES WITH BREATHING Tx VIA RT. RT ALSO OBTAINED SPUTUM Cx. PT TO HAVE CXR TODAY R/O WORSENING PN. LUNG SOUNDS COARSE. NO FEVER T/O NIGHT.
[2021-09-21 04:39] LABS: BASOPHILS ABSOLUTE AUTO 0.04 K/mm3 (0.00-0.23); BASOPHILS PERCENT AUTO 0 % (0-2); EOSINOPHILS ABSOLUTE AUTO 0.05 K/mm3 (0.00-0.68); EOSINOPHILS PERCENT AUTO 0 % (0-6); Hematocrit 45.4 % (37.0-53.0); Hemoglobin 14.6 g/dL (13.5-17.5); IMMATURE GRAN ABSOLUTE AUTO 0.33 K/mm3 (0.00-0.10); IMMATURE GRAN PERCENT AUTO 2 % (0-1); LYMPHOCYTES ABSOLUTE AUTO 1.15 K/mm3 (0.84-5.20); LYMPHOCYTES PERCENT AUTO 6 % (21-46); MONOCYTES PERCENT AUTO 13 % (4-13); Mean Corpuscular HGB 27.3 pg (26.0-34.0); Mean Corpuscular HGB Conc 32.2 g/dL (31.5-36.5); Mean Corpuscular Volume 85 fL (80-100); Mean Platelet Volume 10.8 fL (9.1-12.4); NEUTROPHILS ABSOLUTE AUTO 15.73 K/mm3 (1.96-9.15); NEUTROPHILS PERCENT AUTO 79 % (41-73); Platelet Count 259 K/mm3 (150-400); RDW Coefficient Variation 19.3 % (11.7-14.2); Red Blood Cell Count 5.34 M/mm3 (4.30-5.90)
[2021-09-21 04:59] LABS: Albumin, Blood 2.7 g/dL (3.4-5.0); Anion Gap 9 mmol/L (6-16); Blood Urea Nitrogen 23 mg/dL (8-24); Bun/Creatinine Ratio 71.9 (12.0-20.0); CO2, Blood 24 mmol/L (21-32); Calcium, Blood 8.3 mg/dL (8.5-10.1); Chloride, Blood 98 mmol/L (98-108); Creatinine, Blood 0.32 mg/dL (0.60-1.20); Glomerular Filtration Rate 117 (60-); Glucose, Blood 96 mg/dL (70-99); Phosphorus, Blood 3.3 mg/dL (2.5-4.9); Potassium, Blood 4.9 mmol/L (3.5-5.5); Sodium, Blood 131 mmol/L (136-145)
--- NOTE | 2021-09-21 10:00 | NUR ---
PATIENT ON PUREE DIET PER SPEECH THERAPY. PATIENTS BROUGHT PATIENT A DOUGHNUT. PATIENT AND EDUCATED ABOUT PUREE DIET AND ASPIRATION RISKS. PATIENTS CONTINUES TO GIVE PATIENT DOUGHNUT.
--- NOTE | 2021-09-21 11:00 | NUR ---
NOTFIED PATIENT HAVING INCREASED RATE OF PVCS PER BOAT PATCHER PLASTIC, NOTIFIED DR. COLLINS, LABS ORDERED.
[2021-09-21 11:25] LABS: Potassium, Blood 4.1 mmol/L (3.5-5.5)
--- NOTE | 2021-09-21 18:52 | NUR ---
SHIFT SUMMARY A&OX3-4, FORGETFUL. SEEN BY SPEECH THERAPY THIS AM. FAILED SWALLOW EVAL AND NPO. PLAN FOR BARRIUM SWALLOW TOMORROW. ON TELE WITH INCREASED PVC AND TRIGEMINY EARLY AFTERNOON. PATIENT ASYMPTOMATIC AND LABS NORMAL. BRIEFLY WORKED WITH PT/OT TODAY, BUT PATIENT MORE CONCERNED ABOUT NPO STATUS. ON 4L NC, NEEDS REMINDED TO KEEP NC ON. REPORT GIVEN TO ONCOMING RN.
--- NOTE | 2021-09-22 04:31 | NUR ---
ASSUMED CARE OF PT AT 1900 HRS. NO ACUTE CHANGES THIS SHIFT. PT IS ALERT TO SELF AND PLACE ONLY, IS ONCONTINENT AND IS A MAX 2PA OOB. PT RESTING IN CHAIR AT THE START OF SHIFT, PT MOVED TO BED AND REQUIRED 2 STAFF TO HELP PT TO BED. PT IS NPO D/T FAILING SWALLOW SCREEN, WILL HAVE BARRIUM SWALLOW PERFORMED THIS AM. PT RESTS BETWEEN CARES, IS ABLE TO SLEEP 6+ HOURS THIS SHIFT. WILL CONTINUE TO MONITOR AND GIVE HANDOFF REPORT TO DAYSHIFT RN.
[2021-09-22 05:12] LABS: BASOPHILS ABSOLUTE AUTO 0.04 K/mm3 (0.00-0.23); BASOPHILS PERCENT AUTO 0 % (0-2); EOSINOPHILS ABSOLUTE AUTO 0.09 K/mm3 (0.00-0.68); EOSINOPHILS PERCENT AUTO 1 % (0-6); Hematocrit 45.3 % (37.0-53.0); Hemoglobin 14.5 g/dL (13.5-17.5); IMMATURE GRAN ABSOLUTE AUTO 0.33 K/mm3 (0.00-0.10); IMMATURE GRAN PERCENT AUTO 2 % (0-1); LYMPHOCYTES ABSOLUTE AUTO 1.12 K/mm3 (0.84-5.20); LYMPHOCYTES PERCENT AUTO 6 % (21-46); MONOCYTES ABSOLUTE AUTO 2.41 K/mm3 (0.16-1.47); MONOCYTES PERCENT AUTO 13 % (4-13); Mean Corpuscular HGB 27.5 pg (26.0-34.0); Mean Corpuscular Volume 86 fL (80-100); Mean Platelet Volume 10.6 fL (9.1-12.4); NEUTROPHILS ABSOLUTE AUTO 15.35 K/mm3 (1.96-9.15); NEUTROPHILS PERCENT AUTO 79 % (41-73); Platelet Count 266 K/mm3 (150-400); RDW Coefficient Variation 19.3 % (11.7-14.2); Red Blood Cell Count 5.27 M/mm3 (4.30-5.90); White Blood Cell Count 19.34 K/mm3 (4.00-11.30)
[2021-09-22 05:46] LABS: Albumin, Blood 2.7 g/dL (3.4-5.0); Anion Gap 8 mmol/L (6-16); Blood Urea Nitrogen 19 mg/dL (8-24); CO2, Blood 27 mmol/L (21-32); Calcium, Blood 8.3 mg/dL (8.5-10.1); Chloride, Blood 98 mmol/L (98-108); Creatinine, Blood 0.66 mg/dL (0.60-1.20); Glomerular Filtration Rate 94 (60-); Glucose, Blood 85 mg/dL (70-99); Phosphorus, Blood 3.5 mg/dL (2.5-4.9); Potassium, Blood 4.2 mmol/L (3.5-5.5); Sodium, Blood 133 mmol/L (136-145)
--- NOTE | 2021-09-22 18:15 | NUR ---
SHIFT SUMMARY- SPOKE TO DR MCKEON, AFTER TALKING WITH SPEECH THERAPY, IT WAS MENTIONED THE DIET ORDER WOULD BE CHANGED HOWEVER IT WAS STILL MECHANICAL SOFT GROUND MEAT. RECIEVED AN ORDER FOR PUREE AND PUDDING THICK LIQUIDS. MICONOZONLE POWDER ORDER FOR THE RASH IN THE PT GROIN FOLDS AND NYSTATIN SWISH AND SPIT ORDERED FOR THRUSH PER DR MCKEON. PT IS CURRENTLY UP IN A CHAIR EATING HIS DINNER, SEEMS TO BE DOING WELL. HOME O2 EVAL WAS DONE TODAY AND THE PT FAILED IT. O2 REQUIREMENTS WERE MORE THAN 10L. PT IS A 2P MAX ASSIST WITH TRANSFERS AND A THIRD PERSON TO STAND BY FOR SAFETY. PT HAD A BARIUM SWALLOW EVAL TODAY THAT SUGGESTED NPO, HOWEVER DR MCKEON SPOKE TO THE FAMILY AND THEY ARE AWARE OF THE RISK OF ASPIRATION. CODE STATUS DISCUSSED WITH THE PT AND SPOUSE AND HE WAS CHANGED TO DNI WITH NO COMPRESSIONS. PT SITTING UP IN A RECLINER NO S&S OF DISTRESS NOTED TELE DC'D TODAY. WILL CTM AND PASS ON TO NIGHT RN IN BEDSIDE REPORT.
[2021-09-23] MEDS ORDERED: PRED20 PO (16:06)
--- NOTE | 2021-09-23 18:17 | NUR ---
Met with pt and his at the bedside today. Pt's was initially "frustrated" she stated. She noticed pt is weaker, urine is concentrated, and he is more lethargic than normal". Reviewed pt's chart, and discussed the risk of aspiration with eating vs a PEG tube. They were both informed of the aspiration risk, and pt chose a pureed diet vs NPO with tube feed. After some time discussing the big changes the pt has had over the past week, pt told his he can feel that he is dying, and his then agreed to take pt home with hospice. quality project manager will help with this process.
--- NOTE | 2021-09-23 19:15 | NUR ---
PER TAMMY RN - DISCHARGE PUT ON HOLD UNTIL TOMORROW.
--- NOTE | 2021-09-23 19:35 | NUR ---
SHIFT SUMMARY: PT ALERT AND OREIENTATED. PT WAS SEEN BY RT FOR A HOME 02 EVALUATION. PT AT 10L NC WITH ACTIVITY AND 5L NC AT RESTING. PT DIET WAS ADVANCED TO PUREE AND PUDDING THICK LIQUID TORLERATED. PT REMAINED IN BED DUE TO WEAKNESS AND DYSPNEA OF EXERTION. PT HAD A PALLITIE CONSULTATION. PT PLANS FOR DISCHARGE HOME WITH . PT RESTING IN BED WITH CALL LIGHT WITH IN REACH.
--- NOTE | 2021-09-24 03:46 | NUR ---
PROVIDED THICKENED LEMON WATER PER PATIENT REQUEST - PT HOB UP - PT WAS ABLE TO SWALLOW THICKENED PO FLUIDS, BUT DID HAVE TO CLEAR HIS THROAT X1, OTHERWISE NO COMPLICATIONS WITH SWALLOWING. CALL LIGHT WITHIN REACH. BED IN LOW POSITION.
--- NOTE | 2021-09-24 04:29 | NUR ---
SHIFT SUMMARY - PT IS ANTICIPATING GOING HOME TODAY. PER DAY SHIFT REPORT, POTENTIAL FOR PT GOING HOME ON HOSPICE TODAY. PT HAS REMAINED ON 4L HUMIDIED O2 THROUGHOUT THE NIGHT, VS HAVE REMAINED STABLE. PT HAS BEEN SLEEPING ON/OFF THROUGHOUT THE NIGHT. PT WAS ABLE TO USE THE URINAL THIS AM, AND REQUESTED PO FLUIDS - SEE I/O'S. CALL LIGHT WITHIN REACH. BED IN LOW POSITION. WILL CONTINUE TO MONITOR PT UNTIL AM SHIFT CHANGE.
--- NOTE | 2021-09-24 09:10 | NUR ---
Supportive visit this AM. Pt resting in bed with spouse at bedside. Offered active listening and answered questions. Pt to D/C home today with [facility] to admit Pt onto services tomorrow or Sunday. Provided Palliative Care contact information and instructed to call with any questions or concerns. Spoke with VICTOR MANUEL K[place]ney and discussed case. Palliative Care will remain available.
--- NOTE | 2021-09-24 11:50 | NUR ---
DISCHARGE NOTE- PT HAD WRITTEN DISCHARGE PAPERS IN HAND, IV DC'D PRIOR TO DISCHARGE. PT CHANGED AND DRESSED IN HIS HOME CLOTHES BY STAFF. PT WAS TAKEN VIA GURNEY TRANSPORT TO HIS HOME WHERE HE WILL BE ADMITTED TO HOSPICE IN THE NEXT TWO DAYS. PT SPOUSE IS AWARE OF THE DISCHARGE PLAN AND HAS BEEN VERY INVOLVED IN THE PROCESS. PT SATS DROPPED WITH THE TRANSFER TO THE GURNEY, TRANSPORT WAS NOTIFIED THE PT REQUIRES 10L WITH ANY MOVEMENT. SATS IMPROVED WITH O2 INCREASE. PT ALERT WITH NO S&S OF DISTRESS AT THE TIME OF DISCHARGE.
== END 2021-09-24 11:16 | disposition hospice, home (50) | DRG 871 ==
LOC: ER 02:25 → PCU 05:09 → MEDS 09-18 13:16 → ENPENDDIS 09-23 18:05 → MEDS 09-24 11:16
PROVIDERS: Family Medicine; Student in an Organized Health Care Education/Training Program; ADMIT Internal Medicine
PROC: 3E03329 Introduction of Other Anti-infective into Peripheral Vein, Percutaneous Approach (ICD-10-PCS; principal; 2021-09-15)
PROC: 5A09357 Assistance with Respiratory Ventilation, Less than 24 Consecutive Hours, Continuous Positive Airway Pressure (ICD-10-PCS; 2021-09-15)
DX: A41.9 Sepsis, unspecified organism (principal); J18.9 Pneumonia, unspecified organism; J69.0 Pneumonitis due to inhalation of food and vomit; J96.21 Acute and chronic respiratory failure with hypoxia; J96.22 Acute and chronic respiratory failure with hypercapnia; E87.1 Hypo-osmolality and hyponatremia; I47.1 Supraventricular tachycardia; Z66 Do not resuscitate; Z51.5 Encounter for palliative care; Z20.822 Contact with and (suspected) exposure to COVID-19; J43.9 Emphysema, unspecified; I11.0 Hypertensive heart disease with heart failure; I50.810 Right heart failure, unspecified; I07.1 Rheumatic tricuspid insufficiency; R65.20 Severe sepsis without septic shock; R13.10 Dysphagia, unspecified; I27.20 Pulmonary hypertension, unspecified; I49.3 Ventricular premature depolarization; I73.9 Peripheral vascular disease, unspecified; F17.210 Nicotine dependence, cigarettes, uncomplicated; E88.09 Other disorders of plasma-protein metabolism, not elsewhere classified; S09.90XA Unspecified injury of head, initial encounter; D64.9 Anemia, unspecified; Z79.899 Other long term (current) drug therapy; Z79.52 Long term (current) use of systemic steroids; Z79.51 Long term (current) use of inhaled steroids; Z90.49 Acquired absence of other specified parts of digestive tract; Z98.890 Other specified postprocedural states; Z98.52 Vasectomy status; Z98.49 Cataract extraction status, unspecified eye; Z85.46 Personal history of malignant neoplasm of prostate; Z85.828 Personal history of other malignant neoplasm of skin; Z99.81 Dependence on supplemental oxygen; W19.XXXA Unspecified fall, initial encounter
CPT/HCPCS: 0241U; 36415; 71045; 74230; 80048; 80053; 80069; 82803; 83605; 83735; 83880; 84132; 84145; 85025; 87070; 87077; 87186; 87205; 92526; 92610; 92611; 93005; 93010; 93306; 94640; 94644; 94660; 94664; 94760; 94762; 96365; 96375; 97110; 97162; 97166; 97530; 98960; 99285-25; A9270; J0295; J0456; J0696; J1650; J1940; J1956; J2405; J2920; J2930; J3475; J7040; J7050; J7512

== ENCOUNTER 2021-11-30 19:50 | Emergency (ER) | payer OTHER ==
[~2021-11-30] VITALS: Ht 167.6 cm; Wt 59.0 kg
[~2021-11-30 19:50] MED LIST changes: +Preservision S1 EACH PO; +SPIR25 PO
[2021-11-30 20:36] LABS: BASOPHILS ABSOLUTE AUTO 0.04 K/mm3 (0.00-0.23); BASOPHILS PERCENT AUTO 0 % (0-2); EOSINOPHILS ABSOLUTE AUTO 0.01 K/mm3 (0.00-0.68); EOSINOPHILS PERCENT AUTO 0 % (0-6); Hematocrit 39.2 % (37.0-53.0); Hemoglobin 13.2 g/dL (13.5-17.5); IMMATURE GRAN ABSOLUTE AUTO 0.09 K/mm3 (0.00-0.10); IMMATURE GRAN PERCENT AUTO 1 % (0-1); LYMPHOCYTES ABSOLUTE AUTO 1.69 K/mm3 (0.84-5.20); LYMPHOCYTES PERCENT AUTO 10 % (21-46); MONOCYTES ABSOLUTE AUTO 2.44 K/mm3 (0.16-1.47); MONOCYTES PERCENT AUTO 15 % (4-13); Mean Corpuscular HGB 27.9 pg (26.0-34.0); Mean Corpuscular HGB Conc 33.7 g/dL (31.5-36.5); Mean Corpuscular Volume 83 fL (80-100); Mean Platelet Volume 11.3 fL (9.1-12.4); NEUTROPHILS ABSOLUTE AUTO 12.28 K/mm3 (1.96-9.15); NEUTROPHILS PERCENT AUTO 74 % (41-73); Platelet Count 370 K/mm3 (150-400); RDW Coefficient Variation 15.6 % (11.7-14.2); Red Blood Cell Count 4.73 M/mm3 (4.30-5.90); White Blood Cell Count 16.55 K/mm3 (4.00-11.30)
[2021-11-30 20:58] LABS: Albumin, Blood 2.8 g/dL (3.4-5.0); Albumin/Globulin Ratio 0.7 (0.8-1.8); Bilirubin, Total 0.3 mg/dL (0.1-1.0); Bun/Creatinine Ratio 24.8 (12.0-20.0); Calcium, Blood 9.1 mg/dL (8.5-10.1); Creatinine, Blood 0.44 mg/dL (0.60-1.20); Globulin, Blood 4.1 g/dL (2.2-4.0); Potassium, Blood 4.1 mmol/L (3.5-5.5); Total Protein, Blood 6.9 g/dL (6.4-8.2)
[2021-11-30] MEDS ORDERED: AZIT250 PO (23:02)
[2021-11-30] MEDS ORDERED: PRED20 PO (23:02)
== END 2021-11-30 23:43 | disposition home or self-care (01) ==
LOC: ER 19:50
PROVIDERS: Emergency Medicine
DX: J44.1 Chronic obstructive pulmonary disease with (acute) exacerbation (principal); D72.829 Elevated white blood cell count, unspecified; I10 Essential (primary) hypertension; F17.210 Nicotine dependence, cigarettes, uncomplicated; Z79.899 Other long term (current) drug therapy; Z99.81 Dependence on supplemental oxygen; Z66 Do not resuscitate
CPT/HCPCS: 71045; 80053; 85025; 93005; 93010; 94644; 94664